=== PATIENT | male | born 1970 | race Caucasian/White ===

== ENCOUNTER 2016-12-10 14:40 | Inpatient (IN) | payer OTHER ==
[~2016-12-10] VITALS: Ht 180.3 cm; Wt 107.4 kg
[~2016-12-10 14:40] MED LIST: BCTROWC TOP; CRG/20 PO; HARVONI PO; LCTL30 PO; LSX20 PO; MULT-589 PO; NZRCR EXT; POTA20TA16 PO; PRT40 PO; RIBA200T4 PO; RIFA550T2 PO; SPRN100 PO
[2016-12-10] MEDS ORDERED: SODIUM CHLORIDE 0.9% 1000ML 1,000 ML IV STA (16:43)
--- NOTE | 2016-12-10 17:10 | DIAGNOSTIC IMAGING REPORT ---
CHEST ONE VIEW PORTABLE CLINICAL HISTORY: Altered mental status COMPARISON STUDY: 06/22/2015 FINDINGS: The cardiac and mediastinal contours remain stable. There is mild interstitial thickening. There is no lobar consolidation. As no overt failure. No pleural effusions are visualized.[ IMPRESSION: Mild interstitial thickening. No evidence of lobar consolidation Electronically signed by: Brice Coello M.D. 12/10/2016 5:08 PM Dictated Date/Time: 12/10/2016 5:08 PM
[2016-12-10] MEDS ORDERED: PRLSR20 PO (17:32)
[2016-12-10] MEDS ORDERED: FURO-85 PO (17:40)
[2016-12-10] MEDS ORDERED: SPIR25TA PO (17:42)
[2016-12-10] MEDS ORDERED: LACT10SO17 PO (17:44)
[2016-12-10] MEDS ORDERED: MoRPHine SULFATE 4 MG/ML 1 ML CARP\\VIAL IV STA (18:35)
[2016-12-10 18:41] LABS: INR 1.5 (0.9-1.1); PARTIAL THROMBOPLASTIN RATIO 1.4; PROTHROMBIN TIME (PATIENT) 16.2 SECONDS (9.0-12.0)
[2016-12-10 18:49] LABS: HEMATOCRIT 22.6 % (42-52); MEAN CELL VOLUME 84.3 fL (80-100); MEAN CORPUSCULAR HEMOGLOBIN 29.5 pg (25-34); PLATELET COUNT 61 K/uL (130-400); RED BLOOD COUNT 2.68 M/uL (4.7-6.1); WHITE BLOOD COUNT 5.91 K/uL (4.8-10.8)
[2016-12-10 18:53] LABS: BASO % 0.2 %; BASO ABS # 0.01 K/uL (0-0.2); COMPLETE YES; ECHINOCYTES 1+; EOS % 0.8 %; LYMPH % 13.7 %; LYMPH ABS # 0.81 K/uL (1.2-3.4); MONO % 9.1 %; NEUT % 75.2 %
[2016-12-10 19:52] LABS: ALKALINE PHOSPHATASE 165 U/L (45-117); ALT/SGPT 15 U/L (12-78); AST/SGOT 48 U/L (15-37); BLOOD UREA NITROGEN 11 mg/dl (7-18); BUN/CREATININE RATIO 10.4 (10-20); CALCIUM 6.6 mg/dl (8.5-10.1); CARBON DIOXIDE 22 mmol/L (21-32); CHLORIDE 108 mmol/L (98-107); GLUCOSE 85 mg/dl (70-99); MAGNESIUM 1.6 mg/dl (1.8-2.4); POTASSIUM 4.3 mmol/L (3.5-5.1); SODIUM 138 mmol/L (136-145)
[2016-12-10 20:10] LABS: URINE APPEARANCE CLOUDY (CLEAR); URINE COLOR DK YELLOW; URINE NITRITE POS (NEG); URINE SPECIFIC GRAVITY 1.014 (1.000-1.030); UROBILINOGEN NEG (NEG); ZZUR CULT IF INDIC CLEAN CATCH YES
[2016-12-10 20:13] LABS: MANUAL MICROSCOPIC REQUIRED? NO; REVIEW REQ? YES; URINE BILIRUBIN 3+ (NEG)
[2016-12-10] MEDS ORDERED: PIPERACILLIN/TAZOBACTAM 3.375 GM/100ML D5W IV STA (21:00)
--- NOTE | 2016-12-10 21:19 | EMERGENCY ROOM VISIT NOTE ---
History Report prepared by Florence: Kimberlee Younger Under the Supervision of: Dr. Garfield Raphael D.O. 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 The patient states that he has gained about 28 pounds in the last couple weeks which he relates to his increase in fluid retention. The patient state that he had these symptoms occurs in the past due to a blood infection and was treated with an antibiotic which resolved his symptoms. He also states that he has a history of cirrhosis due to hepatitis C. The patient states that he feels that he has appeared more jaundice recently than usual and has been sleeping more than usual. He states that recently he has had abdominal pain and a few weeks ago he had blood in his bowel but it has since been resolved. The patient denies any nausea, vomiting, diarrhea or skin infections. Source of History: patient Onset: a few weeks LITIGATION ATTORNEY Position: other (global) Symptom Intensity: 28 lbs Timing: worsening Associated Symptoms: + abdominal pain, + fevers, No diarrhea, No nausea, No vomiting Note: Patient denies any skin infections. Review of Systems See HPI for pertinent positives & negatives. A total of 10 systems reviewed and were otherwise negative. Past Medical & Surgical Medical Problems: (1) Acute gastric ulcer (2) Cellulitis (3) Chronic hepatitis C (4) Cirrhosis of liver (5) Dis Of Gallbladder Nos (6) Hypertension Nos Family History Diabetes mellitus Social History Smoking Status: Never Smoker Alcohol Use: other Drug Use: none Marital Status: single Housing Status: lives with family Occupation Status: unemployed Current/Historical Medications Scheduled Furosemide (Lasix), 20 MG PO BID Lactulose (Chronulac), 10 GM PO QID Nadolol (Corgard), 20 MG PO DAILY Omeprazole (Prilosec), 20 MG PO DAILY Potassium Ext Rel (Klor-Con), 20 MEQ PO DAILY Rifaximin (Xifaxan), 550 MG PO BID Spironolactone (Aldactone), 25 MG PO DAILY Allergies Coded Allergies: Furosemide (Verified Adverse Reaction, Unknown, MUSCLE CRAMPING, 10/22/14) Physical Exam Vital Signs Date Time Temp Pulse Resp B/P Pulse Ox O2 Delivery O2 Flow Rate FiO2 12/10/16 20:52 84 18 124/60 95 Room Air 12/10/16 20:43 86 12/10/16 19:28 85 18 121/53 95 Room Air 12/10/16 17:40 79 20 113/51 95 12/10/16 16:46 81 12/10/16 16:39 84 149/65 97 12/10/16 14:55 37.6 92 22 149/74 96 Room Air Physical Exam CONSTITUTIONAL/VITAL SIGNS: Reviewed / noted above. GENERAL: Non-toxic in appearance. INTEGUMENTARY: Warm, dry, and positive jaundice. HEAD: Normocephalic. EYES: scleral icterus positive or trauma. ENT/OROPHARYNX: clear and dry mucous membranes. LYMPHADENOPATHY/NECK: Is supple without lymphadenopathy or meningismus. RESPIRATORY: Lungs clear and equal. CARDIOVASCULAR: Regular rate and rhythm. GI/ABDOMEN: Soft and nontender. No organomegaly or pulsatile mass. No rebound or guarding. Normal bowel sounds. EXTREMITIES: Warm and well perfused. BACK: No CVA tenderness. NEUROLOGICAL: Intact without focal deficits. PSYCHIATRIC: normal affect. MUSCULOSKELETAL: Normally developed with good muscle tone. Medical Decision & Procedures ER Provider Diagnostic Interpretation: X ray results and stated below per my interpretation and radiology interpretation. CHEST ONE VIEW PORTABLE CLINICAL HISTORY: Altered mental status COMPARISON STUDY: 06/22/2015 FINDINGS: The cardiac and mediastinal contours remain stable. There is mild interstitial thickening. There is no lobar consolidation. As no overt failure. No pleural effusions are visualized.[ IMPRESSION: Mild interstitial thickening. No evidence of lobar consolidation Electronically signed by: Brice Coello M.D. 12/10/2016 5:08 PM Dictated Date/Time: 12/10/2016 5:08 PM Laboratory Results 12/10/16 18:22 Red Blood Count 2.68, Mean Corpuscular Volume 84.3, Mean Corpuscular Hemoglobin 29.5, Mean Corpuscular Hemoglobin Concent 35.0, Mean Platelet Volume 10.0, Neutrophils (%) (Auto) 75.2, Lymphocytes (%) (Auto) 13.7, Monocytes (%) (Auto) 9.1, Eosinophils (%) (Auto) 0.8, Basophils (%) (Auto) 0.2, Neutrophils # (Auto) 4.44, Lymphocytes # (Auto) 0.81, Monocytes # (Auto) 0.54, Eosinophils # (Auto) 0.05, Basophils # (Auto) 0.01 12/10/16 18:22 Test 12/10/16 14:30 12/10/16 18:22 Urine Color DK YELLOW Urine Appearance CLOUDY (CLEAR) Urine pH 6.0 (4.5-7.5) Urine Specific [place] 1.014 (1.000-1.030) Urine Protein NEG (NEG) Urine Glucose (UA) NEG (NEG) Urine Ketones NEG (NEG) Urine Occult Blood TRACE (NEG) Urine Nitrite POS (NEG) Urine Bilirubin 3+ (NEG) Urine Urobilinogen NEG (NEG) Urine Leukocyte Esterase MODERATE (NEG) Urine WBC (Auto) >30 /hpf (0-5) Urine RBC (Auto) 0-4 /hpf (0-4) Urine Hyaline Casts (Auto) 1-5 /lpf (0-5) Urine Epithelial Cells (Auto) 10-20 /lpf (0-5) Urine Bacteria (Auto) 4+ (NEG) Urine Yeast (Auto) PRESENT (NONE PRSENT) White Blood Count 5.91 K/uL (4.8-10.8) Red Blood Count 2.68 M/uL (4.7-6.1) Hemoglobin 7.9 g/dL (14.0-18.0) Hematocrit 22.6 % (42-52) Mean Corpuscular Volume 84.3 fL (80-100) Mean Corpuscular Hemoglobin 29.5 pg (25-34) Mean Corpuscular Hemoglobin Concent 35.0 g/dl (32-36) Platelet Count 61 K/uL (130-400) Mean Platelet Volume 10.0 fL (7.4-10.4) Neutrophils (%) (Auto) 75.2 % Lymphocytes (%) (Auto) 13.7 % Monocytes (%) (Auto) 9.1 % Eosinophils (%) (Auto) 0.8 % Basophils (%) (Auto) 0.2 % Neutrophils # (Auto) 4.44 K/uL (1.4-6.5) Lymphocytes # (Auto) 0.81 K/uL (1.2-3.4) Monocytes # (Auto) 0.54 K/uL (0.11-0.59) Eosinophils # (Auto) 0.05 K/uL (0-0.5) Basophils # (Auto) 0.01 K/uL (0-0.2) RDW Standard Deviation 65.9 fL (36.4-46.3) RDW Coefficient of Variation 21.5 % (11.5-14.5) Immature Granulocyte % (Auto) 1.0 % Immature Granulocyte # (Auto) 0.06 K/uL (0.00-0.02) Echinocytes 1+ Prothrombin Time 16.2 SECONDS (9.0-12.0) Prothromb Time International Ratio 1.5 (0.9-1.1) Activated Partial Thromboplast Time 35.5 SECONDS (21.0-31.0) Partial Thromboplastin Ratio 1.4 Anion Gap 8.0 mmol/L (3-11) Est Creatinine Clear Calc Drug Dose 104.6 ml/min Estimated GFR () 92.8 Estimated GFR (Non- 80.1 BUN/Creatinine Ratio 10.4 (10-20) Calcium Level 6.6 mg/dl (8.5-10.1) Magnesium Level 1.6 mg/dl (1.8-2.4) Total Bilirubin 10.3 mg/dl (0.2-1) Direct Bilirubin 8.5 mg/dl (0-0.2) Aspartate Amino Transf (AST/SGOT) 48 U/L (15-37) Alanine Aminotransferase (ALT/SGPT) 15 U/L (12-78) Alkaline Phosphatase 165 U/L (45-117) Ammonia 48.0 umol/L (11-32) Total Creatine Kinase 26 U/L (39-308) Creatine Kinase MB < 0.5 ng/ml (0.5-3.6) Creatine Kinase MB Ratio (0-3.0) Troponin I < 0.015 ng/ml (0-0.045) Total Protein 5.2 gm/dl (6.4-8.2) Albumin 1.3 gm/dl (3.4-5.0) Lipase 174 U/L (73-393) Thyroid Stimulating Hormone (TSH) 1.250 uIu/ml (0.300-4.500) Laboratory results as stated above per my review. Medications Administered Medications (Trade) Dose Ordered Sig/Jaren Route Start Time Stop Time Status Last Admin Dose Admin Sodium Chloride (Nss 1000ml) 1,000 ml @ 999 mls/hr Q1H1M STAT IV 2/6/17 16:43 12/10/16 17:43 DC 12/10/16 17:39 999 MLS/HR Morphine Sulfate (MoRPHine SULFATE INJ) 4 mg NOW STAT IV 12/10/16 18:35 12/10/16 18:36 DC 12/10/16 19:06 4 MG ECG Indication: abdominal pain Rate (beats per minute): 80 Rhythm: normal sinus Findings: no acute ischemic change, no ectopy ED Course 1636: Previous medical records were reviewed. The patient was evaluated in room C4. A complete history and physical examination was performed. 1642:Ordered Sodium Chloride 1,000 ml @ 999 mls/hr IV. 1834: Ordered Morphine Sulfate 4 mg IV. 2099: I reevaluated the patient and he was resting comfortably. 2111:I discussed the case with Dr. Kimo Morales. He agreed to evaluate the patient for further management and care. Medical Decision Differential includes acute coronary syndrome, myocardial infarction, CVA, TIA, anemia, infection, pneumonia, UTI, pyelonephritis, poor nutrition, dehydration, electrolyte disturbance,hypoglycemia, elevated ammonia. This is a 46-year-old male who presents to the ED with a chief complaint of fluid retention as well as increasing jaundice and sleeping all the time. The patient is a history of hepatitis C and cirrhosis. He states that he is noticed increased jaundice over the last 24 hours. He reports a 28 pound weight gain over the past few weeks. Compared to his weight a couple of years ago, he has actually lost weight, about 3 kg. His vital signs are stable. He is afebrile. His physical exam reveals jaundice and scleral icterus. His mucous membranes are dry. His abdomen soft and nontender. There is no other abnormality noted to the skin. Lungs were clear. EKG shows a normal sinus rhythm at a rate of 80. Chest x-ray is negative for acute disease. Hemoglobin is 7.9. INR is 1.5. Ammonia level is 48. Bilirubin is 10.3. Urine suggest infection. The patient was told results the test. He was treated with IV fluids, IV morphine for some pain as well as IV Zosyn. I spoke with the hospitalist, who will see the patient for further inpatient evaluation. Consults Time Called: 2099 Consulting Physician: Dr. Kimo Morales Returned Call: [phone] I discussed the case with Dr. Kimo Arzola Hospitalist. He agreed to evaluate the patient for further management and care. Impression Primary Impression: UTI (urinary tract infection) Additional Impressions: Anemia Hyperbilirubinemia GI bleed Cirrhosis Scribe Attestation The scribe's documentation has been prepared under my direction and personally reviewed by me in its entirety. I confirm that the note above accurately reflects all work, treatment, procedures, and medical decision making performed by me. Departure Information Dispostion Being Evaluated By Hospitalist Referrals MARCUS SHAW DO (PCP) Problem Qualifiers
--- NOTE | 2016-12-10 22:00 | History and Physical ---
History & Physical Date & Time of Service: Dec 10, 2016 at 21:47 Chief Complaint: Abdominal Distention, Jaundice Primary Care Physician: Valeria Lagunas M.D. History of Present Illness 46 year old male who presents to the ER with abdominal distention and jaundice. Patient reports his abdomen has been increasing in size and lower extremity edema over the past two weeks. He notes a 28 pound weight gain. He reports epigastric pain. No nausea or vomiting. His stools are chronically loose due to lactulose which are unchanged. He reports one episode of BRBPR. He reports blood was a small amount. He denies dark tarry stools. He also reports urinary frequency and hesitancy. He denies fever and chills. Over the past two days his skin has been turning yellow. He denies chest pain. He reports shortness of breath when laying down to sleep at night. He denies lightheadedness, dizziness , and diaphoresis. Family is at the bedside who report he has been lethargic over the past couple of days. In the ER, hgb is 7.9 (noted to be 7.8 06/2015). T. bili is found to be 10.5 (up from 3.5 06/2015). Ammonia is 48. U/A suggests possible UTI. Patient was given IV Zosyn, IVF, and morphine. Past Medical/Surgical History Medical Problems: (1) Cirrhosis Status: Chronic (2) Depression Status: Chronic (3) Esophageal varices Status: Chronic (4) Hepatitis C Status: Chronic (5) HTN (hypertension) Status: Chronic Family History FH: CAD (coronary artery disease) FATHER MOTHER Social History Smoking Status: Never Smoker Alcohol Use: former Drug Use: other (former IV drug use) Immunizations History of Influenza Vaccine: Yes Influenza Vaccine Date: Jul 05, 2012 History of Tetanus Vaccine?: Yes Tetanus Immunization Date: Jun 04, 2008 Allergies Coded Allergies: No Known Allergies (Unverified , 12/11/16) Home Medications Scheduled Furosemide (Lasix), 20 MG PO BID Lactulose (Chronulac), 10 GM PO QID Nadolol (Corgard), 20 MG PO DAILY Omeprazole (Prilosec), 20 MG PO DAILY Potassium Ext Rel (Klor-Con), 20 MEQ PO DAILY Rifaximin (Xifaxan), 550 MG PO BID Spironolactone (Aldactone), 25 MG PO DAILY Review of Systems 10 point review of systems was completed with the pertinent positives and negatives noted per the HPI Physical Exam Vital Signs Date Time Temp Pulse Resp B/P Pulse Ox O2 Delivery O2 Flow Rate FiO2 12/10/16 20:52 84 18 124/60 95 Room Air 12/10/16 20:43 86 12/10/16 19:28 85 18 121/53 95 Room Air 12/10/16 17:40 79 20 113/51 95 12/10/16 16:46 81 12/10/16 16:39 84 149/65 97 12/10/16 14:55 37.6 92 22 149/74 96 Room Air General Appearance: + mild distress (mild lethargy) Head: normocephalic Eyes: normal inspection ENT: hearing grossly normal Neck: supple, no JVD Respiratory/Chest: lungs clear, normal breath sounds, no respiratory distress Cardiovascular: regular rate, rhythm, + pertinent finding (+2 pitting edema BLLE) Abdomen/GI: normal bowel sounds, soft, + tenderness (epigastric), + distended Extremities/Musculoskelatal: normal inspection, no calf tenderness Neurologic/Psych: no motor/sensory deficits, oriented x 3, + pertinent finding (mild lethargy) Skin: warm/dry, + jaundice Diagnostics Laboratory Results Results Past 24 Hours Test 12/10/16 14:30 12/10/16 18:22 Range/Units Urine Color DK YELLOW Urine Appearance CLOUDY CLEAR Urine pH 6.0 4.5-7.5 Urine Specific [place] 1.014 1.000-1.030 Urine Protein NEG NEG Urine Glucose (UA) NEG NEG Urine Ketones NEG NEG Urine Occult Blood TRACE NEG Urine Nitrite POS NEG Urine Bilirubin 3+ NEG Urine Urobilinogen NEG NEG Urine Leukocyte Esterase MODERATE NEG Urine WBC (Auto) >30 0-5 /hpf Urine RBC (Auto) 0-4 0-4 /hpf Urine Hyaline Casts (Auto) 1-5 0-5 /lpf Urine Epithelial Cells (Auto) 10-20 0-5 /lpf Urine Bacteria (Auto) 4+ NEG Urine Yeast (Auto) PRESENT NONE PRSENT White Blood Count 5.91 4.8-10.8 K/uL Red Blood Count 2.68 4.7-6.1 M/uL Hemoglobin 7.9 14.0-18.0 g/dL Hematocrit 22.6 42-52 % Mean Corpuscular Volume 84.3 80-100 fL Mean Corpuscular Hemoglobin 29.5 25-34 pg Mean Corpuscular Hemoglobin Concent 35.0 32-36 g/dl Platelet Count 61 130-400 K/uL Mean Platelet Volume 10.0 7.4-10.4 fL Neutrophils (%) (Auto) 75.2 % Lymphocytes (%) (Auto) 13.7 % Monocytes (%) (Auto) 9.1 % Eosinophils (%) (Auto) 0.8 % Basophils (%) (Auto) 0.2 % Neutrophils # (Auto) 4.44 1.4-6.5 K/uL Lymphocytes # (Auto) 0.81 1.2-3.4 K/uL Monocytes # (Auto) 0.54 0.11-0.59 K/uL Eosinophils # (Auto) 0.05 0-0.5 K/uL Basophils # (Auto) 0.01 0-0.2 K/uL RDW Standard Deviation 65.9 36.4-46.3 fL RDW Coefficient of Variation 21.5 11.5-14.5 % Immature Granulocyte % (Auto) 1.0 % Immature Granulocyte # (Auto) 0.06 0.00-0.02 K/uL Echinocytes 1+ Prothrombin Time 16.2 9.0-12.0 SECONDS Prothromb Time International Ratio 1.5 0.9-1.1 Activated Partial Thromboplast Time 35.5 21.0-31.0 SECONDS Partial Thromboplastin Ratio 1.4 Sodium Level 138 136-145 mmol/L Potassium Level 4.3 3.5-5.1 mmol/L Chloride Level 108 98-107 mmol/L Carbon Dioxide Level 22 21-32 mmol/L Anion Gap 8.0 3-11 mmol/L Blood Urea Nitrogen 11 7-18 mg/dl Creatinine 1.10 0.60-1.40 mg/dl Est Creatinine Clear Calc Drug Dose 104.6 ml/min Estimated GFR () 92.8 Estimated GFR (Non- 80.1 BUN/Creatinine Ratio 10.4 10-20 Random Glucose 85 70-99 mg/dl Calcium Level 6.6 8.5-10.1 mg/dl Magnesium Level 1.6 1.8-2.4 mg/dl Total Bilirubin 10.3 0.2-1 mg/dl Direct Bilirubin 8.5 0-0.2 mg/dl Aspartate Amino Transf (AST/SGOT) 48 15-37 U/L Alanine Aminotransferase (ALT/SGPT) 15 12-78 U/L Alkaline Phosphatase 165 45-117 U/L Ammonia 48.0 11-32 umol/L Total Creatine Kinase 26 39-308 U/L Creatine Kinase MB < 0.5 0.5-3.6 ng/ml Creatine Kinase MB Ratio 0-3.0 Troponin I < 0.015 0-0.045 ng/ml Total Protein 5.2 6.4-8.2 gm/dl Albumin 1.3 3.4-5.0 gm/dl Lipase 174 73-393 U/L Thyroid Stimulating Hormone (TSH) 1.250 0.300-4.500 uIu/ml Microbiology Results 12/10/16 Blood Culture, Received Pending 12/10/16 Blood Culture, Received Pending 12/10/16 Urine Culture, Received Pending 12/10/16 Urine Culture, Received Pending Diagnostic Radiology CXR IMPRESSION: Mild interstitial thickening. No evidence of lobar consolidation Impression Assessment and Plan please refer to Dr. Malin's addendum for assessment and plan Assessment/Plan IM ATTENDING : Px seen and examined. Preceding documentation by NANI Barnard reviewed. FINAL ASSESSMENT AND PLAN as follows : 1. Decompensated cirrhosis HCV cirrhosis sp tx possible precipitants : infection (SBP) ? UGI bleed (px c/o epigastric pain with one episode of bloody stools; hx varices as per recent EGD) 2. mild hepatic encephalopathy 3. chronic anemia, hemoglobin at baseline 4. hypertension, stable 5. past tobacco/alcohol abuse as per records; PCU CT abd pelvis RE abd pain, further zuniga pending CT results diuretic rx IV PPI for poss UGIB, IV Ceftriaxone for prophylaxis facilitate lactulose. Follow ammonia. GI consult. Decompensated cirrhosis. DVT prophylaxis, SCDs. RE Gi bleed Full code.
[2016-12-10] MEDS ORDERED: NITROGLYCERIN 0.4 MG SL PER TAB CHARGE SL PRN (22:30)
[2016-12-10] MEDS ORDERED: LORAZEPAM 2 MG/ML 1 ML VIAL IV PRN (22:30)
[2016-12-10] MEDS ORDERED: ACETAMINOPHEN 325 MG TAB PO PRN (22:30)
[2016-12-10] MEDS ORDERED: ONDANSETRON INJ 2 MG/ML 2 ML VIAL IV PRN (22:30)
[2016-12-10] MEDS ORDERED: RIFAXIMIN TAB 550 MG TAB PO ONE ×2 (22:30→23:30)
[2016-12-10] MEDS ORDERED: OPTIRAY 320 IV PRN (22:30)
[2016-12-10] MEDS ORDERED: LORAZEPAM INJ 0.5 MG in SYRINGE 0.75 ML IV PRN (23:00)
[2016-12-10] MEDS ORDERED: PANTOprazole INJ 80 MG in SYRINGE 0 ML IV ONE (23:30)
[2016-12-10 23:54] VITALS: BP 111/66; PULSE 85; TEMP 37; O2SAT 96
[2016-12-11] MEDS ORDERED: FUROSEMIDE INJ 40 MG in SYRINGE 0 ML IV STA (00:19)
[2016-12-11] MEDS: LACTULOSE SYRUP 30 GM/45 ML UDP PO SCH ×4 (00:29→21:31)
[2016-12-11] MEDS ORDERED: PATIENT'S ALLERGY INFO NEEDS ENTERED SCH (00:30)
--- NOTE | 2016-12-11 02:52 | HISTORY & PHYSICAL EXAMINATION ---
DATE OF ADMISSION: 12/10/2016 IM ATTENDING : Eboni seen and examined. Preceding documentation by NANI Barnard reviewed. FINAL ASSESSMENT AND PLAN as follows : 1. Decompensated cirrhosis HCV cirrhosis sp tx possible precipitants : infection (SBP) ? UGI bleed (px c/o epigastric pain with one episode of bloody stools; hx varices as per recent EGD) 2. mild hepatic encephalopathy 3. chronic anemia, hemoglobin at baseline 4. hypertension, stable 5. past tobacco/alcohol abuse as per records; PCU CT abd pelvis RE abd pain, further zuniga pending CT results diuretic rx IV PPI for poss UGIB, IV Ceftriaxone for prophylaxis facilitate lactulose. Follow ammonia. GI consult. Decompensated cirrhosis. DVT prophylaxis, SCDs. Full code. MTDD
[2016-12-11 02:57] LABS: HEMATOCRIT 24.9 % (42-52)
[2016-12-11] MEDS ORDERED: CEFTRIAXONE SOD INJ 1 GM in DEXTROSE 5% ADD-VANTAGE 50ML 50 ML IV SCH (03:00)
[2016-12-11 04:49] VITALS: BP 111/66; PULSE 85; TEMP 37; Ht 180.3 cm; Wt 107.4 kg
[2016-12-11 08:21] VITALS: BP 104/59; PULSE 82; TEMP 36.7; O2SAT 93
--- NOTE | 2016-12-11 08:21 | DIAGNOSTIC IMAGING REPORT ---
CT SCAN OF THE ABDOMEN AND PELVIS WITH IV CONTRAST CLINICAL HISTORY: Generalized abdominal pain. COMPARISON STUDY: Abdominal CT dated 12/11/2016. TECHNIQUE: Following the IV administration of 93 cc of Optiray 320, CT scan of the abdomen and pelvis is performed from the lung bases to the proximal femora. Images are reviewed in the axial, sagittal, and coronal planes. IV contrast was administered without complication. Automated dose control exposure was utilized. The examination is degraded by large body habitus, and by streak artifact from the body wall abutting the CT gantry. CT DOSE: 1749.47 mGy.cm FINDINGS: Lung bases: The heart is mildly enlarged and without pericardial effusion. There are trace pleural effusions with dependent atelectasis. Gynecomastia is noted. There is a small hiatal hernia. Liver: The contrast-enhanced liver is cirrhotic in morphology and heterogeneous attenuation. There is nodularity of the hepatic surface contour with mild hypertrophy of the left lobe and caudate. There is no intrahepatic biliary ductal dilatation. The hepatic veins and portal veins are patent. There are perisplenic and perigastric varices. Recanalization is noted in the periumbilical vein. Gallbladder: The gallbladder is decompressed and contains calcified gallstones. There is nonspecific gallbladder wall thickening, likely related to cirrhosis and ascites. Spleen: The spleen is markedly enlarged, measuring 23.3 cm in length. Pancreas: The unenhanced pancreas is moderately atrophic and grossly unremarkable. Adrenal glands: Unremarkable. Kidneys: The contrast enhanced kidneys are mildly atrophic and without hydronephrosis. The kidneys enhance symmetrically. There is a small nonobstructing left renal calculus. Abdominal vasculature: The abdominal aorta is normal in course and caliber. Bowel: The gastric wall appears markedly thickened and edematous. There are dilated and fluid-filled loops of small bowel in the right lower quadrant. These measure up to 4.0 cm in diameter. The distal small bowel is decompressed. At least one transition point is identified in the mid abdomen on image #293. There is nonspecific wall thickening identified in the right colon, likely representing portal colopathy. The appendix is well-visualized and normal. Peritoneum: There is no intraperitoneal free air or abdominal ascites. There is a small volume of abdominopelvic ascites. No intraperitoneal free air is seen. There is no ascitic fluid containing umbilical hernia. Lymphadenopathy: None. Pelvic viscera: The bladder, prostate, and seminal vesicles are normal as visualized. Calcified phleboliths are seen in the pelvis. Skeletal structures: The skeletal structures are osteopenic. There is mild lumbosacral spondylosis. No lytic or blastic lesions are seen. Small bone islands are noted in the pelvis. Soft tissues: There is body wall edema. IMPRESSION: 1. Findings are consistent with a small bowel obstruction. At least one transition point is identified in the right mid abdomen. Several of the small bowel loops demonstrate a coiled appearance, and a closed loop obstruction is not excluded. Surgical consultation is advised. 2. Cirrhotic liver morphology with evidence of portal hypertension including marked splenomegaly, a small volume of abdominopelvic ascites, and omental collaterals/varices. 3. Cardiomegaly with evidence of fluid overload including body wall edema and trace pleural effusions. 4. Cholelithiasis. The gallbladder is decompressed. Gallbladder wall thickening is nonspecific and likely related to cirrhosis and ascites. Correlation with clinical findings and serum bilirubin levels be required. 5. Wall thickening and edema is identified in the distal stomach suggesting gastritis. 6. There is nonspecific wall thickening of the right colon, likely limited to portal colopathy. 7. Nonobstructing left renal calculus. 8. Additional changes as above. Electronically signed by: Keny Bush M.D. 12/11/2016 8:19 AM Dictated Date/Time: 12/11/2016 8:06 AM
[2016-12-11 08:34] LABS: HEMATOCRIT 23.8 % (42-52); MEAN CORPUSCULAR HEMOGLOBIN 28.6 pg (25-34); MEAN CORPUSCULAR HGB CONC 33.6 g/dl (32-36); WHITE BLOOD COUNT 6.35 K/uL (4.8-10.8)
[2016-12-11] MEDS: MoRPHine SULFATE 2 MG/ML CARP IV PRN ×2 (08:42→19:57)
[2016-12-11 08:45] LABS: MEAN PLATELET VOLUME 9.6 fL (7.4-10.4); PLATELET COUNT 57 K/uL (130-400)
[2016-12-11] MEDS: POTASSIUM CHLORIDE 20 MEQ TABCR PO SCH (08:48)
[2016-12-11] MEDS: RIFAXIMIN TAB 550 MG TAB PO SCH ×2 (08:48→21:31)
[2016-12-11] MEDS: NADOLOL 40 MG TAB PO SCH (08:49)
[2016-12-11 08:51] LABS: ALB/GLOB RATIO 0.3 (0.9-2); BUN/CREATININE RATIO 11.1 (10-20); CREATININE 1.2 mg/dl (0.60-1.40)
[2016-12-11] MEDS: PANTOprazole INJ 40 MG in SYRINGE 0 ML IV SCH ×2 (08:51→21:30)
[2016-12-11] MEDS ORDERED: FUROSEMIDE INJ 40 MG in SYRINGE 0 ML IV SCH (09:00)
[2016-12-11 09:49] LABS: ANISOCYTOSIS PRESENT; BASO % 0.2 %; BASO ABS # 0.01 K/uL (0-0.2); COMPLETE YES; EOS % 0.5 %; IG% 0.6 %; LYMPH % 11.7 %; LYMPH ABS # 0.74 K/uL (1.2-3.4)
--- NOTE | 2016-12-11 10:18 | Progress Note ---
Internal Med Progress Note Date of Service: Dec 11, 2016. Provider Documentation: SUBJECTIVE: Patient is asking for food. Does c/o abdominal distension, worsening x 2 weeks, abdominal pain, LE edema, weight gain. Nausea, no vomiting, no diarrhea. Last BM yesterday night, no blood. C/o subjective fevers OBJECTIVE: Vital Signs-as noted below Exam: General-Slow to respond, lethargic, oriented x 2 Eyes-Icterus Neck-Supple, NO JVD Lungs-AEBE decreased, no wheezing, rhonchi Heart-S1, S2 normal, no murmurs Abdomen-Soft, abdominal distension +, BS present, Non tender Extremities-Edema b/l up to below knee Neuro-Slow to respond, lethargic, oriented x 2 Lab data as noted below. CT ABDOMEN/PELVIS: IMPRESSION: 1. Findings are consistent with a small bowel obstruction. At least one transition point is identified in the right mid abdomen. Several of the small bowel loops demonstrate a coiled appearance, and a closed loop obstruction is not excluded. Surgical consultation is advised. 2. Cirrhotic liver morphology with evidence of portal hypertension including marked splenomegaly, a small volume of abdominopelvic ascites, and omental collaterals/varices. 3. Cardiomegaly with evidence of fluid overload including body wall edema and trace pleural effusions. 4. Cholelithiasis. The gallbladder is decompressed. Gallbladder wall thickening is nonspecific and likely related to cirrhosis and ascites. Correlation with clinical findings and serum bilirubin levels be required. 5. Wall thickening and edema is identified in the distal stomach suggesting gastritis. 6. There is nonspecific wall thickening of the right colon, likely limited to portal colopathy. 7. Nonobstructing left renal calculus. 8. Additional changes as above. ASSESSMENT & PLAN: ASSESSMENT/PLAN: CIRRHOSIS (HCV), DECOMPENSATED: -TB 10.3 on admission; Came with increasing abdominal distension, lower extremity edema. -On IV lasix, Rifaximin, Lactulose. -CT scan- mild ascites- small volume -GI consulted BACTEREMIA Bl cx came back positive for GNB -Sources: UTI. Considered SBP but CT scan- small volume ascites -Will d/c rocephin which was for SBP prophylaxis and change it to IV Zosyn for broader coverage -Follow up C/S urine, Bl cx C/S results SBO per CT scan -No hx of vomiting, had BM last night . CT scan shows SBO and recommends surgical consult -NPO -Will consult surgery HX OF BLOODY STOOL : -Had one episode of bloody stool 3 days ago. Hx of varices per recent EGD. No more episodes. HB stable around 8 -Protonix IV BID -H & H monitoring -GI consulted HEPATIC ENCEPHALOPATHY, MILD -Ammonia 48 on admission; Mental status- slow, but oriented x 2. -Lactulose 30 g TID, Rifaximin BID -Monitor CHRONIC ANEMIA -Hb at baseline -Monitor with hx of GI Bleeding/Varices THROMBOCYTOPENIA Platelets 61 on admission -Monitor DVT prophylaxis, SCDs. RE Gi bleed FULL CODE DISPOSITION To be determined Vital Signs: Date Time Temp Pulse Resp B/P Pulse Ox O2 Delivery O2 Flow Rate FiO2 12/11/16 08:21 36.7 82 16 104/59 93 Room Air 12/11/16 04:49 37.0 85 16 111/66 Room Air 12/11/16 00:00 Room Air 12/10/16 23:54 37.0 85 16 111/66 96 Room Air 12/10/16 22:21 37.0 85 18 122/69 95 12/10/16 21:47 85 18 128/70 95 Room Air 12/10/16 20:52 84 18 124/60 95 Room Air 12/10/16 20:43 86 12/10/16 19:28 85 18 121/53 95 Room Air 12/10/16 17:40 79 20 113/51 95 12/10/16 16:46 81 12/10/16 16:39 84 149/65 97 12/10/16 14:55 37.6 92 22 149/74 96 Room Air Lab Results: Results Past 24 Hours Test 12/10/16 14:30 12/10/16 18:22 12/11/16 02:45 12/11/16 08:15 Range/Units Urine Color DK YELLOW Urine Appearance CLOUDY CLEAR Urine pH 6.0 4.5-7.5 Urine Specific [place] 1.014 1.000-1.030 Urine Protein NEG NEG Urine Glucose (UA) NEG NEG Urine Ketones NEG NEG Urine Occult Blood TRACE NEG Urine Nitrite POS NEG Urine Bilirubin 3+ NEG Urine Urobilinogen NEG NEG Urine Leukocyte Esterase MODERATE NEG Urine WBC (Auto) >30 0-5 /hpf Urine RBC (Auto) 0-4 0-4 /hpf Urine Hyaline Casts (Auto) 1-5 0-5 /lpf Urine Epithelial Cells (Auto) 10-20 0-5 /lpf Urine Bacteria (Auto) 4+ NEG Urine Yeast (Auto) PRESENT NONE PRSENT White Blood Count 5.91 6.35 4.8-10.8 K/uL Red Blood Count 2.68 2.80 4.7-6.1 M/uL Hemoglobin 7.9 8.5 8.0 14.0-18.0 g/dL Hematocrit 22.6 24.9 23.8 42-52 % Mean Corpuscular Volume 84.3 85.0 80-100 fL Mean Corpuscular Hemoglobin 29.5 28.6 25-34 pg Mean Corpuscular Hemoglobin Concent 35.0 33.6 32-36 g/dl Platelet Count 61 57 130-400 K/uL Mean Platelet Volume 10.0 9.6 7.4-10.4 fL Neutrophils (%) (Auto) 75.2 82.0 % Lymphocytes (%) (Auto) 13.7 11.7 % Monocytes (%) (Auto) 9.1 5.0 % Eosinophils (%) (Auto) 0.8 0.5 % Basophils (%) (Auto) 0.2 0.2 % Neutrophils # (Auto) 4.44 5.21 1.4-6.5 K/uL Lymphocytes # (Auto) 0.81 0.74 1.2-3.4 K/uL Monocytes # (Auto) 0.54 0.32 0.11-0.59 K/uL Eosinophils # (Auto) 0.05 0.03 0-0.5 K/uL Basophils # (Auto) 0.01 0.01 0-0.2 K/uL RDW Standard Deviation 65.9 67.1 36.4-46.3 fL RDW Coefficient of Variation 21.5 21.5 11.5-14.5 % Immature Granulocyte % (Auto) 1.0 0.6 % Immature Granulocyte # (Auto) 0.06 0.04 0.00-0.02 K/uL Echinocytes 1+ Prothrombin Time 16.2 9.0-12.0 SECONDS Prothromb Time International Ratio 1.5 0.9-1.1 Activated Partial Thromboplast Time 35.5 21.0-31.0 SECONDS Partial Thromboplastin Ratio 1.4 Sodium Level 138 138 136-145 mmol/L Potassium Level 4.3 4.0 3.5-5.1 mmol/L Chloride Level 108 106 98-107 mmol/L Carbon Dioxide Level 22 21 21-32 mmol/L Anion Gap 8.0 11.0 3-11 mmol/L Blood Urea Nitrogen 11 13 7-18 mg/dl Creatinine 1.10 1.20 0.60-1.40 mg/dl Est Creatinine Clear Calc Drug Dose 104.6 95.9 ml/min Estimated GFR () 92.8 83.5 Estimated GFR (Non- 80.1 72.1 BUN/Creatinine Ratio 10.4 11.1 10-20 Random Glucose 85 86 70-99 mg/dl Calcium Level 6.6 7.0 8.5-10.1 mg/dl Magnesium Level 1.6 1.8-2.4 mg/dl Total Bilirubin 10.3 12.6 0.2-1 mg/dl Direct Bilirubin 8.5 0-0.2 mg/dl Aspartate Amino Transf (AST/SGOT) 48 50 15-37 U/L Alanine Aminotransferase (ALT/SGPT) 15 15 12-78 U/L Alkaline Phosphatase 165 147 45-117 U/L Ammonia 48.0 40.0 11-32 umol/L Total Creatine Kinase 26 39-308 U/L Creatine Kinase MB < 0.5 0.5-3.6 ng/ml Creatine Kinase MB Ratio 0-3.0 Troponin I < 0.015 0-0.045 ng/ml Pro-B-Type Natriuretic Peptide 484 0-450 pg/ml Total Protein 5.2 5.3 6.4-8.2 gm/dl Albumin 1.3 1.3 3.4-5.0 gm/dl Lipase 174 73-393 U/L Thyroid Stimulating Hormone (TSH) 1.250 0.300-4.500 uIu/ml Anisocytosis PRESENT Globulin 4.0 2.5-4.0 gm/dl Albumin/Globulin Ratio 0.3 0.9-2 Microbiology Results 12/10/16 Blood Culture - Preliminary, Resulted Gram Negative Bacilli 12/10/16 Blood Culture, Received Pending 12/10/16 Urine Culture, Received Pending
[2016-12-11] MEDS ORDERED: PIPERACILL/TAZOBAC CONSULT ACTIVE PRN (10:45)
[2016-12-11] MEDS ORDERED: PIPERACILL/TAZOBAC IV 3.375 GM in DEXTROSE 5% 100ML IV ONE (11:00)
[2016-12-11] MEDS: TRAMADOL HCL 50 MG TAB PO PRN (12:12)
--- NOTE | 2016-12-11 12:15 | Medical Consult ---
Consultation Date of Consultation: Dec 11, 2016. Attending Physician: Mimi Wise.Oscar History of Present Illness 46 y/o male with HCV cirrhosis admitted last night thru the ER for weight gain ( 28 lbs), jaundice, abdominal distention and LE edema. CT obtained this AM read as SBO, possible closed loop obstruction. Last BM was last night, was passing flatus last night, doesn't recall much today. No nausea, is asking to eat. No previous abdominal surgery. Past Medical/Surgical History (1) Cirrhosis Status: Chronic (2) Depression Status: Chronic (3) Esophageal varices Status: Chronic (4) Hepatitis C Status: Chronic (5) HTN (hypertension) Status: Chronic Family History FH: CAD (coronary artery disease) FATHER MOTHER Social History Smoking Status: Former Smoker Alcohol Use: former Drug Use: other (former IV drug use) Housing Status: lives with family Allergies Coded Allergies: No Known Allergies (Unverified , 12/11/16) Current Inpatient Medications Current Inpatient Medications Medications (Trade) Dose Ordered Sig/Jaren Route Start Time Stop Time Status Last Admin Dose Admin Ioversol (Optiray 320) 100 ml UD PRN IV 12/10/16 22:30 12/14/16 22:29 Lactulose (Chronulac Syrup) 30 gm TID PO 12/10/16 23:30 01/09/17 23:29 12/11/16 08:47 30 GM Acetaminophen (Tylenol Tab) 325 mg Q6H PRN PO 12/10/16 22:30 01/09/17 22:29 Nitroglycerin (Nitrostat Tab) 0.4 mg UD PRN SL 12/10/16 22:30 01/09/17 22:29 Nadolol (Corgard Tab) 20 mg DAILY PO 12/11/16 09:00 01/10/17 08:59 12/11/16 08:49 20 MG Potassium Chloride (Klor-Con Tab) 20 meq DAILY PO 12/11/16 09:00 01/10/17 08:59 12/11/16 08:48 20 MEQ Rifaximin (Xifaxan Tab) 550 mg BID PO 12/11/16 09:00 01/10/17 08:59 12/11/16 08:48 550 MG Ondansetron HCl (Zofran Inj) 4 mg Q6H PRN IV 12/10/16 22:30 01/09/17 22:29 Tramadol HCl (Ultram Tab) 25 mg Q6H PRN PO 12/10/16 22:30 01/09/17 22:29 Morphine Sulfate 2 mg 2 mg Q4H PRN IV 12/10/16 22:30 12/24/16 22:29 12/11/16 08:42 2 MG Lorazepam 0.5 mg/ Syringe 1 ml @ 1 mls/min Q4H PRN IV 12/10/16 23:00 01/09/17 22:59 Pantoprazole Sodium 40 mg/ Syringe 10 ml @ 5 mls/min BID IV 12/11/16 09:00 01/10/17 08:59 12/11/16 08:51 5 MLS/MIN Furosemide 40 mg/ Syringe 4 ml @ 4 mls/min DAILY IV 12/11/16 09:00 12/12/16 08:59 12/11/16 08:48 4 MLS/MIN Piperacillin Sod/ Tazobactam Sod/ Dextrose (Zosyn Iv/D5 100ml) 115 ml @ 28.75 mls/ hr Q8H IV 12/11/16 18:00 12/21/16 17:59 Piperacillin Sod/ Tazobactam Sod (Consult) 1 ea UD PRN N/A 12/11/16 10:45 01/10/17 10:44 Review of Systems Abdomen: No nausea, No pain, No vomiting Physical Exam Date Time Temp Pulse Resp B/P Pulse Ox O2 Delivery O2 Flow Rate FiO2 12/11/16 08:21 36.7 82 16 104/59 93 Room Air 12/11/16 04:49 37.0 85 16 111/66 Room Air 12/11/16 00:00 Room Air 12/10/16 23:54 37.0 85 16 111/66 96 Room Air 12/10/16 22:21 37.0 85 18 122/69 95 12/10/16 21:47 85 18 128/70 95 Room Air 12/10/16 20:52 84 18 124/60 95 Room Air 12/10/16 20:43 86 12/10/16 19:28 85 18 121/53 95 Room Air 12/10/16 17:40 79 20 113/51 95 12/10/16 16:46 81 12/10/16 16:39 84 149/65 97 12/10/16 14:55 37.6 92 22 149/74 96 Room Air General Appearance: no apparent distress Respiratory/Chest: lungs clear Cardiovascular: regular rate, rhythm Abdomen/GI: non tender, soft, + pertinent finding (edematous) Skin: + jaundice Laboratory Results Last 24 Hours Test 12/10/16 14:30 12/10/16 18:22 12/11/16 02:45 12/11/16 08:15 Urine Color DK YELLOW Urine Appearance CLOUDY Urine pH 6.0 Urine Specific [place] 1.014 Urine Protein NEG Urine Glucose (UA) NEG Urine Ketones NEG Urine Occult Blood TRACE Urine Nitrite POS Urine Bilirubin 3+ Urine Urobilinogen NEG Urine Leukocyte Esterase MODERATE Urine WBC (Auto) >30 /hpf Urine RBC (Auto) 0-4 /hpf Urine Hyaline Casts (Auto) 1-5 /lpf Urine Epithelial Cells (Auto) 10-20 /lpf Urine Bacteria (Auto) 4+ Urine Yeast (Auto) PRESENT White Blood Count 5.91 K/uL 6.35 K/uL Red Blood Count 2.68 M/uL 2.80 M/uL Hemoglobin 7.9 g/dL 8.5 g/dL 8.0 g/dL Hematocrit 22.6 % 24.9 % 23.8 % Mean Corpuscular Volume 84.3 fL 85.0 fL Mean Corpuscular Hemoglobin 29.5 pg 28.6 pg Mean Corpuscular Hemoglobin Concent 35.0 g/dl 33.6 g/dl Platelet Count 61 K/uL 57 K/uL Mean Platelet Volume 10.0 fL 9.6 fL Neutrophils (%) (Auto) 75.2 % 82.0 % Lymphocytes (%) (Auto) 13.7 % 11.7 % Monocytes (%) (Auto) 9.1 % 5.0 % Eosinophils (%) (Auto) 0.8 % 0.5 % Basophils (%) (Auto) 0.2 % 0.2 % Neutrophils # (Auto) 4.44 K/uL 5.21 K/uL Lymphocytes # (Auto) 0.81 K/uL 0.74 K/uL Monocytes # (Auto) 0.54 K/uL 0.32 K/uL Eosinophils # (Auto) 0.05 K/uL 0.03 K/uL Basophils # (Auto) 0.01 K/uL 0.01 K/uL RDW Standard Deviation 65.9 fL 67.1 fL RDW Coefficient of Variation 21.5 % 21.5 % Immature Granulocyte % (Auto) 1.0 % 0.6 % Immature Granulocyte # (Auto) 0.06 K/uL 0.04 K/uL Echinocytes 1+ Prothrombin Time 16.2 SECONDS Prothromb Time International Ratio 1.5 Activated Partial Thromboplast Time 35.5 SECONDS Partial Thromboplastin Ratio 1.4 Sodium Level 138 mmol/L 138 mmol/L Potassium Level 4.3 mmol/L 4.0 mmol/L Chloride Level 108 mmol/L 106 mmol/L Carbon Dioxide Level 22 mmol/L 21 mmol/L Anion Gap 8.0 mmol/L 11.0 mmol/L Blood Urea Nitrogen 11 mg/dl 13 mg/dl Creatinine 1.10 mg/dl 1.20 mg/dl Est Creatinine Clear Calc Drug Dose 104.6 ml/min 95.9 ml/min Estimated GFR () 92.8 83.5 Estimated GFR (Non- 80.1 72.1 BUN/Creatinine Ratio 10.4 11.1 Random Glucose 85 mg/dl 86 mg/dl Calcium Level 6.6 mg/dl 7.0 mg/dl Magnesium Level 1.6 mg/dl Total Bilirubin 10.3 mg/dl 12.6 mg/dl Direct Bilirubin 8.5 mg/dl Aspartate Amino Transf (AST/SGOT) 48 U/L 50 U/L Alanine Aminotransferase (ALT/SGPT) 15 U/L 15 U/L Alkaline Phosphatase 165 U/L 147 U/L Ammonia 48.0 umol/L 40.0 umol/L Total Creatine Kinase 26 U/L Creatine Kinase MB < 0.5 ng/ml Creatine Kinase MB Ratio Troponin I < 0.015 ng/ml Pro-B-Type Natriuretic Peptide 484 pg/ml Total Protein 5.2 gm/dl 5.3 gm/dl Albumin 1.3 gm/dl 1.3 gm/dl Lipase 174 U/L Thyroid Stimulating Hormone (TSH) 1.250 uIu/ml Anisocytosis PRESENT Globulin 4.0 gm/dl Albumin/Globulin Ratio 0.3 CT IMPRESSION: 1. Findings are consistent with a small bowel obstruction. At least one transition point is identified in the right mid abdomen. Several of the small bowel loops demonstrate a coiled appearance, and a closed loop obstruction is not excluded. Surgical consultation is advised. 2. Cirrhotic liver morphology with evidence of portal hypertension including marked splenomegaly, a small volume of abdominopelvic ascites, and omental collaterals/varices. 3. Cardiomegaly with evidence of fluid overload including body wall edema and trace pleural effusions. 4. Cholelithiasis. The gallbladder is decompressed. Gallbladder wall thickening is nonspecific and likely related to cirrhosis and ascites. Correlation with clinical findings and serum bilirubin levels be required. 5. Wall thickening and edema is identified in the distal stomach suggesting gastritis. 6. There is nonspecific wall thickening of the right colon, likely limited to portal colopathy. 7. Nonobstructing left renal calculus. 8. Additional changes as above. Electronically signed by: Keny Bush M.D. 12/11/2016 8:19 AM Dictated Date/Time: 12/11/2016 8:06 AM Assessment & Plan CIRRHOSIS (HCV), DECOMPENSATED Gram negative BACTEREMIA SBO vs ileus No acute abdominal findings, vitals stable. Overall clinical picture does not suggest closed loop obstruction. Could consider clears after GI eval. Will follow along.
--- NOTE | 2016-12-11 12:36 | Surgery Progress Note ---
Surgery Progress Note Date of Service Dec 11, 2016. Subjective see Jake Damian's note from today pt adm with abd distention, LE edema, wt gain, epigastric pain h/o cirrhosis, Hep C, ascites- has gm neg bacteremia on adm anemia, thrombocytopenia, elevated TB, PT/ INR CT shows dilated small bowel in lower abd- possible sbo- no h/o N/V Had normal loose BM and flatus today Objective Vital Signs: Date Time Temp Pulse Resp B/P Pulse Ox O2 Delivery O2 Flow Rate FiO2 12/11/16 08:21 36.7 82 16 104/59 93 Room Air 12/11/16 08:00 Room Air 12/11/16 04:49 37.0 85 16 111/66 Room Air 12/11/16 00:00 Room Air 12/10/16 23:54 37.0 85 16 111/66 96 Room Air 12/10/16 22:21 37.0 85 18 122/69 95 12/10/16 21:47 85 18 128/70 95 Room Air 12/10/16 20:52 84 18 124/60 95 Room Air 12/10/16 20:43 86 12/10/16 19:28 85 18 121/53 95 Room Air 12/10/16 17:40 79 20 113/51 95 12/10/16 16:46 81 12/10/16 16:39 84 149/65 97 12/10/16 14:55 37.6 92 22 149/74 96 Room Air General Appearance: no apparent distress Respiratory/Chest: no respiratory distress Cardiovascular: regular rate, rhythm Abdomen: normal bowel sounds (active bowel sounds), non tender, soft, + distended Extremities: + pedal edema (diffuse edema) Laboratory Results: Results Past 24 Hours Test 12/10/16 14:30 12/10/16 18:22 12/11/16 02:45 12/11/16 08:15 Range/Units Urine Color DK YELLOW Urine Appearance CLOUDY CLEAR Urine pH 6.0 4.5-7.5 Urine Specific [place] 1.014 1.000-1.030 Urine Protein NEG NEG Urine Glucose (UA) NEG NEG Urine Ketones NEG NEG Urine Occult Blood TRACE NEG Urine Nitrite POS NEG Urine Bilirubin 3+ NEG Urine Urobilinogen NEG NEG Urine Leukocyte Esterase MODERATE NEG Urine WBC (Auto) >30 0-5 /hpf Urine RBC (Auto) 0-4 0-4 /hpf Urine Hyaline Casts (Auto) 1-5 0-5 /lpf Urine Epithelial Cells (Auto) 10-20 0-5 /lpf Urine Bacteria (Auto) 4+ NEG Urine Yeast (Auto) PRESENT NONE PRSENT White Blood Count 5.91 6.35 4.8-10.8 K/uL Red Blood Count 2.68 2.80 4.7-6.1 M/uL Hemoglobin 7.9 8.5 8.0 14.0-18.0 g/dL Hematocrit 22.6 24.9 23.8 42-52 % Mean Corpuscular Volume 84.3 85.0 80-100 fL Mean Corpuscular Hemoglobin 29.5 28.6 25-34 pg Mean Corpuscular Hemoglobin Concent 35.0 33.6 32-36 g/dl Platelet Count 61 57 130-400 K/uL Mean Platelet Volume 10.0 9.6 7.4-10.4 fL Neutrophils (%) (Auto) 75.2 82.0 % Lymphocytes (%) (Auto) 13.7 11.7 % Monocytes (%) (Auto) 9.1 5.0 % Eosinophils (%) (Auto) 0.8 0.5 % Basophils (%) (Auto) 0.2 0.2 % Neutrophils # (Auto) 4.44 5.21 1.4-6.5 K/uL Lymphocytes # (Auto) 0.81 0.74 1.2-3.4 K/uL Monocytes # (Auto) 0.54 0.32 0.11-0.59 K/uL Eosinophils # (Auto) 0.05 0.03 0-0.5 K/uL Basophils # (Auto) 0.01 0.01 0-0.2 K/uL RDW Standard Deviation 65.9 67.1 36.4-46.3 fL RDW Coefficient of Variation 21.5 21.5 11.5-14.5 % Immature Granulocyte % (Auto) 1.0 0.6 % Immature Granulocyte # (Auto) 0.06 0.04 0.00-0.02 K/uL Echinocytes 1+ Prothrombin Time 16.2 9.0-12.0 SECONDS Prothromb Time International Ratio 1.5 0.9-1.1 Activated Partial Thromboplast Time 35.5 21.0-31.0 SECONDS Partial Thromboplastin Ratio 1.4 Sodium Level 138 138 136-145 mmol/L Potassium Level 4.3 4.0 3.5-5.1 mmol/L Chloride Level 108 106 98-107 mmol/L Carbon Dioxide Level 22 21 21-32 mmol/L Anion Gap 8.0 11.0 3-11 mmol/L Blood Urea Nitrogen 11 13 7-18 mg/dl Creatinine 1.10 1.20 0.60-1.40 mg/dl Est Creatinine Clear Calc Drug Dose 104.6 95.9 ml/min Estimated GFR () 92.8 83.5 Estimated GFR (Non- 80.1 72.1 BUN/Creatinine Ratio 10.4 11.1 10-20 Random Glucose 85 86 70-99 mg/dl Calcium Level 6.6 7.0 8.5-10.1 mg/dl Magnesium Level 1.6 1.8-2.4 mg/dl Total Bilirubin 10.3 12.6 0.2-1 mg/dl Direct Bilirubin 8.5 0-0.2 mg/dl Aspartate Amino Transf (AST/SGOT) 48 50 15-37 U/L Alanine Aminotransferase (ALT/SGPT) 15 15 12-78 U/L Alkaline Phosphatase 165 147 45-117 U/L Ammonia 48.0 40.0 11-32 umol/L Total Creatine Kinase 26 39-308 U/L Creatine Kinase MB < 0.5 0.5-3.6 ng/ml Creatine Kinase MB Ratio 0-3.0 Troponin I < 0.015 0-0.045 ng/ml Pro-B-Type Natriuretic Peptide 484 0-450 pg/ml Total Protein 5.2 5.3 6.4-8.2 gm/dl Albumin 1.3 1.3 3.4-5.0 gm/dl Lipase 174 73-393 U/L Thyroid Stimulating Hormone (TSH) 1.250 0.300-4.500 uIu/ml Anisocytosis PRESENT Globulin 4.0 2.5-4.0 gm/dl Albumin/Globulin Ratio 0.3 0.9-2 Microbiology Results 12/10/16 Blood Culture - Preliminary, Resulted Gram Negative Bacilli 12/10/16 Blood Culture, Received Pending 12/10/16 Urine Culture, Received Pending Assessment & Plan 12/11/16- Doubt has significant obstruction- try ice, popsicles, jello today. Has significant Hepatic insufficiency- elev TB, PT/INR, low plts anemia, ascites and probable SBP- would be extreme risk for abd operation.
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
[2016-12-11 16:10] VITALS: BP 121/70; PULSE 70; TEMP 37; O2SAT 92
--- NOTE | 2016-12-11 17:20 | DIAGNOSTIC IMAGING REPORT ---
PARACENTESIS UNDER ULTRASOUND GUIDANCE (NO CHARGE) CLINICAL HISTORY: cirrhosis, bacteremia, R/O SBP COMPARISON STUDY: CT scan dated December 11, 2016 FINDINGS: The risks, benefits, and alternatives to the procedure were discussed with the patient. Written informed consent was obtained. Following real-time ultrasound localization, the skin was prepped and draped. The study was very difficult from a technical standpoint given the patient's very large body habitus and redundant abdominal fat folds. There is only a small pocket of fluid within the right lower quadrant. The skin was anesthetized 1% lidocaine. An attempt was made to aspirate the fluid with a 20-gauge needle, but this was unsuccessful. There was no ultrasound staff available who were able to locate the ultrasound probe needle guide. The patient will be brought back in the morning when there is available staff to perform the study utilizing a needle guide. IMPRESSION: The examination was aborted, as there was no ultrasound staff available were able to locate the ultrasound probe needle guide. The patient will be rescheduled for the morning when there is adequate ultrasound staff available. Electronically signed by: Brice Coello M.D. 12/11/2016 5:19 PM Dictated Date/Time: 12/11/2016 5:11 PM
[2016-12-11] MEDS: PIPERACILL/TAZOBAC IV 3.375 GM in DEXTROSE 5% 100ML 100 ML IV SCH (17:27)
[2016-12-11 23:58] VITALS: BP 99/54; PULSE 70; TEMP 36.7; O2SAT 93
[2016-12-12] MEDS: PIPERACILL/TAZOBAC IV 3.375 GM in DEXTROSE 5% 100ML 100 ML IV SCH ×3 (02:19→18:55)
[2016-12-12] MEDS: MoRPHine SULFATE 2 MG/ML CARP IV PRN (06:27)
--- NOTE | 2016-12-12 06:39 | Surgery Progress Note ---
Surgery Progress Note Date of Service Dec 12, 2016. Subjective + bowel movement, + flatus, No nausea, No vomiting feeling much better- Large bm, good urine output- improved with IV fluid/ atbx Objective Vital Signs: Date Time Temp Pulse Resp B/P Pulse Ox O2 Delivery O2 Flow Rate FiO2 12/12/16 00:00 Room Air 12/11/16 23:58 36.7 70 18 99/54 93 Room Air 12/11/16 20:00 Room Air 12/11/16 16:10 37.0 70 16 121/70 92 Room Air 12/11/16 16:00 Room Air 12/11/16 08:21 36.7 82 16 104/59 93 Room Air 12/11/16 08:00 Room Air General Appearance: no apparent distress Respiratory/Chest: no respiratory distress Abdomen: normal bowel sounds, soft Laboratory Results: Results Past 24 Hours Test 12/11/16 08:15 12/11/16 15:47 12/12/16 04:44 Range/Units White Blood Count 6.35 4.8-10.8 K/uL Red Blood Count 2.80 4.7-6.1 M/uL Hemoglobin 8.0 14.0-18.0 g/dL Hematocrit 23.8 42-52 % Mean Corpuscular Volume 85.0 80-100 fL Mean Corpuscular Hemoglobin 28.6 25-34 pg Mean Corpuscular Hemoglobin Concent 33.6 32-36 g/dl Platelet Count 57 130-400 K/uL Mean Platelet Volume 9.6 7.4-10.4 fL Neutrophils (%) (Auto) 82.0 % Lymphocytes (%) (Auto) 11.7 % Monocytes (%) (Auto) 5.0 % Eosinophils (%) (Auto) 0.5 % Basophils (%) (Auto) 0.2 % Neutrophils # (Auto) 5.21 1.4-6.5 K/uL Lymphocytes # (Auto) 0.74 1.2-3.4 K/uL Monocytes # (Auto) 0.32 0.11-0.59 K/uL Eosinophils # (Auto) 0.03 0-0.5 K/uL Basophils # (Auto) 0.01 0-0.2 K/uL RDW Standard Deviation 67.1 36.4-46.3 fL RDW Coefficient of Variation 21.5 11.5-14.5 % Immature Granulocyte % (Auto) 0.6 % Immature Granulocyte # (Auto) 0.04 0.00-0.02 K/uL Anisocytosis PRESENT Sodium Level 138 136-145 mmol/L Potassium Level 4.0 3.5-5.1 mmol/L Chloride Level 106 98-107 mmol/L Carbon Dioxide Level 21 21-32 mmol/L Anion Gap 11.0 3-11 mmol/L Blood Urea Nitrogen 13 7-18 mg/dl Creatinine 1.20 0.60-1.40 mg/dl Est Creatinine Clear Calc Drug Dose 95.9 ml/min Estimated GFR () 83.5 Estimated GFR (Non- 72.1 BUN/Creatinine Ratio 11.1 10-20 Random Glucose 86 70-99 mg/dl Calcium Level 7.0 8.5-10.1 mg/dl Total Bilirubin 12.6 0.2-1 mg/dl Aspartate Amino Transf (AST/SGOT) 50 15-37 U/L Alanine Aminotransferase (ALT/SGPT) 15 12-78 U/L Alkaline Phosphatase 147 45-117 U/L Ammonia 40.0 11-32 umol/L Total Protein 5.3 6.4-8.2 gm/dl Albumin 1.3 3.4-5.0 gm/dl Globulin 4.0 2.5-4.0 gm/dl Albumin/Globulin Ratio 0.3 0.9-2 Assessment & Plan 12/12/16- affect much improved- sitting on edge of bed- will adv to full liquid diet- monitor for N/V- treating UTI/ bacteremia 12/11/16- Doubt has significant obstruction- try ice, popsicles, jello today. Has significant Hepatic insufficiency- elev TB, PT/INR, low plts anemia, ascites and probable SBP- would be extreme risk for abd operation. 12/11/16- Doubt has significant obstruction- try ice, popsicles, jello today. Has significant Hepatic insufficiency- elev TB, PT/INR, low plts anemia, ascites and probable SBP- would be extreme risk for abd operation.
[2016-12-12 07:16] LABS: HEMATOCRIT 23.9 % (42-52); MEAN CELL VOLUME 86.6 fL (80-100); MEAN CORPUSCULAR HGB CONC 33.5 g/dl (32-36); RED BLOOD COUNT 2.76 M/uL (4.7-6.1); WHITE BLOOD COUNT 4.84 K/uL (4.8-10.8)
[2016-12-12 07:20] LABS: MEAN PLATELET VOLUME 10.1 fL (7.4-10.4); PLATELET COUNT 67 K/uL (130-400)
[2016-12-12 07:36] VITALS: BP 102/50; PULSE 70; TEMP 36.6; O2SAT 93
[2016-12-12 07:44] LABS: BUN/CREATININE RATIO 12.8 (10-20); CALCIUM 7.2 mg/dl (8.5-10.1); CREATININE 1.3 mg/dl (0.60-1.40); POTASSIUM 3.7 mmol/L (3.5-5.1)
[2016-12-12 07:48] LABS: ALB/GLOB RATIO 0.3 (0.9-2)
[2016-12-12 07:52] LABS: ANISOCYTOSIS PRESENT; BASO % 0.2 %; BASO ABS # 0.01 K/uL (0-0.2); COMPLETE YES; EOS % 1.4 %; IG% 1.7 %; LYMPH % 16.5 %; MONO % 6.2 %
[2016-12-12] MEDS: PANTOprazole INJ 40 MG in SYRINGE 0 ML IV SCH ×2 (08:24→21:29)
[2016-12-12] MEDS: POTASSIUM CHLORIDE 20 MEQ TABCR PO SCH (08:24)
[2016-12-12] MEDS: NADOLOL 40 MG TAB PO SCH (08:24)
[2016-12-12] MEDS: RIFAXIMIN TAB 550 MG TAB PO SCH ×2 (08:25→21:29)
[2016-12-12 08:49] VITALS: O2SAT 93
--- NOTE | 2016-12-12 10:12 | Progress Note ---
Internal Med Progress Note Date of Service: Dec 12, 2016. Provider Documentation: SUBJECTIVE: Patient is feeling better today. More awake, sitting at edge of bed. Does c/o abdominal distension, worsening x 2 weeks, abdominal pain, LE edema, weight gain. Nausea, no vomiting, no diarrhea. BMS- multiple sec to lactulose Afebrile, no abdominal pain. Tolerating full liquid diet well. OBJECTIVE: Vital Signs-as noted below Exam: General-More awake, AAOX3, no distress Eyes-Icterus Neck-Supple, NO JVD Lungs-AEBE decreased, no wheezing, rhonchi Heart-S1, S2 normal, no murmurs Abdomen-Soft, abdominal distension +, BS present, Non tender Extremities-Edema b/l up to below knee Neuro-AAOX3, more awake, no focal deficits Lab data as noted below. CT ABDOMEN/PELVIS: IMPRESSION: 1. Findings are consistent with a small bowel obstruction. At least one transition point is identified in the right mid abdomen. Several of the small bowel loops demonstrate a coiled appearance, and a closed loop obstruction is not excluded. Surgical consultation is advised. 2. Cirrhotic liver morphology with evidence of portal hypertension including marked splenomegaly, a small volume of abdominopelvic ascites, and omental collaterals/varices. 3. Cardiomegaly with evidence of fluid overload including body wall edema and trace pleural effusions. 4. Cholelithiasis. The gallbladder is decompressed. Gallbladder wall thickening is nonspecific and likely related to cirrhosis and ascites. Correlation with clinical findings and serum bilirubin levels be required. 5. Wall thickening and edema is identified in the distal stomach suggesting gastritis. 6. There is nonspecific wall thickening of the right colon, likely limited to portal colopathy. 7. Nonobstructing left renal calculus. 8. Additional changes as above. ASSESSMENT & PLAN: ASSESSMENT/PLAN: CIRRHOSIS (HCV), DECOMPENSATED: -TB 10.3 on admission; Came with increasing abdominal distension, lower extremity edema. -S/P IV lasix x 1 day and now on hold per GI, Rifaximin, Lactulose- hold as > 3 BMS -CT scan- mild ascites- small volume -GI consulted. Discussed with dany Woods inputs BACTEREMIA (GNB) Bl cx came back positive for GNB- 1/2 bottles, 2nd- negative -Sources: UTI growing E coli. Considered SBP but CT scan- small volume ascites, unable to perform it yesterday and patient is refusing procedure today, but doubt it is SBP. -IV Zosyn (Day 2) -Urine c/s- E coli, Blood cx- GNB- follow up SBO per CT scan -No hx of vomiting, has had multiple BMS . CT scan shows SBO and recommended surgical consult -Tolerating full liquid diet well -Surgery on board- appreciate inputs HX OF BLOODY STOOL/GI BLEEDING : -Had one episode of bloody stool 3 days [employer]. Hx of varices per recent EGD. Has had EGD/Colonoscopy in past No more episodes. HB stable around 8 -Protonix IV BID -H & H monitoring -GI consulted. Appreciate inputs HEPATIC ENCEPHALOPATHY, MILD- Resolved -Ammonia 48 on admission-trending down; Mental status- slow, but oriented x 2 on admission, now AAOX3. -Lactulose 30 g TID (on hold as > 3 BMS), Rifaximin BID -Monitor CHRONIC ANEMIA -Hb at baseline -Monitor with hx of GI Bleeding/Varices. No episodes of GI bleeding THROMBOCYTOPENIA Platelets 61 on admission -No active bleeding noted -Monitor DVT prophylaxis, SCDs. RE Gi bleed FULL CODE DISPOSITION To be determined Vital Signs: Date Time Temp Pulse Resp B/P Pulse Ox O2 Delivery O2 Flow Rate FiO2 12/12/16 08:49 93 Room Air 12/12/16 07:36 36.6 70 20 102/50 93 Room Air 12/12/16 00:00 Room Air 12/11/16 23:58 36.7 70 18 99/54 93 Room Air 12/11/16 20:00 Room Air 12/11/16 16:10 37.0 70 16 121/70 92 Room Air 12/11/16 16:00 Room Air Lab Results: Results Past 24 Hours Test 12/11/16 15:47 12/12/16 06:58 Range/Units White Blood Count 4.84 4.8-10.8 K/uL Red Blood Count 2.76 4.7-6.1 M/uL Hemoglobin 8.0 14.0-18.0 g/dL Hematocrit 23.9 42-52 % Mean Corpuscular Volume 86.6 80-100 fL Mean Corpuscular Hemoglobin 29.0 25-34 pg Mean Corpuscular Hemoglobin Concent 33.5 32-36 g/dl Platelet Count 67 130-400 K/uL Mean Platelet Volume 10.1 7.4-10.4 fL Neutrophils (%) (Auto) 74.0 % Lymphocytes (%) (Auto) 16.5 % Monocytes (%) (Auto) 6.2 % Eosinophils (%) (Auto) 1.4 % Basophils (%) (Auto) 0.2 % Neutrophils # (Auto) 3.58 1.4-6.5 K/uL Lymphocytes # (Auto) 0.80 1.2-3.4 K/uL Monocytes # (Auto) 0.30 0.11-0.59 K/uL Eosinophils # (Auto) 0.07 0-0.5 K/uL Basophils # (Auto) 0.01 0-0.2 K/uL RDW Standard Deviation 67.3 36.4-46.3 fL RDW Coefficient of Variation 21.4 11.5-14.5 % Immature Granulocyte % (Auto) 1.7 % Immature Granulocyte # (Auto) 0.08 0.00-0.02 K/uL Anisocytosis PRESENT Sodium Level 138 136-145 mmol/L Potassium Level 3.7 3.5-5.1 mmol/L Chloride Level 105 98-107 mmol/L Carbon Dioxide Level 25 21-32 mmol/L Anion Gap 8.0 3-11 mmol/L Blood Urea Nitrogen 17 7-18 mg/dl Creatinine 1.30 0.60-1.40 mg/dl Est Creatinine Clear Calc Drug Dose 88.5 ml/min Estimated GFR () 75.8 Estimated GFR (Non- 65.4 BUN/Creatinine Ratio 12.8 10-20 Random Glucose 74 70-99 mg/dl Calcium Level 7.2 8.5-10.1 mg/dl Total Bilirubin 13.9 0.2-1 mg/dl Aspartate Amino Transf (AST/SGOT) 49 15-37 U/L Alanine Aminotransferase (ALT/SGPT) 17 12-78 U/L Alkaline Phosphatase 144 45-117 U/L Total Protein 5.3 6.4-8.2 gm/dl Albumin 1.3 3.4-5.0 gm/dl Globulin 4.0 2.5-4.0 gm/dl Albumin/Globulin Ratio 0.3 0.9-2
[2016-12-12] MEDS: TRAMADOL HCL 50 MG TAB PO PRN (10:30)
--- NOTE | 2016-12-12 12:19 | Gastroenterology Progress Note ---
Progress Note Date of Service: Dec 12, 2016 Subjective Pt evaluation today including: conversation w/ patient, physical exam, chart review, lab review, review of studies, review of inpatient medication list Mr. Xiong is a 46 yr old male admitted on 12/10 for decompensated cirrhosis. Urine/blood cultures positive for Gram (-) bacilli. CT with suggestion of small bowel obstruction but pt passing gas, stooling and surgery recommends conservative care. Pt refuses paracentesis this morning - and at this point as already on antibiotics for >24 hrs and antibiotics need to be continued to urinary sepsis, would agree to defer the paracentesis as it would not likely change the course of his treatment. Pt more awake and alert this morning. Says stomach feels a bit better. Asks for food. Of concern: T bili increasing: was 10.3 on arrival, today 13.9. Creatinine also increasin.1 on arrival, 1.3 today. Review of Systems Constitutional: No fever Respiratory: No cough Cardiac: No chest pain Abdomen: + diarrhea, + jaundice, + pain, + see HPI, No GI bleeding, No constipation, No nausea, No vomiting Male : No dysuria Neuro: + problem reported (poor historian but no evidence of confusion or memory loss), No memory loss Psych: No depression symptoms Heme: No abnormal bleeding/bruising Skin: + jaundice Medications Current Inpatient Medications Medications (Trade) Dose Ordered Sig/Jaren Route Start Time Stop Time Status Last Admin Dose Admin Ioversol (Optiray 320) 100 ml UD PRN IV 12/10/16 22:30 12/14/16 22:29 Lactulose (Chronulac Syrup) 30 gm TID PO 12/10/16 23:30 01/09/17 23:29 Future Hold 12/11/16 21:31 30 GM Acetaminophen (Tylenol Tab) 325 mg Q6H PRN PO 12/10/16 22:30 01/09/17 22:29 Nitroglycerin (Nitrostat Tab) 0.4 mg UD PRN SL 12/10/16 22:30 01/09/17 22:29 Nadolol (Corgard Tab) 20 mg DAILY PO 12/11/16 09:00 01/10/17 08:59 12/12/16 08:24 20 MG Potassium Chloride (Klor-Con Tab) 20 meq DAILY PO 12/11/16 09:00 01/10/17 08:59 12/12/16 08:24 20 MEQ Rifaximin (Xifaxan Tab) 550 mg BID PO 12/11/16 09:00 01/10/17 08:59 12/12/16 08:25 550 MG Ondansetron HCl (Zofran Inj) 4 mg Q6H PRN IV 12/10/16 22:30 01/09/17 22:29 Tramadol HCl 25 mg 25 mg Q6H PRN PO 12/10/16 22:30 01/09/17 22:29 12/12/16 10:30 25 MG Lorazepam 0.5 mg/ Syringe 1 ml @ 1 mls/min Q4H PRN IV 12/10/16 23:00 01/09/17 22:59 Pantoprazole Sodium 40 mg/ Syringe 10 ml @ 5 mls/min BID IV 12/11/16 09:00 01/10/17 08:59 12/12/16 08:24 5 MLS/MIN Piperacillin Sod/ Tazobactam Sod/ Dextrose (Zosyn Iv/D5 100ml) 115 ml @ 28.75 mls/ hr Q8H IV 12/11/16 18:00 12/21/16 17:59 12/12/16 10:28 28.75 MLS/HR Piperacillin Sod/ Tazobactam Sod (Consult) 1 ea UD PRN N/A 12/11/16 10:45 01/10/17 10:44 Objective Vital Signs Date Time Temp Pulse Resp B/P Pulse Ox O2 Delivery O2 Flow Rate FiO2 12/12/16 08:49 93 Room Air 12/12/16 07:36 36.6 70 20 102/50 93 Room Air 12/12/16 00:00 Room Air 12/11/16 23:58 36.7 70 18 99/54 93 Room Air 12/11/16 20:00 Room Air 12/11/16 16:10 37.0 70 16 121/70 92 Room Air 12/11/16 16:00 Room Air Physical Exam General Appearance: no apparent distress, + obese Neck: thyroid normal, no JVD Respiratory/Chest: lungs clear, + decreased breath sounds Cardiovascular: regular rate, rhythm, no JVD, no murmur Abdomen: soft, + tenderness (mild lower abdomen tenderness) Extremities: + pedal edema (improved, now non pitting bilateral lower leg and feet) Neurologic/Psych: alert, normal mood/affect, oriented x 3 Skin: + jaundice Laboratory Results Last 24 Hours Test 12/11/16 15:47 12/12/16 06:58 White Blood Count 4.84 K/uL Red Blood Count 2.76 M/uL Hemoglobin 8.0 g/dL Hematocrit 23.9 % Mean Corpuscular Volume 86.6 fL Mean Corpuscular Hemoglobin 29.0 pg Mean Corpuscular Hemoglobin Concent 33.5 g/dl Platelet Count 67 K/uL Mean Platelet Volume 10.1 fL Neutrophils (%) (Auto) 74.0 % Lymphocytes (%) (Auto) 16.5 % Monocytes (%) (Auto) 6.2 % Eosinophils (%) (Auto) 1.4 % Basophils (%) (Auto) 0.2 % Neutrophils # (Auto) 3.58 K/uL Lymphocytes # (Auto) 0.80 K/uL Monocytes # (Auto) 0.30 K/uL Eosinophils # (Auto) 0.07 K/uL Basophils # (Auto) 0.01 K/uL RDW Standard Deviation 67.3 fL RDW Coefficient of Variation 21.4 % Immature Granulocyte % (Auto) 1.7 % Immature Granulocyte # (Auto) 0.08 K/uL Anisocytosis PRESENT Sodium Level 138 mmol/L Potassium Level 3.7 mmol/L Chloride Level 105 mmol/L Carbon Dioxide Level 25 mmol/L Anion Gap 8.0 mmol/L Blood Urea Nitrogen 17 mg/dl Creatinine 1.30 mg/dl Est Creatinine Clear Calc Drug Dose 88.5 ml/min Estimated GFR () 75.8 Estimated GFR (Non- 65.4 BUN/Creatinine Ratio 12.8 Random Glucose 74 mg/dl Calcium Level 7.2 mg/dl Total Bilirubin 13.9 mg/dl Aspartate Amino Transf (AST/SGOT) 49 U/L Alanine Aminotransferase (ALT/SGPT) 17 U/L Alkaline Phosphatase 144 U/L Total Protein 5.3 gm/dl Albumin 1.3 gm/dl Globulin 4.0 gm/dl Albumin/Globulin Ratio 0.3 Assessment and Plan Mr. Xiong is a 46 yr old male with HepC/ETOH cirrhosis. Plan: 1. Continue treatment of urosepsis by primary care. 2. Appreciate surgery input. 3. Follow LFTs, Cr. Attg addendum: I interviewed an examined pt, reviewed chart and labs. Pt is without complaint. He is steph PO intake, with mult BM's. Abd is soft, and non tender. Presumably he has uro sepsis. Abx per primary service. His creat is rising; would cont albumin infusions for now.
[2016-12-12] MEDS: ALBUMIN HUMAN 25% 12.5 GM/50 ML VIAL IV SCH ×2 (14:59→15:51)
[2016-12-12] MEDS: OXYCODONE HCL IR 5 MG TAB (IMMEDIATE RELEASE) PO PRN (15:04)
[2016-12-12 15:05] VITALS: BP 104/54; PULSE 66
[2016-12-12 16:00] VITALS: O2SAT 93
[2016-12-12 16:44] VITALS: BP 115/59; PULSE 68; TEMP 36.2; O2SAT 93
[2016-12-12 23:52] VITALS: BP 96/51; PULSE 65; TEMP 36.8; O2SAT 93
[2016-12-13] VITALS (10 sets, daily range): BP systolic 106–133; BP diastolic 59–91; PULSE 66–78; TEMP 36.3–36.8; O2SAT 96–100
[2016-12-13] MEDS: OXYCODONE HCL IR 5 MG TAB (IMMEDIATE RELEASE) PO PRN ×3 (00:24→23:49)
[2016-12-13] MEDS: PIPERACILL/TAZOBAC IV 3.375 GM in DEXTROSE 5% 100ML 100 ML IV SCH ×2 (01:22→10:01)
[2016-12-13] MEDS: ALBUMIN HUMAN 25% 12.5 GM/50 ML VIAL IV SCH ×4 (02:18→19:44)
[2016-12-13 07:41] LABS: HEMATOCRIT 21.8 % (42-52); MEAN CELL VOLUME 85.5 fL (80-100); MEAN CORPUSCULAR HGB CONC 33.9 g/dl (32-36); RED BLOOD COUNT 2.55 M/uL (4.7-6.1); WHITE BLOOD COUNT 2.43 K/uL (4.8-10.8)
[2016-12-13 07:46] LABS: MEAN PLATELET VOLUME 9.8 fL (7.4-10.4); PLATELET COUNT 59 K/uL (130-400)
[2016-12-13] MEDS: PANTOprazole INJ 40 MG in SYRINGE 0 ML IV SCH (07:47)
[2016-12-13] MEDS: RIFAXIMIN TAB 550 MG TAB PO SCH ×2 (07:48→20:50)
[2016-12-13] MEDS: NADOLOL 40 MG TAB PO SCH (07:48)
[2016-12-13] MEDS: POTASSIUM CHLORIDE 20 MEQ TABCR PO SCH (07:48)
[2016-12-13 08:02] LABS: ANISOCYTOSIS PRESENT; BASO % 0.4 %; BASO ABS # 0.01 K/uL (0-0.2); COMPLETE YES; EOS % 2.5 %; IG% 1.6 %; LYMPH % 24.3 %; LYMPH ABS # 0.59 K/uL (1.2-3.4); MONO % 7.4 %; NEUT % 63.8 %
[2016-12-13 08:23] LABS: ALB/GLOB RATIO 0.5 (0.9-2); CALCIUM 7.1 mg/dl (8.5-10.1); POTASSIUM 3.9 mmol/L (3.5-5.1)
--- NOTE | 2016-12-13 10:15 | Progress Note ---
Internal Med Progress Note Date of Service: Dec 13, 2016. Provider Documentation: SUBJECTIVE: Patient is feeling better but c/o fatigue. Does c/o abdominal distension, worsening x 2 weeks, abdominal pain, LE edema, weight gain. Nausea, no vomiting, no diarrhea. BMS- multiple sec to lactulose Afebrile, no abdominal pain. Tolerating diet well OBJECTIVE: Vital Signs-as noted below Exam: General-More awake, AAOX3, no distress Eyes-Icterus Neck-Supple, NO JVD Lungs-AEBE decreased, coarse bs +, no wheezing, rhonchi Heart-S1, S2 normal, no murmurs Abdomen-Soft, abdominal distension +, BS present, Non tender Extremities-Edema b/l up to below knee Neuro-AAOX3, more awake, no focal deficits Lab data as noted below. CT ABDOMEN/PELVIS: IMPRESSION: 1. Findings are consistent with a small bowel obstruction. At least one transition point is identified in the right mid abdomen. Several of the small bowel loops demonstrate a coiled appearance, and a closed loop obstruction is not excluded. Surgical consultation is advised. 2. Cirrhotic liver morphology with evidence of portal hypertension including marked splenomegaly, a small volume of abdominopelvic ascites, and omental collaterals/varices. 3. Cardiomegaly with evidence of fluid overload including body wall edema and trace pleural effusions. 4. Cholelithiasis. The gallbladder is decompressed. Gallbladder wall thickening is nonspecific and likely related to cirrhosis and ascites. Correlation with clinical findings and serum bilirubin levels be required. 5. Wall thickening and edema is identified in the distal stomach suggesting gastritis. 6. There is nonspecific wall thickening of the right colon, likely limited to portal colopathy. 7. Nonobstructing left renal calculus. 8. Additional changes as above. ASSESSMENT & PLAN: ASSESSMENT/PLAN: CIRRHOSIS (HCV), DECOMPENSATED: -TB 10.3 on admission; Came with increasing abdominal distension, lower extremity edema. -S/P IV lasix x 1 day and now on hold per GI, Rifaximin, Lactulose- hold as > 3 BMS -CT scan- mild ascites- small volume -GI consulted. Discussed with GH[place]AN [place], dany inputs BACTEREMIA, E COLI SECONDARY TO UTI (E coli) Bl cx came back positive for E coli- 1/2 bottles, 2nd- negative -Sources: UTI growing E coli. Considered SBP but CT scan- small volume ascites, unable to perform it yesterday and patient is refused procedure, but doubt it is SBP as UA/Blood cx both growing E coli -IV Zosyn (Day 2)--> Change to IV Rocephin (Day 3) per C/S results -Urine c/s- E coli, Blood cx- E coli pansensitive SBO per CT scan -No hx of vomiting, has had multiple BMS . CT scan shows SBO and recommended surgical consult -Tolerating diet well -Surgery on board- appreciate inputs HX OF BLOODY STOOL/GI BLEEDING : -Had one episode of bloody stool 3 days [employer]. Hx of varices per recent EGD. Has had EGD/Colonoscopy in past No more episodes. HB stable around 8 -Protonix IV BID--> change to protonix 40 mg daily -H & H monitoring -GI consulted. Appreciate inputs HEPATIC ENCEPHALOPATHY, MILD- Resolved -Ammonia 48 on admission-trending down; Mental status- slow, but oriented x 2 on admission, now AAOX3. -Lactulose 30 g TID (on hold as > 3 BMS), Rifaximin BID -Monitor ACUTE ON CHRONIC ANEMIA -Hb down to 7.4, but no active GI bleeding. -PRBC 1 unit ordered. -Monitor with hx of GI Bleeding/Varices. THROMBOCYTOPENIA Platelets 61 on admission -No active bleeding noted -Monitor DVT prophylaxis, SCDs. RE GI bleed FULL CODE DISPOSITION To be determined PT/OT ordered Discussed with GI Vital Signs: Date Time Temp Pulse Resp B/P Pulse Ox O2 Delivery O2 Flow Rate FiO2 12/13/16 07:42 36.7 66 17 127/91 97 Room Air 12/13/16 00:00 Room Air 12/12/16 23:52 36.8 65 20 96/51 93 Room Air 12/12/16 16:44 36.2 68 115/59 93 Room Air 12/12/16 16:00 93 Room Air 12/12/16 15:05 66 104/54 12/12/16 13:50 Room Air Lab Results: Results Past 24 Hours Test 12/13/16 07:19 Range/Units White Blood Count 2.43 4.8-10.8 K/uL Red Blood Count 2.55 4.7-6.1 M/uL Hemoglobin 7.4 14.0-18.0 g/dL Hematocrit 21.8 42-52 % Mean Corpuscular Volume 85.5 80-100 fL Mean Corpuscular Hemoglobin 29.0 25-34 pg Mean Corpuscular Hemoglobin Concent 33.9 32-36 g/dl Platelet Count 59 130-400 K/uL Mean Platelet Volume 9.8 7.4-10.4 fL Neutrophils (%) (Auto) 63.8 % Lymphocytes (%) (Auto) 24.3 % Monocytes (%) (Auto) 7.4 % Eosinophils (%) (Auto) 2.5 % Basophils (%) (Auto) 0.4 % Neutrophils # (Auto) 1.55 1.4-6.5 K/uL Lymphocytes # (Auto) 0.59 1.2-3.4 K/uL Monocytes # (Auto) 0.18 0.11-0.59 K/uL Eosinophils # (Auto) 0.06 0-0.5 K/uL Basophils # (Auto) 0.01 0-0.2 K/uL RDW Standard Deviation 65.0 36.4-46.3 fL RDW Coefficient of Variation 21.1 11.5-14.5 % Immature Granulocyte % (Auto) 1.6 % Immature Granulocyte # (Auto) 0.04 0.00-0.02 K/uL Anisocytosis PRESENT Sodium Level 139 136-145 mmol/L Potassium Level 3.9 3.5-5.1 mmol/L Chloride Level 107 98-107 mmol/L Carbon Dioxide Level 23 21-32 mmol/L Anion Gap 9.0 3-11 mmol/L Blood Urea Nitrogen 11 7-18 mg/dl Creatinine 1.00 0.60-1.40 mg/dl Est Creatinine Clear Calc Drug Dose 115.0 ml/min Estimated GFR () 104.1 Estimated GFR (Non- 89.9 BUN/Creatinine Ratio 11.0 10-20 Random Glucose 84 70-99 mg/dl Calcium Level 7.1 8.5-10.1 mg/dl Total Bilirubin 12.0 0.2-1 mg/dl Aspartate Amino Transf (AST/SGOT) 48 15-37 U/L Alanine Aminotransferase (ALT/SGPT) 15 12-78 U/L Alkaline Phosphatase 132 45-117 U/L Total Protein 5.3 6.4-8.2 gm/dl Albumin 1.7 3.4-5.0 gm/dl Globulin 3.6 2.5-4.0 gm/dl Albumin/Globulin Ratio 0.5 0.9-2
[2016-12-13] MEDS: CEFTRIAXONE SOD INJ 1 GM in DEXTROSE 5% ADD-VANTAGE 50ML 50 ML IV SCH (11:11)
--- NOTE | 2016-12-13 14:00 | Surgery Progress Note ---
Surgery Progress Note Date of Service Dec 13, 2016. Subjective + bowel movement, + flatus, No nausea, No vomiting feels significant fatigue- low H/H Objective Vital Signs: Date Time Temp Pulse Resp B/P Pulse Ox O2 Delivery O2 Flow Rate FiO2 12/13/16 07:42 36.7 66 17 127/91 97 Room Air 12/13/16 00:00 Room Air 12/12/16 23:52 36.8 65 20 96/51 93 Room Air 12/12/16 16:44 36.2 68 115/59 93 Room Air 12/12/16 16:00 93 Room Air 12/12/16 15:05 66 104/54 General Appearance: no apparent distress Respiratory/Chest: no respiratory distress Abdomen: normal bowel sounds, non tender, non distended, soft Laboratory Results: Results Past 24 Hours Test 12/13/16 07:19 Range/Units White Blood Count 2.43 4.8-10.8 K/uL Red Blood Count 2.55 4.7-6.1 M/uL Hemoglobin 7.4 14.0-18.0 g/dL Hematocrit 21.8 42-52 % Mean Corpuscular Volume 85.5 80-100 fL Mean Corpuscular Hemoglobin 29.0 25-34 pg Mean Corpuscular Hemoglobin Concent 33.9 32-36 g/dl Platelet Count 59 130-400 K/uL Mean Platelet Volume 9.8 7.4-10.4 fL Neutrophils (%) (Auto) 63.8 % Lymphocytes (%) (Auto) 24.3 % Monocytes (%) (Auto) 7.4 % Eosinophils (%) (Auto) 2.5 % Basophils (%) (Auto) 0.4 % Neutrophils # (Auto) 1.55 1.4-6.5 K/uL Lymphocytes # (Auto) 0.59 1.2-3.4 K/uL Monocytes # (Auto) 0.18 0.11-0.59 K/uL Eosinophils # (Auto) 0.06 0-0.5 K/uL Basophils # (Auto) 0.01 0-0.2 K/uL RDW Standard Deviation 65.0 36.4-46.3 fL RDW Coefficient of Variation 21.1 11.5-14.5 % Immature Granulocyte % (Auto) 1.6 % Immature Granulocyte # (Auto) 0.04 0.00-0.02 K/uL Anisocytosis PRESENT Sodium Level 139 136-145 mmol/L Potassium Level 3.9 3.5-5.1 mmol/L Chloride Level 107 98-107 mmol/L Carbon Dioxide Level 23 21-32 mmol/L Anion Gap 9.0 3-11 mmol/L Blood Urea Nitrogen 11 7-18 mg/dl Creatinine 1.00 0.60-1.40 mg/dl Est Creatinine Clear Calc Drug Dose 115.0 ml/min Estimated GFR () 104.1 Estimated GFR (Non- 89.9 BUN/Creatinine Ratio 11.0 10-20 Random Glucose 84 70-99 mg/dl Calcium Level 7.1 8.5-10.1 mg/dl Total Bilirubin 12.0 0.2-1 mg/dl Aspartate Amino Transf (AST/SGOT) 48 15-37 U/L Alanine Aminotransferase (ALT/SGPT) 15 12-78 U/L Alkaline Phosphatase 132 45-117 U/L Total Protein 5.3 6.4-8.2 gm/dl Albumin 1.7 3.4-5.0 gm/dl Globulin 3.6 2.5-4.0 gm/dl Albumin/Globulin Ratio 0.5 0.9-2 Assessment & Plan 12/13/16- seems to be tolerating diet, fatigue is main complaint. on IV atbx for UTI/ bacteremia. seems to have GI function 12/12/16- affect much improved- sitting on edge of bed- will adv to full liquid diet- monitor for N/V- treating UTI/ bacteremia 12/11/16- Doubt has significant obstruction- try ice, popsicles, jello today. Has significant Hepatic insufficiency- elev TB, PT/INR, low plts anemia, ascites and probable SBP- would be extreme risk for abd operation. 12/12/16- affect much improved- sitting on edge of bed- will adv to full liquid diet- monitor for N/V- treating UTI/ bacteremia 12/11/16- Doubt has significant obstruction- try ice, popsicles, jello today. Has significant Hepatic insufficiency- elev TB, PT/INR, low plts anemia, ascites and probable SBP- would be extreme risk for abd operation.
--- NOTE | 2016-12-13 15:39 | Gastroenterology Progress Note ---
Progress Note Date of Service: Dec 13, 2016 Subjective Pt evaluation today including: conversation w/ patient, physical exam, chart review, lab review, review of studies, review of inpatient medication list Mr. Xiong is a 46 yr old male admitted with decompensated cirrhosis, UTI sepsis. He is improving: less weak, more alert, less abdominal distention. Continues with moderate edema of the lower legs. Cr improved: 1.0 today, down from 1.3. T Bili improved: 12.0 today, down from 13.9.. Review of Systems Constitutional: No fever Respiratory: No cough Cardiac: No chest pain Abdomen: + jaundice, + pain (resolving), + see HPI, No GI bleeding, No constipation, No diarrhea, No dysphagia, No nausea, No vomiting Male : No dysuria Neuro: No memory loss Heme: No abnormal bleeding/bruising Endo: + fatigue Skin: + jaundice Medications Current Inpatient Medications Medications (Trade) Dose Ordered Sig/Jaren Route Start Time Stop Time Status Last Admin Dose Admin Ioversol (Optiray 320) 100 ml UD PRN IV 12/10/16 22:30 12/14/16 22:29 Lactulose (Chronulac Syrup) 30 gm TID PO 12/10/16 23:30 01/09/17 23:29 Future Hold 12/11/16 21:31 30 GM Acetaminophen (Tylenol Tab) 325 mg Q6H PRN PO 12/10/16 22:30 01/09/17 22:29 Nitroglycerin (Nitrostat Tab) 0.4 mg UD PRN SL 12/10/16 22:30 01/09/17 22:29 Nadolol (Corgard Tab) 20 mg DAILY PO 12/11/16 09:00 01/10/17 08:59 12/13/16 07:48 20 MG Potassium Chloride (Klor-Con Tab) 20 meq DAILY PO 12/11/16 09:00 01/10/17 08:59 12/13/16 07:48 20 MEQ Rifaximin (Xifaxan Tab) 550 mg BID PO 12/11/16 09:00 01/10/17 08:59 12/13/16 07:48 550 MG Ondansetron HCl (Zofran Inj) 4 mg Q6H PRN IV 12/10/16 22:30 01/09/17 22:29 Tramadol HCl 25 mg 25 mg Q6H PRN PO 12/10/16 22:30 01/09/17 22:29 12/12/16 10:30 25 MG Lorazepam/Syringe (Ativan Inj/ Syringe) 1 ml @ 1 mls/min Q4H PRN IV 12/10/16 23:00 01/09/17 22:59 Albumin Human (Albumin 25%) 12.5 gm 0200,0300,1400,1500 IV 12/12/16 14:00 12/15/16 13:59 12/13/16 03:02 12.5 GM Oxycodone HCl 5 mg 5 mg Q6H PRN PO 12/12/16 15:00 12/26/16 14:59 12/13/16 00:24 5 MG Ceftriaxone Sodium/Dextrose (Rocephin Inj/ Dextrose Add-Eclectic 50ML) 50 ml @ 100 mls/hr Q24H IV 12/13/16 11:00 12/18/16 10:59 12/13/16 11:11 100 MLS/HR Pantoprazole Sodium (Protonix Tab) 40 mg DAILY PO 12/14/16 09:00 01/13/17 08:59 Objective Vital Signs Date Time Temp Pulse Resp B/P Pulse Ox O2 Delivery O2 Flow Rate FiO2 12/13/16 14:43 36.3 72 22 110/59 97 12/13/16 14:17 36.6 73 22 126/69 12/13/16 07:42 36.7 66 17 127/91 97 Room Air 12/13/16 00:00 Room Air 12/12/16 23:52 36.8 65 20 96/51 93 Room Air 12/12/16 16:44 36.2 68 115/59 93 Room Air 12/12/16 16:00 93 Room Air Physical Exam General Appearance: no apparent distress, + obese Respiratory/Chest: lungs clear Cardiovascular: regular rate, rhythm, no JVD, no murmur Abdomen: non tender, soft Extremities: + pedal edema, + swelling (1+ pitting lower leg edema bilaterally) Neurologic/Psych: alert, normal mood/affect, oriented x 3 Skin: + jaundice Laboratory Results Last 24 Hours Test 12/13/16 07:19 White Blood Count 2.43 K/uL Red Blood Count 2.55 M/uL Hemoglobin 7.4 g/dL Hematocrit 21.8 % Mean Corpuscular Volume 85.5 fL Mean Corpuscular Hemoglobin 29.0 pg Mean Corpuscular Hemoglobin Concent 33.9 g/dl Platelet Count 59 K/uL Mean Platelet Volume 9.8 fL Neutrophils (%) (Auto) 63.8 % Lymphocytes (%) (Auto) 24.3 % Monocytes (%) (Auto) 7.4 % Eosinophils (%) (Auto) 2.5 % Basophils (%) (Auto) 0.4 % Neutrophils # (Auto) 1.55 K/uL Lymphocytes # (Auto) 0.59 K/uL Monocytes # (Auto) 0.18 K/uL Eosinophils # (Auto) 0.06 K/uL Basophils # (Auto) 0.01 K/uL RDW Standard Deviation 65.0 fL RDW Coefficient of Variation 21.1 % Immature Granulocyte % (Auto) 1.6 % Immature Granulocyte # (Auto) 0.04 K/uL Anisocytosis PRESENT Sodium Level 139 mmol/L Potassium Level 3.9 mmol/L Chloride Level 107 mmol/L Carbon Dioxide Level 23 mmol/L Anion Gap 9.0 mmol/L Blood Urea Nitrogen 11 mg/dl Creatinine 1.00 mg/dl Est Creatinine Clear Calc Drug Dose 115.0 ml/min Estimated GFR () 104.1 Estimated GFR (Non- 89.9 BUN/Creatinine Ratio 11.0 Random Glucose 84 mg/dl Calcium Level 7.1 mg/dl Total Bilirubin 12.0 mg/dl Aspartate Amino Transf (AST/SGOT) 48 U/L Alanine Aminotransferase (ALT/SGPT) 15 U/L Alkaline Phosphatase 132 U/L Total Protein 5.3 gm/dl Albumin 1.7 gm/dl Globulin 3.6 gm/dl Albumin/Globulin Ratio 0.5 Assessment and Plan Mr. Xiong is a 46 yr old male with HepC/ETOH cirrhosis. Plan: 1. Continue treatment of urosepsis by primary care. 2. 2 gram sodium diet. 3. Complete 3 days of Albumin. 4. No further GI testing/procedures recommended at this time. 5. Restart OP diuretics: Lasix 20mg, Aldactone 25mg. Attg addendum: I interveiwed and examined pt, reviewed chart and labs. Pt appears better - denies abd pain, steph PO, + BM. Abd is soft nad NT. Creat is 1.0. RECS: D/c albumin tomorrow. OK to resume outpt doses of diuretics. Will resume Lactulose at lower dose. Will sign off - please reconsult as needed.
[2016-12-13] MEDS: LACTULOSE SYRUP 10 GM/15 ML BTL 473 ML PO SCH (20:50)
[2016-12-13] MEDS ORDERED: MoRPHine SULFATE 2 MG/ML CARP IV PRN (22:45)
[2016-12-13] MEDS ORDERED: MoRPHine SULFATE 4 MG/ML 1 ML CARP\\VIAL IV PRN (22:45)
[2016-12-13 23:47] LABS: HEPATITIS C VIRAL RNA BY PCR <15 NOT DETECTED IU/ML (<15); HEPATITIS C VIRAL RNA(LOG) PCR <1.18 NOT DETECTED LOG IU/ML (<1.18)
[2016-12-14] VITALS (9 sets, daily range): BP systolic 105–124; BP diastolic 57–72; PULSE 69–76; TEMP 36.5–36.9; O2SAT 96–99
[2016-12-14] MEDS: ALBUMIN HUMAN 25% 12.5 GM/50 ML VIAL IV SCH ×4 (01:32→16:10)
[2016-12-14 07:44] LABS: HEMATOCRIT 22.3 % (42-52); MEAN CELL VOLUME 85.8 fL (80-100); MEAN CORPUSCULAR HEMOGLOBIN 29.6 pg (25-34); MEAN CORPUSCULAR HGB CONC 34.5 g/dl (32-36); MEAN PLATELET VOLUME 9.7 fL (7.4-10.4); PLATELET COUNT 44 K/uL (130-400); WHITE BLOOD COUNT 1.75 K/uL (4.8-10.8)
[2016-12-14 07:46] LABS: CALCIUM 7.2 mg/dl (8.5-10.1); CREATININE 0.92 mg/dl (0.60-1.40); POTASSIUM 4.4 mmol/L (3.5-5.1)
[2016-12-14 07:52] LABS: ALB/GLOB RATIO 0.5 (0.9-2)
[2016-12-14 08:50] LABS: ANISOCYTOSIS PRESENT; BASO % 2.3 %; BASO ABS # 0.04 K/uL (0-0.2); COMPLETE YES; EOS % 1.1 %; IG% 3.4 %; LYMPH % 30.3 %; LYMPH ABS # 0.53 K/uL (1.2-3.4); NEUT % 54.9 %
[2016-12-14] MEDS: NADOLOL 40 MG TAB PO SCH (09:02)
[2016-12-14] MEDS: LACTULOSE SYRUP 10 GM/15 ML BTL 473 ML PO SCH ×2 (09:02→21:52)
[2016-12-14] MEDS: POTASSIUM CHLORIDE 20 MEQ TABCR PO SCH (09:02)
[2016-12-14] MEDS: PANTOprazole SOD 40 MG TAB PO SCH (09:02)
[2016-12-14] MEDS: RIFAXIMIN TAB 550 MG TAB PO SCH ×2 (09:03→21:49)
--- NOTE | 2016-12-14 09:51 | Progress Note ---
Internal Med Progress Note Date of Service: Dec 14, 2016. Provider Documentation: SUBJECTIVE: Patient is feeling better today C/o abdominal distension, worsening x 2 weeks, abdominal pain, LE edema, weight gain. Nausea, no vomiting, no diarrhea. BMS - Multiple secondary to lactulose. Afebrile, no abdominal pain. Tolerating diet well. OBJECTIVE: Vital Signs-as noted below Exam: General-More awake, AAOX3, no distress Eyes-Icterus Neck-Supple, NO JVD Lungs-AEBE decreased, coarse bs +, no wheezing, rhonchi Heart-S1, S2 normal, no murmurs Abdomen-Soft, abdominal distension +, BS present, Non tender Extremities-Edema b/l up to below knee Neuro-AAOX3, more awake, no focal deficits Lab data as noted below. CT ABDOMEN/PELVIS: IMPRESSION: 1. Findings are consistent with a small bowel obstruction. At least one transition point is identified in the right mid abdomen. Several of the small bowel loops demonstrate a coiled appearance, and a closed loop obstruction is not excluded. Surgical consultation is advised. 2. Cirrhotic liver morphology with evidence of portal hypertension including marked splenomegaly, a small volume of abdominopelvic ascites, and omental collaterals/varices. 3. Cardiomegaly with evidence of fluid overload including body wall edema and trace pleural effusions. 4. Cholelithiasis. The gallbladder is decompressed. Gallbladder wall thickening is nonspecific and likely related to cirrhosis and ascites. Correlation with clinical findings and serum bilirubin levels be required. 5. Wall thickening and edema is identified in the distal stomach suggesting gastritis. 6. There is nonspecific wall thickening of the right colon, likely limited to portal colopathy. 7. Nonobstructing left renal calculus. 8. Additional changes as above. ASSESSMENT & PLAN: ASSESSMENT/PLAN: PANCYTOPENIA Possibly secondary to bacteremia/Antibiotics in setting of cirrhosis -No signs of active bleeding -Monitor CIRRHOSIS (HCV), DECOMPENSATED: -TB 10.3 on admission; Came with increasing abdominal distension, lower extremity edema. -S/P IV lasix x 1 day and now on hold per GI, Rifaximin, Lactulose 15 g TID -CT scan- mild ascites- small volume -GI consulted. Discussed with dany Woods BACTEREMIA, E COLI SECONDARY TO UTI :(E coli) Bl cx came back positive for E coli- 1/2 bottles, 2nd- negative -Sources: UTI growing E coli. Considered SBP but CT scan- small volume ascites, unable to perform it yesterday and patient is refused procedure, but doubt it is SBP as UA/Blood cx both growing E coli -IV Zosyn (Day 2)--> ChangeD to IV Rocephin (Day 02/15) per C/S results -Urine c/s- E coli, Blood cx- E coli pansensitive; Repeat Blood culture - pending SBO per CT scan -No hx of vomiting, has had multiple BMS . CT scan shows SBO and recommended surgical consult -Tolerating diet well -Surgery on board- appreciate inputs HX OF BLOODY STOOL/GI BLEEDING : -Had one episode of bloody stool 3 days [employer]. Hx of varices per recent EGD. Has had EGD/Colonoscopy in past No more episodes. HB stable around 8 -Protonix IV BID--> changed to protonix 40 mg daily -H & H monitoring -GI consulted. Appreciate inputs HEPATIC ENCEPHALOPATHY, MILD- Resolved -Ammonia 48 on admission-trending down; Mental status- slow, but oriented x 2 on admission, AAOX3. -Lactulose 15 g BID, Rifaximin BID -Monitor ACUTE ON CHRONIC ANEMIA -Hb down to 7.4, but no active GI bleeding. -S/P PRBC 1 unit on 12/13/16 and today 1 unit to be transfused today -Monitor with hx of GI Bleeding/Varices. THROMBOCYTOPENIA Platelets 61 on admission -No active bleeding noted -Monitor DVT prophylaxis, SCDs. RE GI bleed FULL CODE DISPOSITION To be determined PT/OT ordered Discussed with GI Vital Signs: Date Time Temp Pulse Resp B/P Pulse Ox O2 Delivery O2 Flow Rate FiO2 12/14/16 07:53 99 Room Air 12/14/16 07:52 36.9 69 16 124/70 99 Room Air 12/14/16 00:00 Room Air 12/13/16 23:14 36.6 78 16 133/75 100 Room Air 12/13/16 20:43 36.7 70 18 106/78 97 Room Air 12/13/16 19:39 36.8 74 20 120/71 96 Room Air 12/13/16 16:00 97 Room Air 12/13/16 15:50 36.7 71 19 124/74 12/13/16 15:20 36.8 71 20 117/70 2/9/17 14:50 36.8 68 22 107/59 12/13/16 14:43 36.3 72 22 110/59 97 12/13/16 14:17 36.6 73 22 126/69 Lab Results: Results Past 24 Hours Test 12/14/16 06:58 Range/Units White Blood Count 1.75 4.8-10.8 K/uL Red Blood Count 2.60 4.7-6.1 M/uL Hemoglobin 7.7 14.0-18.0 g/dL Hematocrit 22.3 42-52 % Mean Corpuscular Volume 85.8 80-100 fL Mean Corpuscular Hemoglobin 29.6 25-34 pg Mean Corpuscular Hemoglobin Concent 34.5 32-36 g/dl Platelet Count 44 130-400 K/uL Mean Platelet Volume 9.7 7.4-10.4 fL Neutrophils (%) (Auto) 54.9 % Lymphocytes (%) (Auto) 30.3 % Monocytes (%) (Auto) 8.0 % Eosinophils (%) (Auto) 1.1 % Basophils (%) (Auto) 2.3 % Neutrophils # (Auto) 0.96 1.4-6.5 K/uL Lymphocytes # (Auto) 0.53 1.2-3.4 K/uL Monocytes # (Auto) 0.14 0.11-0.59 K/uL Eosinophils # (Auto) 0.02 0-0.5 K/uL Basophils # (Auto) 0.04 0-0.2 K/uL RDW Standard Deviation 62.8 36.4-46.3 fL RDW Coefficient of Variation 20.3 11.5-14.5 % Immature Granulocyte % (Auto) 3.4 % Immature Granulocyte # (Auto) 0.06 0.00-0.02 K/uL Anisocytosis PRESENT Sodium Level 140 136-145 mmol/L Potassium Level 4.4 3.5-5.1 mmol/L Chloride Level 110 98-107 mmol/L Carbon Dioxide Level 21 21-32 mmol/L Anion Gap 9.0 3-11 mmol/L Blood Urea Nitrogen 8 7-18 mg/dl Creatinine 0.92 0.60-1.40 mg/dl Est Creatinine Clear Calc Drug Dose 125.0 ml/min Estimated GFR () 115.2 Estimated GFR (Non- 99.4 BUN/Creatinine Ratio 9.0 10-20 Random Glucose 80 70-99 mg/dl Calcium Level 7.2 8.5-10.1 mg/dl Total Bilirubin 9.6 0.2-1 mg/dl Aspartate Amino Transf (AST/SGOT) 48 15-37 U/L Alanine Aminotransferase (ALT/SGPT) 16 12-78 U/L Alkaline Phosphatase 138 45-117 U/L Total Protein 5.4 6.4-8.2 gm/dl Albumin 1.9 3.4-5.0 gm/dl Globulin 3.5 2.5-4.0 gm/dl Albumin/Globulin Ratio 0.5 0.9-2 Chemistry Specimen Hemolysis Microbiology Results 12/14/16 Blood Culture, Maikel Batch Pending 12/14/16 Blood Culture, Maikel Batch Pending
[2016-12-14] MEDS: CEFTRIAXONE SOD INJ 1 GM in DEXTROSE 5% ADD-VANTAGE 50ML 50 ML IV SCH (12:03)
--- NOTE | 2016-12-14 13:29 | Surgery Progress Note ---
Surgery Progress Note Date of Service Dec 14, 2016. Subjective Receiving transfusions Objective Vital Signs: Date Time Temp Pulse Resp B/P Pulse Ox O2 Delivery O2 Flow Rate FiO2 12/14/16 10:24 Room Air 12/14/16 07:53 99 Room Air 12/14/16 07:52 36.9 69 16 124/70 99 Room Air 12/14/16 00:00 Room Air 12/13/16 23:14 36.6 78 16 133/75 100 Room Air 12/13/16 20:43 36.7 70 18 106/78 97 Room Air 12/13/16 19:39 36.8 74 20 120/71 96 Room Air 12/13/16 16:00 97 Room Air 12/13/16 15:50 36.7 71 19 124/74 12/13/16 15:20 36.8 71 20 117/70 12/13/16 14:50 36.8 68 22 107/59 12/13/16 14:43 36.3 72 22 110/59 97 12/13/16 14:17 36.6 73 22 126/69 Laboratory Results: Results Past 24 Hours Test 12/14/16 06:58 Range/Units White Blood Count 1.75 4.8-10.8 K/uL Red Blood Count 2.60 4.7-6.1 M/uL Hemoglobin 7.7 14.0-18.0 g/dL Hematocrit 22.3 42-52 % Mean Corpuscular Volume 85.8 80-100 fL Mean Corpuscular Hemoglobin 29.6 25-34 pg Mean Corpuscular Hemoglobin Concent 34.5 32-36 g/dl Platelet Count 44 130-400 K/uL Mean Platelet Volume 9.7 7.4-10.4 fL Neutrophils (%) (Auto) 54.9 % Lymphocytes (%) (Auto) 30.3 % Monocytes (%) (Auto) 8.0 % Eosinophils (%) (Auto) 1.1 % Basophils (%) (Auto) 2.3 % Neutrophils # (Auto) 0.96 1.4-6.5 K/uL Lymphocytes # (Auto) 0.53 1.2-3.4 K/uL Monocytes # (Auto) 0.14 0.11-0.59 K/uL Eosinophils # (Auto) 0.02 0-0.5 K/uL Basophils # (Auto) 0.04 0-0.2 K/uL RDW Standard Deviation 62.8 36.4-46.3 fL RDW Coefficient of Variation 20.3 11.5-14.5 % Immature Granulocyte % (Auto) 3.4 % Immature Granulocyte # (Auto) 0.06 0.00-0.02 K/uL Anisocytosis PRESENT Sodium Level 140 136-145 mmol/L Potassium Level 4.4 3.5-5.1 mmol/L Chloride Level 110 98-107 mmol/L Carbon Dioxide Level 21 21-32 mmol/L Anion Gap 9.0 3-11 mmol/L Blood Urea Nitrogen 8 7-18 mg/dl Creatinine 0.92 0.60-1.40 mg/dl Est Creatinine Clear Calc Drug Dose 125.0 ml/min Estimated GFR () 115.2 Estimated GFR (Non- 99.4 BUN/Creatinine Ratio 9.0 10-20 Random Glucose 80 70-99 mg/dl Calcium Level 7.2 8.5-10.1 mg/dl Total Bilirubin 9.6 0.2-1 mg/dl Aspartate Amino Transf (AST/SGOT) 48 15-37 U/L Alanine Aminotransferase (ALT/SGPT) 16 12-78 U/L Alkaline Phosphatase 138 45-117 U/L Total Protein 5.4 6.4-8.2 gm/dl Albumin 1.9 3.4-5.0 gm/dl Globulin 3.5 2.5-4.0 gm/dl Albumin/Globulin Ratio 0.5 0.9-2 Chemistry Specimen Hemolysis Microbiology Results 12/14/16 Blood Culture, Maikel Batch Pending 12/14/16 Blood Culture, Maikel Batch Pending Assessment & Plan 12/14/16- some improvement with blood transfusion. If pt required surgery, would need to be transferred to tertiary care center. blood product requirements would be extensive.Dr Decker covering over weekend 12/13/16- seems to be tolerating diet, fatigue is main complaint. on IV atbx for UTI/ bacteremia. seems to have GI function 12/12/16- affect much improved- sitting on edge of bed- will adv to full liquid diet- monitor for N/V- treating UTI/ bacteremia 12/11/16- Doubt has significant obstruction- try ice, popsicles, jello today. Has significant Hepatic insufficiency- elev TB, PT/INR, low plts anemia, ascites and probable SBP- would be extreme risk for abd operation. 12/13/16- seems to be tolerating diet, fatigue is main complaint. on IV atbx for UTI/ bacteremia. seems to have GI function 12/12/16- affect much improved- sitting on edge of bed- will adv to full liquid diet- monitor for N/V- treating UTI/ bacteremia 12/11/16- Doubt has significant obstruction- try ice, popsicles, jello today. Has significant Hepatic insufficiency- elev TB, PT/INR, low plts anemia, ascites and probable SBP- would be extreme risk for abd operation.
[2016-12-14] MEDS: FUROSEMIDE 40 MG TAB PO SCH (14:31)
[2016-12-14] MEDS: OXYCODONE HCL IR 5 MG TAB (IMMEDIATE RELEASE) PO PRN (16:10)
[2016-12-14] MEDS: SPIRONOLACTONE 100 MG TAB PO SCH (21:49)
[2016-12-15] VITALS (8 sets, daily range): BP systolic 96–145; BP diastolic 48–74; PULSE 67–72; TEMP 36.2–36.9; O2SAT 96–100
[2016-12-15] MEDS: ALBUMIN HUMAN 25% 12.5 GM/50 ML VIAL IV SCH ×2 (01:40→02:40)
[2016-12-15 08:09] LABS: HEMATOCRIT 24.1 % (42-52); MEAN CORPUSCULAR HEMOGLOBIN 29.6 pg (25-34); RED BLOOD COUNT 2.77 M/uL (4.7-6.1); WHITE BLOOD COUNT 1.65 K/uL (4.8-10.8)
[2016-12-15 08:14] LABS: MEAN PLATELET VOLUME 10.1 fL (7.4-10.4); PLATELET COUNT 40 K/uL (130-400)
[2016-12-15 08:32] LABS: BUN/CREATININE RATIO 8.7 (10-20); CALCIUM 7.5 mg/dl (8.5-10.1); CREATININE 0.82 mg/dl (0.60-1.40); POTASSIUM 4.7 mmol/L (3.5-5.1)
[2016-12-15 08:37] LABS: ANISOCYTOSIS PRESENT; COMPLETE YES; EOS % 1.2 %; IG% 1.8 %; LYMPH % 26.1 %; LYMPH ABS # 0.43 K/uL (1.2-3.4); MONO % 5.5 %; NEUT % 65.4 %
[2016-12-15] MEDS: SPIRONOLACTONE 100 MG TAB PO SCH (08:55)
[2016-12-15] MEDS: LACTULOSE SYRUP 10 GM/15 ML BTL 473 ML PO SCH ×2 (08:56→21:00)
[2016-12-15] MEDS: NADOLOL 40 MG TAB PO SCH (08:57)
[2016-12-15] MEDS: POTASSIUM CHLORIDE 20 MEQ TABCR PO SCH (08:58)
[2016-12-15] MEDS: PANTOprazole SOD 40 MG TAB PO SCH (08:59)
[2016-12-15] MEDS: RIFAXIMIN TAB 550 MG TAB PO SCH ×2 (08:59→21:57)
[2016-12-15] MEDS: FUROSEMIDE 40 MG TAB PO SCH (09:21)
--- NOTE | 2016-12-15 09:22 | Progress Note ---
Internal Med Progress Note Date of Service: Dec 15, 2016. Provider Documentation: SUBJECTIVE: Patient is feeling better but c/o fatigue + Came in for abdominal distension, worsening x 2 weeks, abdominal pain, LE edema , weight gain. No Nausea, no vomiting, no diarrhea. BMS - Multiple secondary to lactulose. Afebrile, no abdominal pain. Tolerating diet well. OBJECTIVE: Vital Signs-as noted below Exam: General-More awake, AAOX3, no distress Eyes-Icterus Neck-Supple, NO JVD Lungs-AEBE decreased, coarse bs +, no wheezing, rhonchi Heart-S1, S2 normal, no murmurs Abdomen-Soft, abdominal distension +, BS present, Non tender Extremities-Edema b/l up to below knee Neuro-AAOX3, more awake, no focal deficits Lab data as noted below. CT ABDOMEN/PELVIS: IMPRESSION: 1. Findings are consistent with a small bowel obstruction. At least one transition point is identified in the right mid abdomen. Several of the small bowel loops demonstrate a coiled appearance, and a closed loop obstruction is not excluded. Surgical consultation is advised. 2. Cirrhotic liver morphology with evidence of portal hypertension including marked splenomegaly, a small volume of abdominopelvic ascites, and omental collaterals/varices. 3. Cardiomegaly with evidence of fluid overload including body wall edema and trace pleural effusions. 4. Cholelithiasis. The gallbladder is decompressed. Gallbladder wall thickening is nonspecific and likely related to cirrhosis and ascites. Correlation with clinical findings and serum bilirubin levels be required. 5. Wall thickening and edema is identified in the distal stomach suggesting gastritis. 6. There is nonspecific wall thickening of the right colon, likely limited to portal colopathy. 7. Nonobstructing left renal calculus. 8. Additional changes as above. ASSESSMENT & PLAN: ASSESSMENT/PLAN: PANCYTOPENIA : Slightly worse Possibly secondary to bacteremia/Antibiotics in setting of cirrhosis. ANC around 1600 -No signs of active bleeding -Received 1 unit PRBC on 12/11/16 and 1 unit on 12/14/16 -Monitor closely CIRRHOSIS (HCV), DECOMPENSATED: -TB 10.3 on admission; Came with increasing abdominal distension, lower extremity edema. -S/P IV lasix x 1 day and now on hold per GI, Rifaximin, Lactulose 15 g TID -CT scan- mild ascites- small volume -GI consulted. Appreciate inputs BACTEREMIA, E COLI SECONDARY TO UTI :(E coli) Bl cx came back positive for E coli- 1/2 bottles, 2nd- negative -Sources: UTI growing E coli. Considered SBP but CT scan- small volume ascites, unable to perform it yesterday and patient is refused procedure, but doubt it is SBP as UA/Blood cx both growing E coli -IV Zosyn (Day 2)--> ChangeD to IV Rocephin (Day 03/17) per C/S results -Urine c/s- E coli, Blood cx- E coli pansensitive; Repeat Blood culture - pending SBO per CT scan -No hx of vomiting, has had multiple BMS . 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 Hx of varices per recent EGD. Has had EGD/Colonoscopy in past No more episodes. HB stable around 8 -Protonix IV BID--> changed to protonix 40 mg daily -H & H monitoring -GI consulted. Appreciate inputs HEPATIC ENCEPHALOPATHY, MILD- Resolved -Ammonia 48 on admission-trending down; Mental status- slow, but oriented x 2 on admission, AAOX3. -Lactulose 15 g BID, Rifaximin BID -Monitor ACUTE ON CHRONIC ANEMIA -Hb down to 7.4, but no active GI bleeding. -S/P PRBC 1 unit on 12/13/16 and today 1 unit to be transfused today -Monitor with hx of GI Bleeding/Varices. THROMBOCYTOPENIA Platelets 61 on admission -No active bleeding noted -Monitor DVT prophylaxis, SCDs. RE GI bleed FULL CODE DISPOSITION To be determined PT/OT ordered Discussed with GI Vital Signs: Date Time Temp Pulse Resp B/P Pulse Ox O2 Delivery O2 Flow Rate FiO2 12/15/16 08:00 99 Room Air 12/15/16 07:17 36.4 67 18 121/72 99 Room Air 12/15/16 03:15 36.5 70 18 117/65 97 12/15/16 02:45 36.9 68 18 117/69 96 Room Air 12/15/16 02:15 36.7 69 18 145/74 97 12/15/16 01:45 36.6 69 18 96/48 96 Room Air 12/15/16 00:00 Room Air 12/14/16 23:30 36.5 76 16 110/64 98 Room Air 12/14/16 21:30 36.7 76 16 118/72 98 12/14/16 21:00 36.9 75 16 110/61 98 12/14/16 20:30 36.8 69 17 115/70 98 12/14/16 19:51 36.8 69 18 116/69 96 12/14/16 16:10 98 Room Air 12/14/16 15:37 36.7 73 24 105/57 98 Room Air 12/14/16 10:24 Room Air Lab Results: Results Past 24 Hours Test 12/15/16 07:42 Range/Units White Blood Count 1.65 4.8-10.8 K/uL Red Blood Count 2.77 4.7-6.1 M/uL Hemoglobin 8.2 14.0-18.0 g/dL Hematocrit 24.1 42-52 % Mean Corpuscular Volume 87.0 80-100 fL Mean Corpuscular Hemoglobin 29.6 25-34 pg Mean Corpuscular Hemoglobin Concent 34.0 32-36 g/dl Platelet Count 40 130-400 K/uL Mean Platelet Volume 10.1 7.4-10.4 fL Neutrophils (%) (Auto) 65.4 % Lymphocytes (%) (Auto) 26.1 % Monocytes (%) (Auto) 5.5 % Eosinophils (%) (Auto) 1.2 % Basophils (%) (Auto) 0.0 % Neutrophils # (Auto) 1.08 1.4-6.5 K/uL Lymphocytes # (Auto) 0.43 1.2-3.4 K/uL Monocytes # (Auto) 0.09 0.11-0.59 K/uL Eosinophils # (Auto) 0.02 0-0.5 K/uL Basophils # (Auto) 0.00 0-0.2 K/uL RDW Standard Deviation 62.5 36.4-46.3 fL RDW Coefficient of Variation 20.4 11.5-14.5 % Immature Granulocyte % (Auto) 1.8 % Immature Granulocyte # (Auto) 0.03 0.00-0.02 K/uL Anisocytosis PRESENT Sodium Level 141 136-145 mmol/L Potassium Level 4.7 3.5-5.1 mmol/L Chloride Level 111 98-107 mmol/L Carbon Dioxide Level 22 21-32 mmol/L Anion Gap 8.0 3-11 mmol/L Blood Urea Nitrogen 7 7-18 mg/dl Creatinine 0.82 0.60-1.40 mg/dl Est Creatinine Clear Calc Drug Dose 140.3 ml/min Estimated GFR () 122.9 Estimated GFR (Non- 106.0 BUN/Creatinine Ratio 8.7 10-20 Random Glucose 94 70-99 mg/dl Calcium Level 7.5 8.5-10.1 mg/dl Microbiology Results 12/14/16 Blood Culture, Received Pending 12/14/16 Blood Culture, Received Pending
[2016-12-15] MEDS: CEFTRIAXONE SOD INJ 1 GM in DEXTROSE 5% ADD-VANTAGE 50ML 50 ML IV SCH (11:20)
[2016-12-16 06:04] LABS: HEMATOCRIT 25.7 % (42-52); MEAN CELL VOLUME 88.3 fL (80-100); MEAN CORPUSCULAR HEMOGLOBIN 29.6 pg (25-34); MEAN CORPUSCULAR HGB CONC 33.5 g/dl (32-36); RED BLOOD COUNT 2.91 M/uL (4.7-6.1); WHITE BLOOD COUNT 3.08 K/uL (4.8-10.8)
[2016-12-16 06:34] LABS: BASO % 0.3 %; BASO ABS # 0.01 K/uL (0-0.2); COMPLETE YES; EOS % 1.9 %; IG% 1.6 %; LYMPH % 21.4 %; LYMPH ABS # 0.66 K/uL (1.2-3.4); MONO % 5.8 %; PLATELET COUNT 58 K/uL (130-400)
[2016-12-16] MEDS: LACTULOSE SYRUP 10 GM/15 ML BTL 473 ML PO SCH (07:33)
[2016-12-16] MEDS: SPIRONOLACTONE 100 MG TAB PO SCH (07:33)
[2016-12-16] MEDS: NADOLOL 40 MG TAB PO SCH (07:34)
[2016-12-16] MEDS: PANTOprazole SOD 40 MG TAB PO SCH (07:36)
[2016-12-16] MEDS: RIFAXIMIN TAB 550 MG TAB PO SCH (07:36)
[2016-12-16 07:40] VITALS: O2SAT 99
[2016-12-16 08:27] VITALS: BP 108/63; PULSE 70; TEMP 36.8; O2SAT 96
[2016-12-16] MEDS: FUROSEMIDE 40 MG TAB PO SCH (09:00)
[2016-12-16] MEDS: POTASSIUM CHLORIDE 20 MEQ TABCR PO SCH (09:00)
[2016-12-16 09:25] VITALS: BP 108/63; PULSE 70; TEMP 36.8; O2SAT 96
--- NOTE | 2016-12-16 09:42 | Progress Note ---
Internal Med Progress Note Date of Service: Dec 16, 2016. Provider Documentation: SUBJECTIVE: Patient is doing much better today. Came in for abdominal distension, worsening x 2 weeks, abdominal pain, LE edema , weight gain. No Nausea, no vomiting, no diarrhea. BMS - Multiple secondary to lactulose. Afebrile, no abdominal pain. Tolerating diet well. OBJECTIVE: Vital Signs-as noted below Exam: General-More awake, AAOX3, no distress Eyes-Icterus Neck-Supple, NO JVD Lungs-AEBE decreased, coarse bs +, no wheezing, rhonchi Heart-S1, S2 normal, no murmurs Abdomen-Soft, abdominal distension +, BS present, Non tender Extremities-Edema b/l up to below knee Neuro-AAOX3, more awake, no focal deficits Lab data as noted below. CT ABDOMEN/PELVIS: IMPRESSION: 1. Findings are consistent with a small bowel obstruction. At least one transition point is identified in the right mid abdomen. Several of the small bowel loops demonstrate a coiled appearance, and a closed loop obstruction is not excluded. Surgical consultation is advised. 2. Cirrhotic liver morphology with evidence of portal hypertension including marked splenomegaly, a small volume of abdominopelvic ascites, and omental collaterals/varices. 3. Cardiomegaly with evidence of fluid overload including body wall edema and trace pleural effusions. 4. Cholelithiasis. The gallbladder is decompressed. Gallbladder wall thickening is nonspecific and likely related to cirrhosis and ascites. Correlation with clinical findings and serum bilirubin levels be required. 5. Wall thickening and edema is identified in the distal stomach suggesting gastritis. 6. There is nonspecific wall thickening of the right colon, likely limited to portal colopathy. 7. Nonobstructing left renal calculus. 8. Additional changes as above. ASSESSMENT & PLAN: ASSESSMENT/PLAN: PANCYTOPENIA : Improved Possibly secondary to bacteremia/Antibiotics in setting of cirrhosis. ANC around 1600 -No signs of active bleeding -Received 1 unit PRBC on 12/11/16 and 1 unit on 12/14/16 (Total 2 units since admission) -Monitor closely outpatient CIRRHOSIS (HCV), DECOMPENSATED: -TB 10.3 on admission; Came with increasing abdominal distension, lower extremity edema. -S/P IV lasix x 1 day - Restarted Lasix 40 mg and Aldactone at increased dose of 100 mg , continue with Rifaximin, Lactulose 15 g TID -CT scan- mild ascites- small volume-- Paracentesis attempted but unable to do due to lack of staffing and later patient refused (No indication any ways due to small volume ascites and no concerns for SBP) -GI consulted. Appreciate inputs BACTEREMIA, E COLI SECONDARY TO UTI :(E coli) Bl cultures came back positive for E coli - 1/2 bottles, 2nd - negative -Sources: UTI growing E coli. Considered SBP but CT scan- small volume ascites, unable to perform it yesterday and patient is refused procedure, but doubt it is SBP as UA/Blood cx both growing E coli -IV Zosyn (Day 2) --> Changed to IV Rocephin (Day 14) per C/S results--> Change to Ciprofloxacin BID for 10 more days to complete course of 14 days of antibiotics -Urine c/s- E coli, Blood cx- E coli pansensitive; Repeat Blood culture - negative SBO per CT scan -No hx of vomiting, has had multiple BMS . CT scan shows SBO and recommended surgical consult -Tolerating diet well -Surgery on board- appreciate inputs-- no surgical intervention recommended. 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 Hx of varices per recent EGD. Has had EGD/Colonoscopy in past No more episodes. HB stable around 8 -Protonix IV BID--> changed to protonix 40 mg daily -H & H monitoring -GI consulted. Appreciate inputs HEPATIC ENCEPHALOPATHY, MILD- Resolved -Ammonia 48 on admission-trending down; Mental status- slow, but oriented x 2 on admission, AAOX3. -Lactulose 15 g BID, Rifaximin BID ACUTE ON CHRONIC ANEMIA -Hb down to 7.4, but no active GI bleeding. HB 8.6 today -S/P PRBC 1 unit on 12/13/16 and today 1 unit to be transfused on 12/14/16 -Monitor with hx of GI Bleeding/Varices outpatient THROMBOCYTOPENIA secondary to Cirrhosis Platelets 61 on admission -No active bleeding noted -Monitor DVT prophylaxis, SCDs. RE GI bleed FULL CODE DISPOSITION OKay to discharge home today PT/OT - recommended home discharge Follow up with PCP in 1 week Follow up with GI - to establish care Vital Signs: Date Time Temp Pulse Resp B/P Pulse Ox O2 Delivery O2 Flow Rate FiO2 12/16/16 09:25 36.8 70 16 96 Room Air 12/16/16 08:27 36.8 70 16 108/63 96 Room Air 12/16/16 07:40 99 Room Air 12/16/16 00:00 Room Air 12/15/16 23:02 36.6 72 18 133/69 97 Room Air 12/15/16 15:53 Room Air 12/15/16 14:40 36.2 72 18 133/71 100 Room Air Lab Results: Results Past 24 Hours Test 12/16/16 05:19 Range/Units White Blood Count 3.08 4.8-10.8 K/uL Red Blood Count 2.91 4.7-6.1 M/uL Hemoglobin 8.6 14.0-18.0 g/dL Hematocrit 25.7 42-52 % Mean Corpuscular Volume 88.3 80-100 fL Mean Corpuscular Hemoglobin 29.6 25-34 pg Mean Corpuscular Hemoglobin Concent 33.5 32-36 g/dl Platelet Count 58 130-400 K/uL Mean Platelet Volume 10.0 7.4-10.4 fL Neutrophils (%) (Auto) 69.0 % Lymphocytes (%) (Auto) 21.4 % Monocytes (%) (Auto) 5.8 % Eosinophils (%) (Auto) 1.9 % Basophils (%) (Auto) 0.3 % Neutrophils # (Auto) 2.12 1.4-6.5 K/uL Lymphocytes # (Auto) 0.66 1.2-3.4 K/uL Monocytes # (Auto) 0.18 0.11-0.59 K/uL Eosinophils # (Auto) 0.06 0-0.5 K/uL Basophils # (Auto) 0.01 0-0.2 K/uL RDW Standard Deviation 64.7 36.4-46.3 fL RDW Coefficient of Variation 20.7 11.5-14.5 % Immature Granulocyte % (Auto) 1.6 % Immature Granulocyte # (Auto) 0.05 0.00-0.02 K/uL
[2016-12-16] MEDS ORDERED: SPIR25TA PO (09:44)
--- NOTE | 2016-12-16 09:47 | Discharge Instructions ---
Discharge Instructions Admission Reason for Admission: Decompensation Of Cirrhosis Of Liver Discharge Discharge Diagnosis / Problem: 1. Bacteremia secondary to UTI Discharge Goals Goal(s): Improve disease control, Diagnostic testing, Therapeutic intervention , Prevent Disease Progression Activity Recommendations Activity Limitations: resume your previous activity . Instructions / Follow-Up Instructions / Follow-Up MEDICATION CHANGES: 1. Increase spironolactone to 50 mg daily 2. Continue with lasix 20 mg twice a day 3. New medication: Ciprofloxacin 500 mg PO BID for 10 more days to complete course of 14 days of antibiotics for Bacteremia/UTI DIET: 2 GRAM SODIUM, Fluid restriction 1800 cc FOLLOW UP: 1. Dr Lagunas in 1 week. We will call you for appt date/time 2. Follow up with GI - to establish care with GI 3. Follow up with ID as scheduled for hepatitis C Current Hospital Diet Patient's current hospital diet: Low Sodium Diet (2gm Na), AHA Diet (Heart Healthy) Discharge Diet Recommended Diet: AHA Diet (Heart Healthy), Low Sodium Diet (2gm Na) Fluid Restriction: 1800 ml (7 cups) Pending Studies Studies pending at discharge: no Medical Emergencies . Who to Call and When: Medical Emergencies: If at any time you feel your situation is an emergency, please call 911 immediately. . Non-Emergent Contact Non-Emergency issues call your: Primary Care Provider . . "Provider Documentation" section prepared by Mimi Wise. VTE Core Measure Inpt VTE Proph given/why not?: T.E.D. Stockings, SCD's, Contraindicated (re: thrombocytopenia)
--- NOTE | 2016-12-16 09:51 | Discharge Summary ---
Discharge Summary Admission Date: Dec 10, 2016 at 21:48 Discharge Date: Dec 16, 2016 Principal Diagnosis: 1. Bacteremia secondary to UTI (E coli) 2. Cirrhosis secondary to HCV 3. Pancytopenia secondary to above 4. SBO per CT scan 5. Hepatic encephalopathy, mild 6. Acute on chronic anemia (AOCD) Secondary Diagnoses/Problems: 1. Chronic thrombocytopenia secondary to cirrhosis Procedures: PRBCS 2 units since admission IV antibiotics IV Albumin 25 % x 3 days Cultures Paracentesis attempted but unable to do due to unavailability of probe needle, but any ways not indicated as small v olume ascites only per CT scan CT scan abdomen/pelvis CXR Consultations: GI Pending Studies/Follow-Up: Instructions / Follow-Up Instructions / Follow-Up MEDICATION CHANGES: 1. Increase spironolactone to 50 mg daily 2. Continue with lasix 20 mg twice a day 3. New medication: Ciprofloxacin 500 mg PO BID for 10 more days to complete course of 14 days of antibiotics for Bacteremia/UTI DIET: 2 GRAM SODIUM, Fluid restriction 1800 cc FOLLOW UP: 1. Dr Lagunas in 1 week. We will call you for appt date/time 2. Follow up with GI - to establish care with GI 3. Follow up with ID as scheduled for hepatitis C Medication Reconciliation Changed Medications: Spironolactone (Aldactone) 25 Mg Tab 50 MG PO DAILY for 30 Days, #60 TAB (Changed from: 25 MG) Continued Medications: Furosemide (Lasix) 20 Mg Tab 20 MG PO BID, TAB Lactulose (Chronulac) 10 Gm/15 Ml Syrp 10 GM PO QID Nadolol (Corgard) 20 Mg Tab 20 MG PO DAILY Omeprazole (Prilosec) 20 Mg Capcr 20 MG PO DAILY, CAP Rifaximin (Xifaxan) 550 Mg Tab 550 MG PO BID Discontinued Medications: Potassium Ext Rel (Klor-Con) 20 Meq Tabcr 20 MEQ PO DAILY Admission Information HPI (per Admitting provider): 46 year old male who presents to the ER with abdominal distention and jaundice. Patient reports his abdomen has been increasing in size and lower extremity edema over the past two weeks. He notes a 28 pound weight gain. He reports epigastric pain. No nausea or vomiting. His stools are chronically loose due to lactulose which are unchanged. He reports one episode of BRBPR. He reports blood was a small amount. He denies dark tarry stools. He also reports urinary frequency and hesitancy. He denies fever and chills. Over the past two days his skin has been turning yellow. He denies chest pain. He reports shortness of breath when laying down to sleep at night. He denies lightheadedness, dizziness , and diaphoresis. Family is at the bedside who report he has been lethargic over the past couple of days. In the ER, hgb is 7.9 (noted to be 7.8 06/2015). T. bili is found to be 10.5 (up from 3.5 06/2015). Ammonia is 48. U/A suggests possible UTI. Patient was given IV Zosyn, IVF, and morphine. Physical Exam (per Admitting): General Appearance: + mild distress (mild lethargy) Head: normocephalic Eyes: normal inspection ENT: hearing grossly normal Neck: supple, no JVD Respiratory/Chest: lungs clear, normal breath sounds, no respiratory distress Cardiovascular: regular rate, rhythm, + pertinent finding (+2 pitting edema BLLE) Abdomen/GI: normal bowel sounds, soft, + tenderness (epigastric), + distended Extremities/Musculoskelatal: normal inspection, no calf tenderness Neurologic/Psych: no motor/sensory deficits, oriented x 3, + pertinent finding (mild lethargy) Skin: warm/dry, + jaundice Hospital Course ASSESSMENT/PLAN: PANCYTOPENIA : Improved Possibly secondary to bacteremia/Antibiotics in setting of cirrhosis. ANC around 1600 -No signs of active bleeding -Received 1 unit PRBC on 12/11/16 and 1 unit on 12/14/16 (Total 2 units since admission) -Monitor closely outpatient CIRRHOSIS (HCV), DECOMPENSATED: -TB 10.3 on admission; Came with increasing abdominal distension, lower extremity edema. -S/P IV lasix x 1 day - Restarted Lasix 20 mg bid (home dose) and Aldactone at increased dose of 50 mg from 25 mg , continue with Rifaximin, Lactulose 10 g QID (home medications -IV Albumin x 3 days received -CT scan- mild ascites- small volume-- Paracentesis attempted but unable to do due to lack of staffing and later patient refused (No indication any ways due to small volume ascites and no concerns for SBP) -GI consulted. Appreciate inputs BACTEREMIA, E COLI SECONDARY TO UTI :(E coli) Bl cultures came back positive for E coli - 1/2 bottles, 2nd - negative -Sources: UTI growing E coli. Considered SBP but CT scan- small volume ascites, unable to perform it yesterday and patient is refused procedure, but doubt it is SBP as UA/Blood cx both growing E coli -IV Zosyn (Day 2) --> Changed to IV Rocephin (Day 14) per C/S results--> Change to Ciprofloxacin BID for 10 more days to complete course of 14 days of antibiotics -Urine c/s- E coli, Blood cx- E coli pansensitive; Repeat Blood culture - negative SBO per CT scan -No hx of vomiting, has had multiple BMS . CT scan shows SBO and recommended surgical consult -Tolerating diet well -Surgery on board- appreciate inputs-- no surgical intervention recommended. 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 Hx of varices per recent EGD. Has had EGD/Colonoscopy in past No more episodes. HB stable around 8 -Protonix IV BID--> changed to protonix 40 mg daily -H & H monitoring -GI consulted. Appreciate inputs HEPATIC ENCEPHALOPATHY, MILD- Resolved -Ammonia 48 on admission-trending down; Mental status- slow, but oriented x 2 on admission, AAOX3. -Lactulose 15 g BID, Rifaximin BID ACUTE ON CHRONIC ANEMIA -Hb down to 7.4, but no active GI bleeding. HB 8.6 today -S/P PRBC 1 unit on 12/13/16 and today 1 unit to be transfused on 12/14/16 -Monitor with hx of GI Bleeding/Varices outpatient THROMBOCYTOPENIA secondary to Cirrhosis Platelets 61 on admission -No active bleeding noted -Monitor DVT prophylaxis, SCDs. RE GI bleed FULL CODE DISPOSITION OKay to discharge home today PT/OT - recommended home discharge Follow up with PCP in 1 week Follow up with GI - to establish care Total time spent on discharge = 32 minutes This includes examination of the patient, discharge planning, medication reconciliation, and communication with other providers. Discharge Instructions Activity Recommendations Activity Limitations: resume your previous activity . Instructions / Follow-Up Instructions / Follow-Up MEDICATION CHANGES: 1. Increase spironolactone to 50 mg daily 2. Continue with lasix 20 mg twice a day 3. New medication: Ciprofloxacin 500 mg PO BID for 10 more days to complete course of 14 days of antibiotics for Bacteremia/UTI DIET: 2 GRAM SODIUM, Fluid restriction 1800 cc FOLLOW UP: 1. Dr Lagunas in 1 week. We will call you for appt date/time 2. Follow up with GI - to establish care with GI 3. Follow up with ID as scheduled for hepatitis C Current Hospital Diet Patient's current hospital diet: Low Sodium Diet (2gm Na), AHA Diet (Heart Healthy) Discharge Diet Recommended Diet: AHA Diet (Heart Healthy), Low Sodium Diet (2gm Na) Fluid Restriction: 1800 ml (7 cups) Pending Studies Studies pending at discharge: no Medical Emergencies . Who to Call and When: Medical Emergencies: If at any time you feel your situation is an emergency, please call 911 immediately. . Non-Emergent Contact Non-Emergency issues call your: Primary Care Provider . . "Provider Documentation" section prepared by Mimi Wise. VTE Core Measure Inpt VTE Proph given/why not?: T.E.D. Stockings, SCD's, Contraindicated (re: thrombocytopenia)
[2016-12-16] MEDS ORDERED: CPR500 PO (10:03)
--- NOTE | 2016-12-17 12:14 | EDITING REQUIRED CODING QUERY ---
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 Please assist us with the question(s) below: In responding to this query, please exercise your independent professional judgement. The fact that a question is asked does not imply that any particular answer is desired or expected. We appreciate your clarification on this issue. The terms Sepsis, Bactermia, and Urosepsis are all documented within the record can you please clarify the final diagnosis below. ()Bacteremia (Nonspecific laboratory finding of bacteria in the blood) Specify Organism (+) Present on Admission () Not present on admission () Unable to clinically determine () Sepsis Specify Organism Specify Associated Condition/Diagnosis () Present on Admission () Not present on admission (+) Unable to clinically determine () Other, patient has:
[2017-01-23] MEDS ORDERED: SPIR25TA PO (17:03)
[2017-01-25] MEDS ORDERED: PRT40 PO (13:01)
[2017-03-11] MEDS ORDERED: ULT50X PO (12:29)
[2017-03-11] MEDS ORDERED: CPR500 PO (12:29)
[2017-03-11] MEDS ORDERED: LCTX PO (12:29)
== END 2016-12-16 13:15 | disposition home or self-care (01) | DRG 872 ==
LOC: ENRESERVDT → ENRESERVTM → C.EDB 14:43 → C.MS2W 21:48
PROVIDERS: ADMIT Internal Medicine; ATTEND Internal Medicine
DX: R78.81 Bacteremia (principal); D61.818 Other pancytopenia; K56.60 Unspecified intestinal obstruction; N39.0 Urinary tract infection, site not specified; K92.1 Melena; B19.20 Unspecified viral hepatitis C without hepatic coma; B96.20 Unspecified Escherichia coli [E. coli] as the cause of diseases classified elsewhere; I10 Essential (primary) hypertension; Z87.891 Personal history of nicotine dependence; Z82.49 Family history of ischemic heart disease and other diseases of the circulatory system; K72.90 Hepatic failure, unspecified without coma; K70.31 Alcoholic cirrhosis of liver with ascites

== ENCOUNTER 2017-01-23 14:06 | Inpatient (IN) | payer OTHER ==
[~2017-01-23] VITALS: Ht 180.3 cm; Wt 109.8 kg
[~2017-01-23 14:06] MED LIST changes: -BCTROWC TOP; +CPR500 PO; +FURO-85 PO; -HARVONI PO; +LACT10SO17 PO; -LCTL30 PO; -LSX20 PO; -MULT-589 PO; -NZRCR EXT; -POTA20TA16 PO; +PRLSR20 PO; -PRT40 PO; -RIBA200T4 PO; +SPIR25TA PO; -SPRN100 PO
[2017-01-23 14:34] VITALS: BP 150/72; PULSE 89; TEMP 36.5; O2SAT 100
[2017-01-23 14:36] VITALS: Ht 180.3 cm; Wt 109.8 kg
[2017-01-23 15:44] LABS: HEMATOCRIT 24.3 % (42-52); MEAN CELL VOLUME 99.6 fL (80-100); MEAN CORPUSCULAR HGB CONC 34.2 g/dl (32-36); RED BLOOD COUNT 2.44 M/uL (4.7-6.1); WHITE BLOOD COUNT 3.89 K/uL (4.8-10.8)
[2017-01-23 16:03] LABS: ALB/GLOB RATIO 0.4 (0.9-2); BUN/CREATININE RATIO 11.2 (10-20); CALCIUM 7.2 mg/dl (8.5-10.1); CREATININE 0.7 mg/dl (0.60-1.40)
[2017-01-23 16:06] LABS: MEAN PLATELET VOLUME 10.2 fL (7.4-10.4); PLATELET COUNT 45 K/uL (130-400)
[2017-01-23 16:07] LABS: INR 1.6 (0.9-1.1); PLT ESTIMATE DECREASED; PROTHROMBIN TIME (PATIENT) 17.3 SECONDS (9.0-12.0)
--- NOTE | 2017-01-23 16:50 | History and Physical ---
History & Physical Date & Time of Service: Jan 23, 2017 at 16:09 Chief Complaint: Fluid Overload, Alcoholic Cirrhosis Primary Care Physician: Valeria Lagunas M.D. History of Present Illness Source: patient, clinic records, hospital records 46 yo Male with PMH of cirrhosis, Hep C, hx of ETOH (last alcohol drink was 2010 ), esophageal varices, hypertension was sent as a direct admission after he was seen at the [facility] Gastro office for follow up. He was seen by Trudy CARDOZA. Pt said that is being having worsening SOB associated with abdominal distention and lower extremities edema for the past week. He also has been feeling very tired. He said that he gains 23 lbs since discharge from the hospital back in mid December. Pt said that he has not been taking the lasix daily because it causes him to have cramp. He said that he has not been watching his fluid intake. denies any fever, chest pain, palpitation and dizziness. Past Medical/Surgical History Medical Problems: (1) Cirrhosis Status: Chronic (2) Depression Status: Chronic (3) Esophageal varices Status: Chronic (4) Hepatitis C Status: Chronic (5) HTN (hypertension) Status: Chronic Family History FH: CAD (coronary artery disease) FATHER MOTHER Social History Smoking Status: Never Smoker Alcohol Use: quits in 2010 Drug Use: none, other Immunizations History of Influenza Vaccine: Yes Influenza Vaccine Date: Jul 05, 2012 History of Tetanus Vaccine?: Yes Tetanus Immunization Date: Jun 04, 2008 Allergies Coded Allergies: No Known Allergies (Unverified , 12/11/16) Home Medications Scheduled Furosemide (Lasix), 20 MG PO BID Ketoconazole (Topical) (Ketoconazole), 1 APPLN TOP BID Lactulose (Chronulac), 10 GM PO QID Nadolol (Corgard), 20 MG PO DAILY Rifaximin (Xifaxan), 550 MG PO BID Spironolactone (Aldactone), 50 MG PO BID Triamcinolone Acet (Aristocort 0.1%), 1 APPLN TOP BID Review of Systems Constitutional: No chills, No fever Eyes: No eye pain, No worsening of vision ENT: No hearing loss, No nasal symptoms, No unusual epistaxis Respiratory: No cough, No sputum, No wheezing Cardiovascular: + edema, No chest pain Abdomen: No nausea, No pain Musculoskeletal: No joint pain Genitourinary - Male: No dysuria, No hematuria Neurologic: No memory loss Psychiatric: No depression symptoms Endocrine: No fatigue Hematologic / Lymphatic: No abnormal bleeding/bruising Integumentary: No itch, No rash Physical Exam Vital Signs Date Time Temp Pulse Resp B/P Pulse Ox O2 Delivery O2 Flow Rate FiO2 01/23/17 14:36 Room Air 01/23/17 14:34 36.5 89 20 150/72 100 Room Air General Appearance: WD/WN, no apparent distress Head: normocephalic, atraumatic Eyes: normal inspection, EOMI ENT: normal ENT inspection, hearing grossly normal Neck: supple, no JVD Respiratory/Chest: chest non-tender, lungs clear, no respiratory distress, no accessory muscle use Cardiovascular: regular rate, rhythm, no JVD, no murmur Abdomen/GI: normal bowel sounds, non tender, + distended Back: normal inspection, no CVA tenderness Extremities/Musculoskelatal: no calf tenderness, + pedal edema Neurologic/Psych: no motor/sensory deficits, alert, normal mood/affect Skin: warm/dry, no rash, + jaundice Diagnostics Laboratory Results Results Past 24 Hours Test 01/23/17 15:30 Range/Units White Blood Count 3.89 4.8-10.8 K/uL Red Blood Count 2.44 4.7-6.1 M/uL Hemoglobin 8.3 14.0-18.0 g/dL Hematocrit 24.3 42-52 % Mean Corpuscular Volume 99.6 80-100 fL Mean Corpuscular Hemoglobin 34.0 25-34 pg Mean Corpuscular Hemoglobin Concent 34.2 32-36 g/dl RDW Standard Deviation 65.1 36.4-46.3 fL RDW Coefficient of Variation 17.7 11.5-14.5 % Platelet Count 45 130-400 K/uL Mean Platelet Volume 10.2 7.4-10.4 fL Platelet Estimate DECREASED Prothrombin Time 17.3 9.0-12.0 SECONDS Prothromb Time International Ratio 1.6 0.9-1.1 Sodium Level 136 136-145 mmol/L Potassium Level 4.0 3.5-5.1 mmol/L Chloride Level 104 98-107 mmol/L Carbon Dioxide Level 23 21-32 mmol/L Anion Gap 9.0 3-11 mmol/L Blood Urea Nitrogen 8 7-18 mg/dl Creatinine 0.70 0.60-1.40 mg/dl Est Creatinine Clear Calc Drug Dose 168.8 ml/min Estimated GFR () 131.2 Estimated GFR (Non- 113.2 BUN/Creatinine Ratio 11.2 10-20 Random Glucose 104 70-99 mg/dl Calcium Level 7.2 8.5-10.1 mg/dl Total Bilirubin 7.2 0.2-1 mg/dl Aspartate Amino Transf (AST/SGOT) 92 15-37 U/L Alanine Aminotransferase (ALT/SGPT) 45 12-78 U/L Alkaline Phosphatase 278 45-117 U/L Ammonia 65.0 11-32 umol/L Total Protein 5.5 6.4-8.2 gm/dl Albumin 1.6 3.4-5.0 gm/dl Globulin 3.9 2.5-4.0 gm/dl Albumin/Globulin Ratio 0.4 0.9-2 Microbiology Results 01/23/17 Blood Culture, Received Pending 01/23/17 Blood Culture, Received Pending Impression Assessment and Plan Abdominal distention/ Ascites -Sent as a direct admission for increasing abdominal distension, lower extremity edema and SOB - Hx of HCV cirrhosis - Denies any fever and chills - will check cbc, cmp, PT/INR and ammonia level, blood cx and UA - will get cxr and u/s of abdomen for the ascites - Consider u/s guided paracentesis if able to after u/s result - Will consult GI ( He saw Trudy today in the office) - will start lasix 40 mg and spironolactone, lactulose once lab results - Will give albumin 25% x1 - Will put on fluid restriction Worsening SOB -Mostly related to Ascites - Will get CXR - Lasix and spironolactone - Monitor closely CHRONIC ANEMIA - CBC pending - will monitor closely - if hbg below 8, will transfuse prbc Hx THROMBOCYTOPENIA -secondary to Cirrhosis -No active bleeding noted - CBC pending -Monitor DVT prophylaxis SCDs due to recent episode of GI bleed in the last admission CODE STATUS FULL CODE Advanced Directives Existing Living Will: No Existing Power of Skin Specialist: Yes ( ) Resuscitation Status FULL RESUSCITATION VTE Prophylaxis VTE Risk Assessment Done? Y/N: Yes Risk Level: Moderate Given or contraindicated: SCD's
[2017-01-23] MEDS ORDERED: FUROSEMIDE INJ 40 MG in SYRINGE 0 ML IV ONE (16:51)
[2017-01-23] MEDS ORDERED: SPIR25TA PO (17:03)
[2017-01-23] MEDS ORDERED: KETO2SHA TOP (17:03)
[2017-01-23] MEDS ORDERED: TRMCR130WC TOP (17:03)
--- NOTE | 2017-01-23 17:42 | DIAGNOSTIC IMAGING REPORT ---
CHEST ONE VIEW PORTABLE CLINICAL HISTORY: sob COMPARISON STUDY: 12/10/2016 FINDINGS: The cardiac and mediastinal contours are normal. There is no evidence of focal pulmonary consolidation. There is no evidence of failure. No pleural effusions are visualized.[ IMPRESSION: No active disease in the chest. Electronically signed by: Brice Coello M.D. 01/23/2017 5:41 PM Dictated Date/Time: 01/23/2017 5:40 PM
[2017-01-23] MEDS ORDERED: ALBUMIN 25% 50 ML with FUROSEMIDE INJ 40 MG IV ONE ×2 (18:00)
[2017-01-23] MEDS: SPIRONOLACTONE 25 MG TAB PO SCH (19:00)
[2017-01-23] MEDS: LACTULOSE SYRUP 20 GM/30 ML UDC PO SCH ×2 (19:01→21:16)
[2017-01-23] MEDS: RIFAXIMIN TAB 550 MG TAB PO SCH (19:02)
[2017-01-23 19:54] VITALS: BP 115/55; PULSE 86; TEMP 36.8; O2SAT 97
--- NOTE | 2017-01-23 19:57 | DIAGNOSTIC IMAGING REPORT ---
LIMITED ABDOMINAL ULTRASOUND FOR ASCITES EVALUATION CLINICAL HISTORY: ascites COMPARISON STUDY: 12/11/2016 FINDINGS: There is low volume ascites, slightly diminished in volume when compared the prior December 11, 2016 study. IMPRESSION: Low volume 4 quadrant ascites. Electronically signed by: Brice Coello M.D. 01/23/2017 7:56 PM Dictated Date/Time: 01/23/2017 7:54 PM
[2017-01-23 23:00] VITALS: BP 132/63; PULSE 92; TEMP 36.5; O2SAT 99
[2017-01-24] VITALS (9 sets, daily range): BP systolic 107–138; BP diastolic 54–74; PULSE 61–85; TEMP 36.3–36.8; O2SAT 95–100
[2017-01-24 05:59] LABS: HEMATOCRIT 25.3 % (42-52); MEAN CELL VOLUME 97.3 fL (80-100); MEAN CORPUSCULAR HEMOGLOBIN 33.5 pg (25-34); MEAN CORPUSCULAR HGB CONC 34.4 g/dl (32-36); WHITE BLOOD COUNT 2.15 K/uL (4.8-10.8)
[2017-01-24 06:42] LABS: ALB/GLOB RATIO 0.4 (0.9-2); BUN/CREATININE RATIO 11.4 (10-20); CALCIUM 7.4 mg/dl (8.5-10.1); CREATININE 0.76 mg/dl (0.60-1.40)
[2017-01-24 07:10] LABS: MEAN PLATELET VOLUME 9.7 fL (7.4-10.4); PLATELET COUNT 37 K/uL (130-400)
[2017-01-24 07:59] LABS: BASO % 0.5 %; BASO ABS # 0.01 K/uL (0-0.2); COMPLETE YES; EOS % 2.3 %; IG% 0.5 %; LYMPH % 35.8 %; LYMPH ABS # 0.77 K/uL (1.2-3.4); NEUT % 54.9 %
[2017-01-24] MEDS: SPIRONOLACTONE 25 MG TAB PO SCH ×2 (08:30→16:31)
[2017-01-24] MEDS: NADOLOL 40 MG TAB PO SCH (08:31)
[2017-01-24] MEDS: LACTULOSE SYRUP 20 GM/30 ML UDC PO SCH ×4 (08:31→20:58)
[2017-01-24] MEDS: RIFAXIMIN TAB 550 MG TAB PO SCH ×2 (08:31→20:58)
[2017-01-24] MEDS ORDERED: FUROSEMIDE INJ 40 MG in SYRINGE 0 ML IV SCH (09:00)
--- NOTE | 2017-01-24 11:17 | Gastrointestinal Consultation ---
Gastrointestinal Consultation Date of Consultation: Jan 24, 2017 Attending Physician: Arcenio Parker Consulting Physician: Sandeep Lin Reason for Consultation: Cirrhosis, fluid overload History of Present Illness Pt is a 46 year old male who I referred yesterday for direct admission from clinic to hospital for fluid overload. He has hx of ETOH and HCV cirrhosis (hx of IVDU). Baseline MELD mid teens. He states last ETOH intake was in 2010, last HCV RNA checked at [facility] last month was undetectable. Denies any illicit drugs including marijuana. Pt was recently admitted at [facility] from 12/10 to 12/16 for urosepsis (Urine cx and 1 set of blood cx grew Ecoli). He was also noted to have SBO via CT scan, Dr. Clarke (Surgery) following and deferred surgical intervention at that time, based on his clinical symptoms then SBO was suspected to be less likely. He was treated w antibiotics and conservative management of his ? SBO. Yesterday at clinic he was c/o increased SOB, weight gain (23 lbs since mid December), abd distension and leg swelling w weeping areas. His aunt who was with him also noted pt to be more sleepy and tired recently. - Hx of hepatic encephalopathy, ammonia level 65. His Lactulose initially held for suspected SBO but then restarted. Pt unclear of dose but on med list it's 10g QID. He's only having 1 BM daily. - JIMENEZ w walking, denies any cough, fevers. - He has chronic anemia, denies any s/s of GI bleeding, hematuria, open bleeding wounds. Hgb around 7-8. Did receive 2U PRBC transfusion at last admission. Last EGD 06/2015 w signs of small esophageal varices, stomach congested, erythematous, hiatal hernia. He has hx of GI bleed from [facility]. No records of colonoscopy. - Abd distension but denies any abd pain, n/v. Legs swelling w weeping areas. Unclear doses of his diuretics. ? Spironolactone 50mg BID. He stopped Lasix due to hand cramping but states would take a dose of ? 20mg w KCl supplement when he feels he "needs to". Admits to be eating lots of dill pickles and drinking up to 112 oz fluid combined water and sodas. After admission he had Albumin 25% x 1 vial. Total of Lasix 80mg IV. Net output of 2.5L, weight decreased from 113 to 111kg. He reports having improved breathing. His CXR was clear yesterday and abd u/s showed only low volume ascites. Leg swelling improving per pt. He denies any abd pain, n/v. Also afebrile overnight. Blood cultures obtained, pending. Past Medical/Surgical History As noted above. Family History FH: CAD (coronary artery disease) FATHER MOTHER Social History Smoking Status: Never Smoker Alcohol Use: other (History of ETOH abuse) Drug Use: none, other Housing Status: lives with family Allergies Coded Allergies: No Known Allergies (Unverified , 12/11/16) Current Medications Home Meds and Scripts Medications Dose Route/Sig Max Daily Dose Days Date Category Ketoconazole (Ketoconazole (Topical)) 2 % Sha 1 Appln TOP BID 30 01/23/17 Reported Aristocort 0.1% (Triamcinolone Acet) 90 Appln/30 Gm Cr 1 Appln TOP BID 30 01/23/17 Reported Aldactone (Spironolactone) 25 Mg Tab 50 Mg PO BID 30 01/23/17 Rx Chronulac (Lactulose) 10 Gm/15 Ml Syrp 10 Gm PO QID 12/10/16 Reported Lasix (Furosemide) 20 Mg Tab 20 Mg PO BID 12/10/16 Reported Corgard (Nadolol) 20 Mg Tab 20 Mg PO DAILY 06/22/15 Reported Xifaxan (Rifaximin) 550 Mg Tab 550 Mg PO BID 06/22/15 Reported Review of Systems Constitutional: No chills, No fever Respiratory: + shortness of breath (improved), No cough Cardiac: + edema, No chest pain Abdomen: No nausea, No pain, No vomiting Skin: + jaundice, No itch, No rash Physical Exam Date Time Temp Pulse Resp B/P Pulse Ox O2 Delivery O2 Flow Rate FiO2 01/24/17 08:00 Room Air 01/24/17 07:53 36.6 83 18 129/70 99 Room Air 01/24/17 04:41 36.7 85 18 137/60 99 Room Air 01/24/17 04:00 Room Air 01/24/17 00:00 Room Air 01/23/17 23:00 36.5 92 18 132/63 99 Room Air 01/23/17 20:00 Room Air 01/23/17 19:54 36.8 86 20 115/55 97 Room Air 01/23/17 16:00 Room Air 01/23/17 14:36 Room Air 01/23/17 14:34 36.5 89 20 150/72 100 Room Air General Appearance: WD/WN, no apparent distress Eyes: EOMI, + pertinent finding (Jaundiced sclera) Neck: supple, no JVD, trachea midline Respiratory/Chest: normal breath sounds, no respiratory distress, no accessory muscle use Cardiovascular: regular rate, rhythm, no gallop, no murmur Abdomen: normal bowel sounds, non tender, soft Extremities: + swelling (+1 pitting edema on bilateral LE) Neurologic/Psych: alert, normal mood/affect, oriented x 3 Skin: + jaundice Laboratory Results Last 24 Hours Test 01/23/17 15:30 01/24/17 05:30 White Blood Count 3.89 K/uL 2.15 K/uL Red Blood Count 2.44 M/uL 2.60 M/uL Hemoglobin 8.3 g/dL 8.7 g/dL Hematocrit 24.3 % 25.3 % Mean Corpuscular Volume 99.6 fL 97.3 fL Mean Corpuscular Hemoglobin 34.0 pg 33.5 pg Mean Corpuscular Hemoglobin Concent 34.2 g/dl 34.4 g/dl RDW Standard Deviation 65.1 fL 62.0 fL RDW Coefficient of Variation 17.7 % 17.3 % Platelet Count 45 K/uL 37 K/uL Mean Platelet Volume 10.2 fL 9.7 fL Platelet Estimate DECREASED Prothrombin Time 17.3 SECONDS Prothromb Time International Ratio 1.6 Sodium Level 136 mmol/L 137 mmol/L Potassium Level 4.0 mmol/L 4.0 mmol/L Chloride Level 104 mmol/L 104 mmol/L Carbon Dioxide Level 23 mmol/L 25 mmol/L Anion Gap 9.0 mmol/L 8.0 mmol/L Blood Urea Nitrogen 8 mg/dl 9 mg/dl Creatinine 0.70 mg/dl 0.76 mg/dl Est Creatinine Clear Calc Drug Dose 168.8 ml/min 155.5 ml/min Estimated GFR () 131.2 126.8 Estimated GFR (Non- 113.2 109.4 BUN/Creatinine Ratio 11.2 11.4 Random Glucose 104 mg/dl 78 mg/dl Calcium Level 7.2 mg/dl 7.4 mg/dl Total Bilirubin 7.2 mg/dl 8.4 mg/dl Aspartate Amino Transf (AST/SGOT) 92 U/L 84 U/L Alanine Aminotransferase (ALT/SGPT) 45 U/L 40 U/L Alkaline Phosphatase 278 U/L 259 U/L Ammonia 65.0 umol/L Total Protein 5.5 gm/dl 5.6 gm/dl Albumin 1.6 gm/dl 1.6 gm/dl Globulin 3.9 gm/dl 4.0 gm/dl Albumin/Globulin Ratio 0.4 0.4 Neutrophils (%) (Auto) 54.9 % Lymphocytes (%) (Auto) 35.8 % Monocytes (%) (Auto) 6.0 % Eosinophils (%) (Auto) 2.3 % Basophils (%) (Auto) 0.5 % Neutrophils # (Auto) 1.18 K/uL Lymphocytes # (Auto) 0.77 K/uL Monocytes # (Auto) 0.13 K/uL Eosinophils # (Auto) 0.05 K/uL Basophils # (Auto) 0.01 K/uL Immature Granulocyte % (Auto) 0.5 % Immature Granulocyte # (Auto) 0.01 K/uL Impression Patient is a 46 year old male w ETOH and HCV cirrhosis here for fluid overload. Plan - Lactulose 10g QID for hepatic encephalopathy prevention. Titrate for goal BM 3 -5 a day. - 1 more day of Lasix IV 40mg; Then diuretics of Spironolactone 50mg BID, Lasix 20mg daily (lower dose of Lasix to start given pt's c/o hand cramping w this med ). Monitor electrolytes. - Nadolol 20mg daily - 2g Na diet; 1.5L fluid restriction. Evening Or Night Nurse Supervisor consult for education placed - Albumin 25% 25g IV today - Monitor H/H and transfuse prn. - Continue ETOH, illicit drug avoidance. ATTESTATION: I have performed a history and physical examination of this patient and reviewed the electronic record. Specifically, on physical examination there is ankle edema and mild abdominal distention but no asterixis. I have discussed the case with NANI Gonzales. The above note reflects my findings, conclusions, and recommendations. Sandeep Lin MD
[2017-01-24] MEDS: ALBUMIN HUMAN 25% 12.5 GM/50 ML VIAL IV SCH (11:45)
--- NOTE | 2017-01-24 16:44 | Progress Note ---
Internal Med Progress Note Date of Service: Jan 24, 2017. Provider Documentation: SUBJECTIVE: The patient was seen and examined Feels a lot better Diuresed a lot Denies any abdominal distension OBJECTIVE: Vital Signs-as noted below Exam: General-no distress at rest Eyes-normal ENT-normal Neck-supple Lungs-clear to ausucltate bilaterally Heart-Regular,no murmur Abdomen-Soft,mildly distended,minimal ascites clinically Extremities-1+ edema bilaterally Neuro-AAOx3 Lab data as noted below. ASSESSMENT & PLAN: Tense Ascites Abdominal distention with weight Gain,SOB and pain Secondary to HCV cirrhosis Denies any fever and chills Received IV Lasix and that worked very well Appreciate GI input-no plan todo paracentesis Start Lasix 40 mg and spironolactone, lactulose once lab results IV Albumin and low salt diet CHRONIC ANEMIA -Hb >8 -Remains stable THROMBOCYTOPENIA -secondary to Cirrhosis -No active bleeding noted DVT prophylaxis SCDs due to recent episode of GI bleed in the last admission CODE STATUS FULL CODE DISPOSITION Likely home tomorrow Vital Signs: Date Time Temp Pulse Resp B/P Pulse Ox O2 Delivery O2 Flow Rate FiO2 01/24/17 16:10 Room Air 01/24/17 15:45 36.6 75 22 114/60 99 Room Air 01/24/17 13:17 18 130/69 100 Room Air 01/24/17 12:29 Room Air 01/24/17 12:00 Room Air 01/24/17 11:52 36.8 61 18 125/68 95 Room Air 01/24/17 11:06 36.3 72 18 138/74 99 01/24/17 08:00 Room Air 01/24/17 07:53 36.6 83 18 129/70 99 Room Air 01/24/17 04:41 36.7 85 18 137/60 99 Room Air 01/24/17 04:00 Room Air 01/24/17 00:00 Room Air 01/23/17 23:00 36.5 92 18 132/63 99 Room Air 01/23/17 20:00 Room Air 01/23/17 19:54 36.8 86 20 115/55 97 Room Air Lab Results: Results Past 24 Hours Test 01/24/17 05:30 Range/Units White Blood Count 2.15 4.8-10.8 K/uL Red Blood Count 2.60 4.7-6.1 M/uL Hemoglobin 8.7 14.0-18.0 g/dL Hematocrit 25.3 42-52 % Mean Corpuscular Volume 97.3 80-100 fL Mean Corpuscular Hemoglobin 33.5 25-34 pg Mean Corpuscular Hemoglobin Concent 34.4 32-36 g/dl Platelet Count 37 130-400 K/uL Mean Platelet Volume 9.7 7.4-10.4 fL Neutrophils (%) (Auto) 54.9 % Lymphocytes (%) (Auto) 35.8 % Monocytes (%) (Auto) 6.0 % Eosinophils (%) (Auto) 2.3 % Basophils (%) (Auto) 0.5 % Neutrophils # (Auto) 1.18 1.4-6.5 K/uL Lymphocytes # (Auto) 0.77 1.2-3.4 K/uL Monocytes # (Auto) 0.13 0.11-0.59 K/uL Eosinophils # (Auto) 0.05 0-0.5 K/uL Basophils # (Auto) 0.01 0-0.2 K/uL RDW Standard Deviation 62.0 36.4-46.3 fL RDW Coefficient of Variation 17.3 11.5-14.5 % Immature Granulocyte % (Auto) 0.5 % Immature Granulocyte # (Auto) 0.01 0.00-0.02 K/uL Sodium Level 137 136-145 mmol/L Potassium Level 4.0 3.5-5.1 mmol/L Chloride Level 104 98-107 mmol/L Carbon Dioxide Level 25 21-32 mmol/L Anion Gap 8.0 3-11 mmol/L Blood Urea Nitrogen 9 7-18 mg/dl Creatinine 0.76 0.60-1.40 mg/dl Est Creatinine Clear Calc Drug Dose 155.5 ml/min Estimated GFR () 126.8 Estimated GFR (Non- 109.4 BUN/Creatinine Ratio 11.4 10-20 Random Glucose 78 70-99 mg/dl Calcium Level 7.4 8.5-10.1 mg/dl Total Bilirubin 8.4 0.2-1 mg/dl Aspartate Amino Transf (AST/SGOT) 84 15-37 U/L Alanine Aminotransferase (ALT/SGPT) 40 12-78 U/L Alkaline Phosphatase 259 45-117 U/L Total Protein 5.6 6.4-8.2 gm/dl Albumin 1.6 3.4-5.0 gm/dl Globulin 4.0 2.5-4.0 gm/dl Albumin/Globulin Ratio 0.4 0.9-2
[2017-01-25 04:25] VITALS: BP 121/66; PULSE 72; TEMP 36.7; O2SAT 97
[2017-01-25 07:24] VITALS: BP 128/69; PULSE 76; TEMP 36.8; O2SAT 97
[2017-01-25] MEDS: LACTULOSE SYRUP 20 GM/30 ML UDC PO SCH ×3 (08:17→17:08)
[2017-01-25] MEDS: NADOLOL 40 MG TAB PO SCH (08:17)
[2017-01-25] MEDS: SPIRONOLACTONE 25 MG TAB PO SCH ×2 (08:18→17:08)
[2017-01-25] MEDS: RIFAXIMIN TAB 550 MG TAB PO SCH (08:18)
[2017-01-25] MEDS ORDERED: PANTOprazole SOD 40 MG TAB PO SCH (09:00)
[2017-01-25] MEDS ORDERED: FUROSEMIDE 20 MG TAB PO SCH (09:00)
--- NOTE | 2017-01-25 10:23 | Progress Note ---
Internal Med Progress Note Date of Service: Jan 25, 2017. Provider Documentation: SUBJECTIVE: The patient was seen and examined Feels a lot better Diuresed a lot Denies any abdominal distension Ambulating well and ready to go home OBJECTIVE: Vital Signs-as noted below Exam: General-no distress at rest Eyes-normal ENT-normal Neck-supple Lungs-clear to ausucltate bilaterally Heart-Regular,no murmur Abdomen-Soft,no distension ,bowel sound present Extremities-1+ edema bilaterally-improves further Neuro-AAOx3 Lab data as noted below. ASSESSMENT & PLAN: Tense Ascites Abdominal distention with weight Gain,SOB and pain Secondary to HCV cirrhosis Denies any fever and chills Received IV Lasix and that worked very well Appreciate GI input-no plan to do paracentesis Start Lasix 40 mg and spironolactone, lactulose once lab results IV Albumin and low salt diet Clinically a lot better Discussed with GI 01/24/17 Can be discharged CHRONIC ANEMIA -Hb >8 -Remains stable THROMBOCYTOPENIA -secondary to Cirrhosis -No active bleeding noted -check Platelet today DVT prophylaxis SCDs due to recent episode of GI bleed in the last admission CODE STATUS FULL CODE DISPOSITION Likely home today Vital Signs: Date Time Temp Pulse Resp B/P Pulse Ox O2 Delivery O2 Flow Rate FiO2 01/25/17 08:00 Room Air 01/25/17 07:24 36.8 76 20 128/69 97 Room Air 01/25/17 04:25 36.7 72 18 121/66 97 Room Air 01/25/17 04:00 Room Air 01/25/17 00:00 Room Air 01/24/17 23:51 36.8 75 18 108/55 97 Room Air 01/24/17 20:00 Room Air 01/24/17 19:52 36.7 72 20 107/54 97 Room Air 01/24/17 16:39 95 01/24/17 16:10 Room Air 01/24/17 15:45 36.6 75 22 114/60 99 Room Air 01/24/17 13:17 18 130/69 100 Room Air 01/24/17 12:29 Room Air 01/24/17 12:00 Room Air 01/24/17 11:52 36.8 61 18 125/68 95 Room Air 01/24/17 11:06 36.3 72 18 138/74 99
[2017-01-25 11:07] LABS: HEMATOCRIT 24.8 % (42-52); MEAN CORPUSCULAR HEMOGLOBIN 33.2 pg (25-34); MEAN CORPUSCULAR HGB CONC 33.9 g/dl (32-36); RED BLOOD COUNT 2.53 M/uL (4.7-6.1); WHITE BLOOD COUNT 3.24 K/uL (4.8-10.8)
[2017-01-25 11:17] LABS: MEAN PLATELET VOLUME 9.6 fL (7.4-10.4); PLATELET COUNT 51 K/uL (130-400)
[2017-01-25 11:26] VITALS: BP 127/68; PULSE 69; TEMP 36.3; O2SAT 100
[2017-01-25 11:37] LABS: BUN/CREATININE RATIO 14.6 (10-20); CALCIUM 7.6 mg/dl (8.5-10.1); CREATININE 0.71 mg/dl (0.60-1.40); POTASSIUM 3.8 mmol/L (3.5-5.1)
[2017-01-25] MEDS ORDERED: PRT40 PO (13:01)
--- NOTE | 2017-01-25 13:01 | Discharge Instructions ---
Discharge Instructions Date of Service Jan 25, 2017. Admission Reason for Admission: Fluid Overload, Alcoholic Cirrhosis Discharge Discharge Diagnosis / Problem: Tense Ascites,Cirrhisis Discharge Goals Goal(s): Prevent Disease Progression Activity Recommendations Activity Limitations: resume your previous activity . Instructions / Follow-Up Instructions / Follow-Up Dr Lagunas on 01/31/17 at 10:50 AM Current Hospital Diet Patient's current hospital diet: Low Sodium Diet (2gm Na) Discharge Diet Recommended Diet: Low Sodium Diet (2gm Na) Pending Studies Studies pending at discharge: no Medical Emergencies . Who to Call and When: Medical Emergencies: If at any time you feel your situation is an emergency, please call 911 immediately. . Non-Emergent Contact Non-Emergency issues call your: Primary Care Provider . Past History Medical & Surgical History: (1) Decompensation of cirrhosis of liver (2) Shortness of breath (3) Hepatitis C (4) HTN (hypertension) (5) Depression (6) Esophageal varices . "Provider Documentation" section prepared by Darlene Rogers. VTE Core Measure Inpt VTE Proph given/why not?: SCD's
[2017-01-25 13:49] VITALS: BP 127/68; PULSE 69; TEMP 36.3; O2SAT 100
--- NOTE | 2017-01-25 14:59 | Gastroenterology Progress Note ---
Progress Note Date of Service: Jan 25, 2017 Subjective Pt evaluation today including: conversation w/ patient, physical exam, chart review, lab review, review of studies, review of inpatient medication list Mr. Xiong is a 46 yr old male with cirrhosis with ascites, admitted on 12/26 for SOB and fluid overload. US with small ascites. CXR w/o ascites or effusions. SOB resolved after albumin and lasix. Review of Systems Constitutional: No fever Respiratory: No cough, No shortness of breath (resolved) Cardiac: No chest pain Abdomen: No diarrhea, No nausea, No pain Musculoskeletal: No joint pain Neuro: No memory loss Psych: No depression symptoms Heme: No abnormal bleeding/bruising Endo: + fatigue Skin: No jaundice Medications Current Inpatient Medications Medications (Trade) Dose Ordered Sig/Jaren Route Start Time Stop Time Status Last Admin Dose Admin Lactulose (Chronulac Syrup) 10 gm QID PO 01/23/17 18:00 02/22/17 17:59 01/25/17 12:28 10 GM Nadolol (Corgard Tab) 20 mg DAILY PO 01/24/17 09:00 02/23/17 08:59 01/25/17 08:17 20 MG Rifaximin (Xifaxan Tab) 550 mg BID PO 01/23/17 21:00 02/22/17 20:59 01/25/17 08:18 550 MG Spironolactone (Aldactone Tab) 50 mg BIDM PO 01/23/17 18:00 02/22/17 17:59 01/25/17 08:18 50 MG Furosemide (Lasix Tab) 20 mg QAM PO 01/25/17 09:00 02/24/17 08:59 01/25/17 08:17 20 MG Pantoprazole Sodium (Protonix Tab) 40 mg QAM PO 01/25/17 09:00 02/24/17 08:59 01/25/17 08:18 40 MG Objective Vital Signs Date Time Temp Pulse Resp B/P Pulse Ox O2 Delivery O2 Flow Rate FiO2 01/25/17 13:49 36.3 69 20 100 Room Air 01/25/17 12:00 Room Air 01/25/17 11:26 36.3 69 20 127/68 100 Room Air 01/25/17 08:00 Room Air 01/25/17 07:24 36.8 76 20 128/69 97 Room Air 01/25/17 04:25 36.7 72 18 121/66 97 Room Air 01/25/17 04:00 Room Air 01/25/17 00:00 Room Air 01/24/17 23:51 36.8 75 18 108/55 97 Room Air 01/24/17 20:00 Room Air 01/24/17 19:52 36.7 72 20 107/54 97 Room Air 01/24/17 16:39 95 01/24/17 16:10 Room Air 01/24/17 15:45 36.6 75 22 114/60 99 Room Air Physical Exam General Appearance: no apparent distress ENT: pharynx normal Neck: no JVD Respiratory/Chest: lungs clear Cardiovascular: regular rate, rhythm, no JVD, no murmur Abdomen: non tender, soft Extremities: + pedal edema (trace to 1+ bilat, improved compared to yesterday) Neurologic/Psych: alert, normal mood/affect, oriented x 3 Skin: no jaundice Laboratory Results Last 24 Hours Test 01/25/17 10:58 White Blood Count 3.24 K/uL Red Blood Count 2.53 M/uL Hemoglobin 8.4 g/dL Hematocrit 24.8 % Mean Corpuscular Volume 98.0 fL Mean Corpuscular Hemoglobin 33.2 pg Mean Corpuscular Hemoglobin Concent 33.9 g/dl RDW Standard Deviation 62.6 fL RDW Coefficient of Variation 17.1 % Platelet Count 51 K/uL Mean Platelet Volume 9.6 fL Sodium Level 138 mmol/L Potassium Level 3.8 mmol/L Chloride Level 107 mmol/L Carbon Dioxide Level 24 mmol/L Anion Gap 7.0 mmol/L Blood Urea Nitrogen 10 mg/dl Creatinine 0.71 mg/dl Est Creatinine Clear Calc Drug Dose 163.8 ml/min Estimated GFR () 130.4 Estimated GFR (Non- 112.5 BUN/Creatinine Ratio 14.6 Random Glucose 118 mg/dl Calcium Level 7.6 mg/dl Assessment and Plan Mr. Xiong is a 46 yr old male with ETOH/Hep C cirrhosis ascites, hx of hepatic encephalopathy. Plan: 1. No GI contraindication to discharge on same diuretic, xifaxin doses as prior to admission. 2. Low salt diet reviewed. 3. Continue OP GI f/u with Chanel Granado NP ATTESTATION: I have performed a history and physical examination of this patient and reviewed the electronic record. Specifically on physical examination there is mild abdominal distention. I have discussed the case with NANI Alexander. The above note reflects my findings, conclusions, and recommendations. Sandeep Lin MD
[2017-01-25 15:19] VITALS: BP 124/69; PULSE 72; TEMP 36.5; O2SAT 99
--- NOTE | 2017-01-26 14:48 | Discharge Summary ---
Discharge Summary Date of Service Jan 26, 2017. Discharge Summary Admission Date: Jan 23, 2017 at 14:06 Discharge Date: Jan 25, 2017 Discharge Disposition: Home Principal Diagnosis: Fluid Overload, Alcoholic Cirrhosis Secondary Diagnoses/Problems: Please see H&P Consultations: GI Medication Reconciliation New Medications: Pantoprazole (Pantoprazole Sodium) 40 Mg Tab 40 MG PO QAM for 30 Days, #30 TAB Continued Medications: Furosemide (Lasix) 20 Mg Tab 20 MG PO DAILY, TAB Ketoconazole (Topical) (Ketoconazole) 2 % Sha 1 APPLN TOP BID for 30 Days, #120 ML 3 Refills Lactulose (Chronulac) 10 Gm/15 Ml Syrp 10 GM PO QID Nadolol (Corgard) 20 Mg Tab 20 MG PO DAILY Rifaximin (Xifaxan) 550 Mg Tab 550 MG PO BID Spironolactone (Aldactone) 25 Mg Tab 50 MG PO BID for 30 Days, #120 TAB Triamcinolone Acet (Aristocort 0.1%) 90 Appln/30 Gm Cr 1 APPLN TOP BID for 30 Days Admission Information HPI (per Admitting provider): 46 yo Male with PMH of cirrhosis, Hep C, hx of ETOH (last alcohol drink was 2010 ), esophageal varices, hypertension was sent as a direct admission after he was seen at the [facility] Gastro office for follow up. He was seen by Trudy CARDOZA. Pt said that is being having worsening SOB associated with abdominal distention and lower extremities edema for the past week. He also has been feeling very tired. He said that he gains 23 lbs since discharge from the hospital back in mid December. Pt said that he has not been taking the lasix daily because it causes him to have cramp. He said that he has not been watching his fluid intake. denies any fever, chest pain, palpitation and dizziness. Past Medical/Surgical History Medical Problems: (1) Cirrhosis Status: Chronic (2) Depression Status: Chronic (3) Esophageal varices Status: Chronic (4) Hepatitis C Status: Chronic (5) HTN (hypertension) Status: Chronic Family History FH: CAD (coronary artery disease) FATHER MOTHER Social History Smoking Status: Never Smoker Alcohol Use: quits in 2010 Drug Use: none, other Immunizations History of Influenza Vaccine: Yes Influenza Vaccine Date: Jul 05, 2012 History of Tetanus Vaccine?: Yes Tetanus Immunization Date: Jun 04, 2008 Allergies Coded Allergies: No Known Allergies (Unverified , 12/11/16) Home Medications Scheduled Furosemide (Lasix), 20 MG PO BID Ketoconazole (Topical) (Ketoconazole), 1 APPLN TOP BID Lactulose (Chronulac), 10 GM PO QID Nadolol (Corgard), 20 MG PO DAILY Rifaximin (Xifaxan), 550 MG PO BID Spironolactone (Aldactone), 50 MG PO BID Triamcinolone Acet (Aristocort 0.1%), 1 APPLN TOP BID Review of Systems Constitutional: No chills, No fever Eyes: No eye pain, No worsening of vision ENT: No hearing loss, No nasal symptoms, No unusual epistaxis Respiratory: No cough, No sputum, No wheezing Cardiovascular: + edema, No chest pain Abdomen: No nausea, No pain Musculoskeletal: No joint pain Genitourinary - Male: No dysuria, No hematuria Neurologic: No memory loss Psychiatric: No depression symptoms Endocrine: No fatigue Hematologic / Lymphatic: No abnormal bleeding/bruising Integumentary: No itch, No rash Physical Exam Vital Signs Date Time Temp Pulse Resp B/P Pulse Ox O2 Delivery O2 Flow Rate FiO2 01/23/17 14:36 Room Air 01/23/17 14:34 36.5 89 20 150/72 100 Room Air General Appearance: WD/WN, no apparent distress Head: normocephalic, atraumatic Eyes: normal inspection, EOMI ENT: normal ENT inspection, hearing grossly normal Neck: supple, no JVD Respiratory/Chest: chest non-tender, lungs clear, no respiratory distress, no accessory muscle use Cardiovascular: regular rate, rhythm, no JVD, no murmur Abdomen/GI: normal bowel sounds, non tender, + distended Back: normal inspection, no CVA tenderness Extremities/Musculoskelatal: no calf tenderness, + pedal edema Neurologic/Psych: no motor/sensory deficits, alert, normal mood/affect Skin: warm/dry, no rash, + jaundice Diagnostics Laboratory Results Results Past 24 Hours Test 01/23/17 15:30 Range/Units White Blood Count 3.89 4.8-10.8 K/uL Red Blood Count 2.44 4.7-6.1 M/uL Hemoglobin 8.3 14.0-18.0 g/dL Hematocrit 24.3 42-52 % Mean Corpuscular Volume 99.6 80-100 fL Mean Corpuscular Hemoglobin 34.0 25-34 pg Mean Corpuscular Hemoglobin Concent 34.2 32-36 g/dl RDW Standard Deviation 65.1 36.4-46.3 fL RDW Coefficient of Variation 17.7 11.5-14.5 % Platelet Count 45 130-400 K/uL Mean Platelet Volume 10.2 7.4-10.4 fL Platelet Estimate DECREASED Prothrombin Time 17.3 9.0-12.0 SECONDS Prothromb Time International Ratio 1.6 0.9-1.1 Sodium Level 136 136-145 mmol/L Potassium Level 4.0 3.5-5.1 mmol/L Chloride Level 104 98-107 mmol/L Carbon Dioxide Level 23 21-32 mmol/L Anion Gap 9.0 3-11 mmol/L Blood Urea Nitrogen 8 7-18 mg/dl Creatinine 0.70 0.60-1.40 mg/dl Est Creatinine Clear Calc Drug Dose 168.8 ml/min Estimated GFR () 131.2 Estimated GFR (Non- 113.2 BUN/Creatinine Ratio 11.2 10-20 Random Glucose 104 70-99 mg/dl Calcium Level 7.2 8.5-10.1 mg/dl Total Bilirubin 7.2 0.2-1 mg/dl Aspartate Amino Transf (AST/SGOT) 92 15-37 U/L Alanine Aminotransferase (ALT/SGPT) 45 12-78 U/L Alkaline Phosphatase 278 45-117 U/L Ammonia 65.0 11-32 umol/L Total Protein 5.5 6.4-8.2 gm/dl Albumin 1.6 3.4-5.0 gm/dl Globulin 3.9 2.5-4.0 gm/dl Albumin/Globulin Ratio 0.4 0.9-2 Microbiology Results 01/23/17 Blood Culture, Received Pending 01/23/17 Blood Culture, Received Pending Impression Assessment and Plan Abdominal distention/ Ascites -Sent as a direct admission for increasing abdominal distension, lower extremity edema and SOB - Hx of HCV cirrhosis - Denies any fever and chills - will check cbc, cmp, PT/INR and ammonia level, blood cx and UA - will get cxr and u/s of abdomen for the ascites - Consider u/s guided paracentesis if able to after u/s result - Will consult GI ( He saw Trudy today in the office) - will start lasix 40 mg and spironolactone, lactulose once lab results - Will give albumin 25% x1 - Will put on fluid restriction Worsening SOB -Mostly related to Ascites - Will get CXR - Lasix and spironolactone - Monitor closely CHRONIC ANEMIA - CBC pending - will monitor closely - if hbg below 8, will transfuse prbc Hx THROMBOCYTOPENIA -secondary to Cirrhosis -No active bleeding noted - CBC pending -Monitor DVT prophylaxis SCDs due to recent episode of GI bleed in the last admission CODE STATUS FULL CODE Advanced Directives Existing Living Will: No Existing Power of Software Solutions Architect: Yes ( ) Resuscitation Status FULL RESUSCITATION VTE Prophylaxis VTE Risk Assessment Done? Y/N: Yes Risk Level: Moderate Given or contraindicated: SCD's Physical Exam (per Admitting): General Appearance: WD/WN, no apparent distress Head: normocephalic, atraumatic Eyes: normal inspection, EOMI ENT: normal ENT inspection, hearing grossly normal Neck: supple, no JVD Respiratory/Chest: chest non-tender, lungs clear, no respiratory distress, no accessory muscle use Cardiovascular: regular rate, rhythm, no JVD, no murmur Abdomen/GI: normal bowel sounds, non tender, + distended Back: normal inspection, no CVA tenderness Extremities/Musculoskelatal: no calf tenderness, + pedal edema Neurologic/Psych: no motor/sensory deficits, alert, normal mood/affect Skin: warm/dry, no rash, + jaundice Hospital Course Tense Ascites Abdominal distention with weight Gain,SOB and pain Secondary to HCV cirrhosis Denies any fever and chills Received IV Lasix and that worked very well Appreciate GI input-no plan to do paracentesis Start Lasix 40 mg and spironolactone, lactulose once lab results IV Albumin and low salt diet Clinically a lot better Discussed with GI 01/24/17 Can be discharged CHRONIC ANEMIA -Hb >8 -Remains stable THROMBOCYTOPENIA -secondary to Cirrhosis -No active bleeding noted -check Platelet today DVT prophylaxis SCDs due to recent episode of GI bleed in the last admission CODE STATUS FULL CODE DISPOSITION Likely home today Total time spent on discharge = 35 minutes This includes examination of the patient, discharge planning, medication reconciliation, and communication with other providers. Discharge Instructions Date of Service Jan 25, 2017. Admission Reason for Admission: Fluid Overload, Alcoholic Cirrhosis Discharge Discharge Diagnosis / Problem: Tense Ascites,Cirrhisis Discharge Goals Goal(s): Prevent Disease Progression Activity Recommendations Activity Limitations: resume your previous activity . Instructions / Follow-Up Instructions / Follow-Up Dr Lagunas on 01/31/17 at 10:50 AM Current Hospital Diet Patient's current hospital diet: Low Sodium Diet (2gm Na) Discharge Diet Recommended Diet: Low Sodium Diet (2gm Na) Pending Studies Studies pending at discharge: no Medical Emergencies . Who to Call and When: Medical Emergencies: If at any time you feel your situation is an emergency, please call 911 immediately. . Non-Emergent Contact Non-Emergency issues call your: Primary Care Provider . Past History Medical & Surgical History: (1) Decompensation of cirrhosis of liver (2) Shortness of breath (3) Hepatitis C (4) HTN (hypertension) (5) Depression (6) Esophageal varices . "Provider Documentation" section prepared by Darlene Rogers. VTE Core Measure Inpt VTE Proph given/why not?: SCD's <Electronically signed by Darlene Rogers M.D.> Signed: 01/25/17 1301 Additional Copies To Valeria Lagunas M.D.
== END 2017-01-25 18:02 | disposition home or self-care (01) | DRG 434 ==
LOC: ENRESERVDT → ENRESERVTM → C.MS2W 14:06 → C.MED 16:48
PROVIDERS: ADMIT Internal Medicine; ATTEND Internal Medicine
DX: K70.31 Alcoholic cirrhosis of liver with ascites (principal); I10 Essential (primary) hypertension; B19.20 Unspecified viral hepatitis C without hepatic coma; F32.9 Major depressive disorder, single episode, unspecified; Z82.49 Family history of ischemic heart disease and other diseases of the circulatory system; Z79.899 Other long term (current) drug therapy; R60.0 Localized edema; D64.9 Anemia, unspecified; D69.6 Thrombocytopenia, unspecified

== ENCOUNTER 2017-02-26 10:03 | Emergency (ER) | payer OTHER ==
[~2017-02-26 10:03] MED LIST changes: -CPR500 PO; -CRG/20 PO; +KETO2SHA TOP; -PRLSR20 PO; +PRT40 PO; +TRMCR130WC TOP
[2017-02-26 10:08] VITALS: Ht 180.3 cm
--- NOTE | 2017-02-26 10:33 | EMERGENCY ROOM VISIT NOTE ---
History Report prepared by Florence: Massiel Pardo Under the Supervision of: Dr. Garfield Beal M.D. First contact with patient: 10:13 Chief Complaint: SHORTNESS OF BREATH Stated Complaint: FLUID, SOB History of Present Illness The patient is a 46 year old male who presents to the Emergency Room with complaints of persistent shortness of breath that has worsened over the past week. He currently rates his discomfort as a 10/10 in severity. The patient states notes that he has had fluid build up on his lungs in the past. The patient notes a history of Cirrhosis of the liver. He denies ever having the fluid drained from his abdomen. Source of History: patient Onset: past week Position: other (global) Symptom Intensity: 10/10 Quality: other (shortness of breath) Timing: worsening, other (persistent) Note: Associated Symptoms: fluid build up Review of Systems See HPI for pertinent positives & negatives. A total of 10 systems reviewed and were otherwise negative. Past Medical & Surgical Medical Problems: (1) Cirrhosis (2) Decompensation of cirrhosis of liver (3) Depression (4) Esophageal varices (5) Hepatitis C (6) HTN (hypertension) (7) Shortness of breath Family History FH: CAD (coronary artery disease) FATHER MOTHER Social History Smoking Status: Never Smoker Alcohol Use: other Drug Use: none, other Marital Status: Housing Status: lives with family Occupation Status: unemployed Current/Historical Medications Scheduled Furosemide (Lasix), 20 MG PO DAILY Furosemide (Lasix), 1 TAB PO DAILY Lactulose (Chronulac), 10 GM PO QID Omeprazole (Prilosec), 20 MG PO DAILY Rifaximin (Xifaxan), 550 MG PO BID Spironolactone (Aldactone), 50 MG PO BID Scheduled PRN Oxycodone Immediate Rel Tab (Roxicodone Ir), 1-2 TAB PO Q4H PRN for Severe Pain Allergies Coded Allergies: Pantoprazole (Unverified Adverse Reaction, Intermediate, UPSETS STOMACH, ) Physical Exam Vital Signs Date Time Temp Pulse Resp B/P Pulse Ox O2 Delivery O2 Flow Rate FiO2 02/26/17 15:11 104 18 127/65 100 Room Air 02/26/17 14:04 104 20 146/67 100 Room Air 02/26/17 12:28 101 20 163/73 99 Room Air 02/26/17 12:08 36.7 101 22 137/74 100 Room Air 02/26/17 12:00 100 02/26/17 10:31 95 Room Air 02/26/17 10:08 36.4 104 20 167/81 95 Room Air Physical Exam GENERAL: Patient is a healthy-appearing well-nourished HEAD: Normocephalic atraumatic EYES: Ocular movements intact pupils equal and react to light OROPHARYNX mucous membranes are moist no exudates present no erythema or edema present NECK: Supple no nuchal rigidity CHEST: Good equal expansion LUNGS: Clear and equal to auscultation CARDIAC: Normal S1 and S2 ABDOMEN: Distended abdomen. BACK: No CVA tenderness EXTREMITIES: No pain upon palpation normal muscle strength in all groups no clubbing cyanosis or edema NEURO: Patient is following commands is answering questions appropriately. Alert and oriented x3 Cranial Nerves 2-12 grossly intact Medical Decision & Procedures ER Provider Diagnostic Interpretation: Radiology results as stated below per my review and radiologist interpretation: CHEST ONE VIEW PORTABLE CLINICAL HISTORY: Shortness of breath COMPARISON STUDY: 01/23/2017 FINDINGS: There is a suboptimal inspiration. The heart is the upper limits of normal in size. There is no failure. There is no focal pulmonary consolidation. There is minor basilar atelectasis.[ IMPRESSION: Suboptimal inspiration. No active disease in the chest. Electronically signed by: Brice Coello M.D. 02/26/2017 10:42 AM Dictated Date/Time: 02/26/2017 10:41 AM DIAGNOSTIC PARACENTESIS UNDER ULTRASOUND GUIDANCE CLINICAL HISTORY: Cirrhosis and ascites. Abdominal distention. COMPARISON STUDY: Abdominal CT dated 12/11/16. PROCEDURE: The risks, benefits, and alternatives to the procedure were discussed with the patient who voiced understanding. Written informed consent was obtained. There was insufficient fluid present for therapeutic paracentesis. Following real-time ultrasound localization of a suitable pocket of fluid in the left lower quadrant the abdomen was prepped and draped in the usual sterile fashion. The skin and soft tissues were anesthetized with 1% lidocaine. A 20-gauge needle was then inserted under ultrasound guidance and approximately 120 cc of clear straw-colored ascitic fluid was removed by manual suction. The procedure was well tolerated and without immediate complication. The fluid was sent for laboratory analysis. The patient returned to the emergency department in satisfactory condition. IMPRESSION: 1. Successful ultrasound-guided diagnostic paracentesis with removal of approximately 120 cc of ascitic fluid which was sent for laboratory analysis. 2. There was insufficient fluid for therapeutic paracentesis. Electronically signed by: Keny Bush M.D. 02/26/2017 1:56 PM Dictated Date/Time: 02/26/2017 1:53 PM Laboratory Results 02/26/17 11:45 Red Blood Count 2.77, Mean Corpuscular Volume 92.4, Mean Corpuscular Hemoglobin 31.8, Mean Corpuscular Hemoglobin Concent 34.4, Mean Platelet Volume 11.6, Neutrophils (%) (Auto) 73.8, Lymphocytes (%) (Auto) 14.5, Monocytes (%) (Auto) 8.9, Eosinophils (%) (Auto) 1.5, Basophils (%) (Auto) 0.3, Neutrophils # (Auto) 5.09, Lymphocytes # (Auto) 1.00, Monocytes # (Auto) 0.61, Eosinophils # (Auto) 0.10, Basophils # (Auto) 0.02 02/26/17 11:45 Test 02/26/17 00:00 02/26/17 11:45 02/26/17 12:50 Peritoneal Fluid Color YELLOW Peritoneal Fluid Appearance CLEAR Peritoneal Fluid WBC 617 /uL (0-300) Peritoneal Fluid RBC < 3000 /uL Peritoneal Fld Mononuclear WBCs (%) 39.9 % Peritoneal Fld Polynuclear WBCs (%) 60.1 % Peritoneal Fluid Total Protein 0.2 g/dl Peritoneal Fluid Albumin < 0.6 g/dl Peritoneal Fluid LDH 31 IU Peritoneal Fluid Glucose 131 mg/dl Peritoneal Fluid Amylase 10 U/L Peritoneal Fluid Lipase 25 U/L Peritoneal Fluid Triglycerides 17 mg/dl White Blood Count 6.89 K/uL (4.8-10.8) Red Blood Count 2.77 M/uL (4.7-6.1) Hemoglobin 8.8 g/dL (14.0-18.0) Hematocrit 25.6 % (42-52) Mean Corpuscular Volume 92.4 fL (80-100) Mean Corpuscular Hemoglobin 31.8 pg (25-34) Mean Corpuscular Hemoglobin Concent 34.4 g/dl (32-36) Platelet Count 75 K/uL (130-400) Mean Platelet Volume 11.6 fL (7.4-10.4) Neutrophils (%) (Auto) 73.8 % Lymphocytes (%) (Auto) 14.5 % Monocytes (%) (Auto) 8.9 % Eosinophils (%) (Auto) 1.5 % Basophils (%) (Auto) 0.3 % Neutrophils # (Auto) 5.09 K/uL (1.4-6.5) Lymphocytes # (Auto) 1.00 K/uL (1.2-3.4) Monocytes # (Auto) 0.61 K/uL (0.11-0.59) Eosinophils # (Auto) 0.10 K/uL (0-0.5) Basophils # (Auto) 0.02 K/uL (0-0.2) RDW Standard Deviation 59.8 fL (36.4-46.3) RDW Coefficient of Variation 17.5 % (11.5-14.5) Immature Granulocyte % (Auto) 1.0 % Immature Granulocyte # (Auto) 0.07 K/uL (0.00-0.02) Prothrombin Time 18.7 SECONDS (9.0-12.0) Prothromb Time International Ratio 1.7 (0.9-1.1) Anion Gap 6.0 mmol/L (3-11) Estimated GFR () 132.7 Estimated GFR (Non- 114.5 BUN/Creatinine Ratio 13.5 (10-20) Calcium Level 7.0 mg/dl (8.5-10.1) Total Bilirubin 5.2 mg/dl (0.2-1) Direct Bilirubin 4.1 mg/dl (0-0.2) Aspartate Amino Transf (AST/SGOT) 86 U/L (15-37) Alanine Aminotransferase (ALT/SGPT) 49 U/L (12-78) Alkaline Phosphatase 235 U/L (45-117) Ammonia 49.0 umol/L (11-32) Total Creatine Kinase 181 U/L (39-308) Creatine Kinase MB 7.2 ng/ml (0.5-3.6) Creatine Kinase MB Ratio 4.0 (0-3.0) Troponin I 0.016 ng/ml (0-0.045) Total Protein 5.9 gm/dl (6.4-8.2) Albumin 1.5 gm/dl (3.4-5.0) Lipase 269 U/L (73-393) Urine Color DK YELLOW Urine Appearance CLEAR (CLEAR) Urine pH 6.5 (4.5-7.5) Urine Specific [place] 1.012 (1.000-1.030) Urine Protein NEG (NEG) Urine Glucose (UA) NEG (NEG) Urine Ketones NEG (NEG) Urine Occult Blood NEG (NEG) Urine Nitrite NEG (NEG) Urine Bilirubin 1+ (NEG) Urine Urobilinogen NEG (NEG) Urine Leukocyte Esterase NEG (NEG) Labs reviewed by ED physician. Medications Administered Medications (Trade) Dose Ordered Sig/Jaren Route Start Time Stop Time Status Last Admin Dose Admin Furosemide (Lasix Inj) 40 mg NOW STAT IV 02/26/17 10:41 02/26/17 10:43 DC 02/26/17 12:07 40 MG Spironolactone (Aldactone Tab) 25 mg NOW STAT PO 02/26/17 10:41 02/26/17 10:43 DC 02/26/17 11:31 25 MG Albumin Human (Albumin 25%) 12.5 gm NOW STAT IV 02/26/17 10:52 02/26/17 10:55 DC 02/26/17 12:07 12.5 GM Hydromorphone HCl (Dilaudid Inj) 1 mg NOW STAT IV 02/26/17 12:19 02/26/17 12:20 DC 02/26/17 12:28 1 MG Ondansetron HCl (Zofran Inj) 4 mg NOW STAT IV 02/26/17 12:19 02/26/17 12:20 DC 02/26/17 12:28 4 MG ED Course 1014: Past medical records reviewed. The patient was evaluated in room B5. A complete history and physical examination was performed. 1041: Ordered Aldactone Tab 25 mg PO, Lasix Inj 40 mg IV. 1046: I discussed the patients case with Cathie Dinero, Gastroenterology PA-C. She states that the patients abdomen should be tapped. 1052: Ordered Albumin Human 12.5 gm IV. 1159: I discussed the patients case with Dr. Bush, Radiology. He will perform the paracentesis. 1219: Ordered Zofran Inj 4 mg IV, Dilaudid Inj 1 mg IV. 1400: Ordered Duoneb 12 ml INH. 1402: I reevaluated the patient and he is doing well. I discussed the exam findings with him and I discussed the treatment plan. He verbalized complete understanding and agreement. He will be evaluated for further treatment. 1403: I discussed the patients case with Ness Gee PA-C. She is going to evaluate the patient for further treatment. 1405: Ordered Vancomycin HCl 1000 mg/Sodium Chloride 270 ml @ 125 mls/hr IV, Rocephin Inj 1 gm IV. 1428: I discussed the patients case with Ness Ferrer. She would like the patient to be sent home due to his important liver transplant consult coming up. The patient is in agreement with this treatment plan. Medical Decision Differential diagnosis: Etiologies such as appendicitis, diverticulitis, PUD, biliary pathology, UTI, pancreatitis, obstruction, mesenteric ischemia, aortic pathology, infections, inflammatory bowel disease, renal colic, as well as others were entertained. This is a 46-year-old male who presents emergency department complaining of shortness of breath. I did discuss the case with gastroenterology on-call who asked if the patient could be sent for diagnostic paracentesis. This was performed by radiology. Upon arrival back to the emergency department the patient was given Lasix as well as spironolactone. He was given 1 dose of albumin. I did discuss the case with the hospitalist service who felt the patient was well enough to be discharged home. Patient was then discharged home to follow-up with gastroenterology in [place]. Consults Time Called: [phone] Consulting Physician: Corazon Aburto PA-C Returned Call: [phone] I discussed the patients case with Corazon Aburto PA-C. She states that the patients abdomen should be tapped. Impression Primary Impression: Shortness of breath Scribe Attestation The scribe's documentation has been prepared under my direction and personally reviewed by me in its entirety. I confirm that the note above accurately reflects all work, treatment, procedures, and medical decision making performed by me. Departure Information Dispostion Home / Self-Care Prescriptions Oxycodone Immediate Rel Tab (ROXICODONE IR) 5 Mg Tab 1-2 TAB PO Q4H Y for Severe Pain, #14 TAB Prov: Garfield Beal MD 02/26/17 Furosemide (LASIX) 40 Mg Tab 1 TAB PO DAILY for 10 Days, #10 TAB Prov: Garfield Beal MD 02/26/17 Referrals Valeria Lagunas M.D. (PCP) Forms HOME CARE DOCUMENTATION FORM, IMPORTANT VISIT INFORMATION, School Instructions, Work Instructions Patient Instructions My [facility] Additional Instructions Increase Lasix to 40 mg Follow up with Ness You have been examined and treated today on an emergency basis only. This is not a substitute for, or an effort to provide, complete comprehensive medical care. It is impossible to recognize and treat all injuries or illnesses in a single emergency department visit. It is therefore important that you follow up closely with Dr Lagunas. Call as soon as possible for an appointment. Thank you for your time and consideration. I look forward to speaking with you again soon. Please don't hesitate to call us if you have any questions.
[2017-02-26] MEDS ORDERED: FUROSEMIDE 40 MG/4 ML VIAL IV STA (10:41)
[2017-02-26] MEDS ORDERED: SPIRONOLACTONE 25 MG TAB PO STA (10:41)
--- NOTE | 2017-02-26 10:43 | DIAGNOSTIC IMAGING REPORT ---
CHEST ONE VIEW PORTABLE CLINICAL HISTORY: Shortness of breath COMPARISON STUDY: 01/23/2017 FINDINGS: There is a suboptimal inspiration. The heart is the upper limits of normal in size. There is no failure. There is no focal pulmonary consolidation. There is minor basilar atelectasis.[ IMPRESSION: Suboptimal inspiration. No active disease in the chest. Electronically signed by: Brice Coello M.D. 02/26/2017 10:42 AM Dictated Date/Time: 02/26/2017 10:41 AM
[2017-02-26] MEDS ORDERED: ALBUMIN HUMAN 25% 12.5 GM/50 ML VIAL IV STA (10:52)
[2017-02-26] MEDS ORDERED: PRLSR20 PO (11:10)
[2017-02-26 12:06] LABS: HEMATOCRIT 25.6 % (42-52); MEAN CELL VOLUME 92.4 fL (80-100); MEAN CORPUSCULAR HEMOGLOBIN 31.8 pg (25-34); MEAN CORPUSCULAR HGB CONC 34.4 g/dl (32-36); RED BLOOD COUNT 2.77 M/uL (4.7-6.1); WHITE BLOOD COUNT 6.89 K/uL (4.8-10.8)
[2017-02-26 12:08] VITALS: TEMP 36.7
[2017-02-26 12:09] LABS: MEAN PLATELET VOLUME 11.6 fL (7.4-10.4); PLATELET COUNT 75 K/uL (130-400)
[2017-02-26 12:15] LABS: INR 1.7 (0.9-1.1); PROTHROMBIN TIME (PATIENT) 18.7 SECONDS (9.0-12.0)
[2017-02-26] MEDS ORDERED: ONDANSETRON INJ 2 MG/ML 2 ML VIAL IV STA (12:19)
[2017-02-26] MEDS ORDERED: HYDROmorphone INJ 1 MG/ML SYR IV STA (12:19)
[2017-02-26 12:49] LABS: BASO % 0.3 %; BASO ABS # 0.02 K/uL (0-0.2); COMPLETE YES; EOS % 1.5 %; LYMPH % 14.5 %; MONO % 8.9 %; NEUT % 73.8 %
[2017-02-26 13:05] LABS: URINE APPEARANCE CLEAR (CLEAR); URINE COLOR DK YELLOW; URINE NITRITE NEG (NEG); URINE PH 6.5 (4.5-7.5); URINE SPECIFIC GRAVITY 1.012 (1.000-1.030); UROBILINOGEN NEG (NEG)
[2017-02-26 13:08] LABS: MANUAL MICROSCOPIC REQUIRED? NO; REVIEW REQ? NO; URINE BILIRUBIN 1+ (NEG)
[2017-02-26 13:23] LABS: BLOOD UREA NITROGEN 9 mg/dl (7-18); BUN/CREATININE RATIO 13.5 (10-20); CARBON DIOXIDE 22 mmol/L (21-32); CHLORIDE 102 mmol/L (98-107); CREATININE 0.68 mg/dl (0.60-1.40); GLUCOSE 119 mg/dl (70-99); POTASSIUM 4.7 mmol/L (3.5-5.1); SODIUM 130 mmol/L (136-145)
[2017-02-26 13:35] LABS: ALT/SGPT 49 U/L (12-78); AST/SGOT 86 U/L (15-37)
--- NOTE | 2017-02-26 13:58 | DIAGNOSTIC IMAGING REPORT ---
DIAGNOSTIC PARACENTESIS UNDER ULTRASOUND GUIDANCE CLINICAL HISTORY: Cirrhosis and ascites. Abdominal distention. COMPARISON STUDY: Abdominal CT dated 12/11/16. PROCEDURE: The risks, benefits, and alternatives to the procedure were discussed with the patient who voiced understanding. Written informed consent was obtained. There was insufficient fluid present for therapeutic paracentesis. Following real-time ultrasound localization of a suitable pocket of fluid in the left lower quadrant the abdomen was prepped and draped in the usual sterile fashion. The skin and soft tissues were anesthetized with 1% lidocaine. A 20-gauge needle was then inserted under ultrasound guidance and approximately 120 cc of clear straw-colored ascitic fluid was removed by manual suction. The procedure was well tolerated and without immediate complication. The fluid was sent for laboratory analysis. The patient returned to the emergency department in satisfactory condition. IMPRESSION: 1. Successful ultrasound-guided diagnostic paracentesis with removal of approximately 120 cc of ascitic fluid which was sent for laboratory analysis. 2. There was insufficient fluid for therapeutic paracentesis. Electronically signed by: Keny Bush M.D. 02/26/2017 1:56 PM Dictated Date/Time: 02/26/2017 1:53 PM
[2017-02-26] MEDS ORDERED: ALBUT/IPRATROP 3MG/0.5MG NEB 3 ML VIAL INH ONE (14:00)
[2017-02-26] MEDS ORDERED: VANCOMYCIN INJ 1,000 MG in SODIUM CHLORIDE 0.9% 250ML 250 ML IV STA (14:05)
[2017-02-26] MEDS ORDERED: CEFTRIAXONE SOD INJ 1 GM ADDVIAL IV STA (14:05)
[2017-02-26] MEDS ORDERED: FURO40TA3 PO (14:30)
[2017-02-26] MEDS ORDERED: OXYC-57 PO (14:31)
[2017-02-26] MEDS ORDERED: OXYC1TAB3 PO (14:31)
[2017-02-26 14:40] LABS: ALKALINE PHOSPHATASE 235 U/L (45-117)
[2017-02-26 15:11] VITALS: BP 127/65; PULSE 104; O2SAT 100
[2017-02-26 15:51] LABS: PERIT FL WBC 617 /uL (0-300); PERITONEAL FLUID RBC < 3000 /uL
[2017-03-11] MEDS ORDERED: ULT50X PO (12:29)
[2017-03-11] MEDS ORDERED: LCTX PO (12:29)
[2017-03-11] MEDS ORDERED: CPR500 PO (12:29)
== END 2017-02-26 15:34 | disposition home or self-care (01) ==
LOC: C.EDB 10:04
DX: R06.02 Shortness of breath (principal); L03.90 Cellulitis, unspecified; K74.60 Unspecified cirrhosis of liver; F32.9 Major depressive disorder, single episode, unspecified; I10 Essential (primary) hypertension; Z82.49 Family history of ischemic heart disease and other diseases of the circulatory system; I85.00 Esophageal varices without bleeding

== ENCOUNTER 2017-03-05 19:35 | Inpatient (IN) | payer OTHER ==
[~2017-03-05] VITALS: Ht 180.3 cm; Wt 123.7 kg
[~2017-03-05 19:35] MED LIST changes: +FURO40TA3 PO; -KETO2SHA TOP; +OXYC-57 PO; +OXYC1TAB3 PO; +PRLSR20 PO; -PRT40 PO; -TRMCR130WC TOP
[2017-03-05] MEDS ORDERED: IBUP-1451 PO (19:53)
[2017-03-05] MEDS ORDERED: MCRK20 PO (19:53)
[2017-03-05] MEDS ORDERED: HYDROmorphone INJ 1 MG/ML SYR IV STA (20:46)
[2017-03-05] MEDS ORDERED: PIPERACILLIN/TAZOBACTAM 4.5 GM/100ML D5W IV STA (20:52)
[2017-03-05] MEDS ORDERED: VANCOMYCIN INJ 2,500 MG in SODIUM CHLORIDE 0.9% 500ML 500 ML IV STA (20:52)
--- NOTE | 2017-03-05 21:13 | EMERGENCY ROOM VISIT NOTE ---
History Report prepared by Florence: Iglesia Escobar Under the Supervision of: Dr. Marianna Valdes M.D. First contact with patient: 20:36 Chief Complaint: RESPIRATORY PROBLEMS Stated Complaint: FLUID Nursing Triage Summary: Pt reports increased swelling of legs, scrotum and abdomen and difficulty breathing. Pt reports he was here last week and they gave him Lasix and Albumin but symptoms are getting worse. Pt is waiting on liver transplant. History of Present Illness The patient is a 46 year old male who presents to the Emergency Room with complaints of worsening swelling in his abdomen and legs starting earlier tonight. The legs have become red and are now weeping. The patient states that the last time his abdomen was drained was a week ago. The patient's sister states that the patient is going to see his PCP next week for labs and a CT scan. The patient states that he is trying to get on a transplant list for a liver d/t alcoholic cirrhosis and Hep C. The patient denies any fever, vomiting , or diarrhea. Source of History: patient, spouse/significant other Onset: earlier tonight Position: abdomen, leg (bilateral) Quality: other (swelling) Timing: worsening Associated Symptoms: No diarrhea, No fevers, No vomiting Review of Systems See HPI for pertinent positives & negatives. A total of 10 systems reviewed and were otherwise negative. Past Medical & Surgical Medical Problems: (1) Cirrhosis (2) Decompensation of cirrhosis of liver (3) Depression (4) Esophageal varices (5) Hepatitis C (6) HTN (hypertension) (7) PUD (peptic ulcer disease) (8) Shortness of breath (9) UGIB (upper gastrointestinal bleed) Surgical Problems: (1) H/O esophagogastroduodenoscopy (2) History of back surgery (3) S/P tonsillectomy and adenoidectomy Family History FH: CAD (coronary artery disease) FATHER MOTHER Social History Smoking Status: Never Smoker Alcohol Use: other Drug Use: none, other Marital Status: Housing Status: lives with family Occupation Status: unemployed Current/Historical Medications Scheduled Furosemide (Lasix), 20 MG PO DAILY Furosemide (Lasix), 1 TAB PO DAILY Lactulose (Chronulac), 10 GM PO QID Omeprazole (Prilosec), 20 MG PO DAILY Potassium Chloride (Klor-Con M20), 20 MEQ PO DAILY Rifaximin (Xifaxan), 550 MG PO BID Spironolactone (Aldactone), 50 MG PO BID Scheduled PRN Ibuprofen Tab (Motrin), 800 MG PO Q8H PRN for Pain Allergies Coded Allergies: No Known Allergies (Unverified , 03/06/17) Physical Exam Vital Signs Date Time Temp Pulse Resp B/P Pulse Ox O2 Delivery O2 Flow Rate FiO2 03/06/17 00:20 36.7 106 18 125/59 99 03/06/17 00:20 36.7 104 18 125/59 99 03/06/17 00:09 106 03/06/17 00:05 36.8 106 18 105/54 99 03/05/17 23:59 36.6 105 16 115/56 100 03/05/17 23:57 36.6 108 20 115/56 100 03/05/17 23:08 110 20 130/59 100 Room Air 03/05/17 21:40 105 22 131/57 100 Room Air 03/05/17 20:28 102 03/05/17 20:04 99 Room Air 03/05/17 19:38 36.8 84 22 145/55 100 Room Air Physical Exam Vital signs reviewed. General: Chronically ill appearing male, in no significant distress. HEENT: No scleral icterus, PERRLA, neck supple. Atraumatic. Cardiovascular: Regular rate and rhythm, no extra sounds. Pulmonary: Clear to auscultation bilaterally, increased work of breathing. Abdomen: Markedly distended.Soft, nontender, positive bowel sounds. Rectal: Guaiac positive brown stool, normal rectal mucosa Musculoskeletal: Pitting edema in bilateral lower extremities. Bilateral erythema with superimposed are to the proximal calf/little area that is warm, open , and weeping. Atraumatic Neurologic: Patient awake alert and oriented x 3, full strength in all 4 extremities. Cranial nerves 2 through 12 grossly intact. Skin: Jaundiced, warm, dry Medical Decision & Procedures ER Provider Diagnostic Interpretation: Radiology results as stated below per my review and radiologist interpretation: US VENOUS BILATERAL LOWER EXTREMITIES: Flow visualized within only 1 of 2 right peroneal veins; unable to assess for compressibility given overlying soft tissue swelling. Remaining sampled bilateral lower extremity deep veins unremarkable. Comparison study dates 06/22/2015 Radiologist: Thuan Franco M.D. Laboratory Results Test 03/05/17 21:28 03/05/17 21:35 03/06/17 00:00 Polychromasia 1+ Target Cells 1+ Schistocytes 1+ Prothrombin Time 15.9 SECONDS (9.0-12.0) Prothromb Time International Ratio 1.5 (0.9-1.1) Activated Partial Thromboplast Time 37.0 SECONDS (21.0-31.0) Partial Thromboplastin Ratio 1.4 Magnesium Level 1.8 mg/dl (1.8-2.4) Bedside Lactic Acid Venous 2.49 mmol/L (0.90-1.70) Urine Random Sodium 35 mEq/L Laboratory results per my review. Medications Administered Medications (Trade) Dose Ordered Sig/Jaren Route Start Time Stop Time Status Last Admin Dose Admin Hydromorphone HCl 1 mg 1 mg NOW STAT IV 03/05/17 20:46 03/05/17 20:48 DC 03/05/17 22:07 1 MG Vancomycin HCl/ Sodium Chloride (Vancomycin Inj/ Nss 500ml) 550 ml @ 200 mls/hr ONE STAT IV 03/05/17 20:52 03/05/17 23:36 DC 03/05/17 23:07 200 MLS/HR Piperacillin Sod/ Tazobactam Sod 4.5 gm 4.5 gm NOW STAT IV 03/05/17 20:52 03/05/17 20:55 DC 03/05/17 22:08 4.5 GM Pantoprazole Sodium/Syringe (Protonix Inj/ Syringe) 20 ml @ 5 mls/min NOW STAT IV 03/05/17 23:54 03/05/17 23:57 DC 03/06/17 00:01 5 MLS/MIN Procedure 18 gauge external jugular peripheral IV was placed in the left neck. ECG Indication: other (swelling) Rate (beats per minute): 102 Rhythm: sinus tachycardia Findings: other (likely previous anterior infarct, poor quality baseline) ED Course 2041: Past medical records reviewed. The patient was evaluated in room C11. A complete history and physical examination was performed. 2045: Dilaudid Inj 1mg IV 2051: Zosyn 4.5gm IV, Vancomycin HCl 2500 mg/ Sodium Chloride 550ml @ 200mls/hr IV 2234: I reevaluated the patient, and he was resting comfortably 3: I discussed the patient's case with Dr. Malin. He is going to evaluate the patient for further treatment Medical Decision Differentials include: Ascites, acute on chronic liver failure, cellulitis, sepsis, DVT, pneumonia, CHF, pleural effusion. This pt was evaluated and appeared to be in some discomfort. IV access was obtained and lab work was drawn. IV team could only place a small line, therefore an 18 g PERIPHERAL IV was placed in the L EJ without difficulty. Pt was medicated with IV morphine and zofran. Lab work is as expected for ESLD. H /H is markedly low, stool guaiac is positive. Pt is suffering from a GIB as well. He states an allergy to IV protonix. Pt was type and crossed for 2 units and consented for transfusion. US BLE are negative for DVT. I discussed the case with the hospitalist service for further management. They have agreed to evaluate pt. He is aware of the plan and agree. Consults Time Called: [phone] Consulting Physician: Dr. Malin Returned Call: [phone] I discussed the patient's case with Dr. Malin. He is going to evaluate the patient for further treatment Impression Primary Impression: Acute GI bleeding Additional Impressions: Anemia Hyperammonemia End stage liver disease Scribe Attestation The scribe's documentation has been prepared under my direction and personally reviewed by me in its entirety. I confirm that the note above accurately reflects all work, treatment, procedures, and medical decision making performed by me. Departure Information Dispostion Being Evaluated By Hospitalist Referrals Valeria Lagunas M.D. (PCP) Patient Instructions My [facility] Problem Qualifiers
[2017-03-05 21:57] LABS: INR 1.5 (0.9-1.1); PARTIAL THROMBOPLASTIN RATIO 1.4; PROTHROMBIN TIME (PATIENT) 15.9 SECONDS (9.0-12.0)
[2017-03-05 22:04] LABS: HEMATOCRIT 19.5 % (42-52); MEAN CELL VOLUME 92.9 fL (80-100); MEAN CORPUSCULAR HEMOGLOBIN 31.9 pg (25-34); MEAN CORPUSCULAR HGB CONC 34.4 g/dl (32-36); MEAN PLATELET VOLUME 9.9 fL (7.4-10.4); PLATELET COUNT 89 K/uL (130-400); WHITE BLOOD COUNT 5.84 K/uL (4.8-10.8)
[2017-03-05 22:06] LABS: ALT/SGPT 40 U/L (12-78); BLOOD UREA NITROGEN 22 mg/dl (7-18); BUN/CREATININE RATIO 22.6 (10-20); CARBON DIOXIDE 21 mmol/L (21-32); CHLORIDE 101 mmol/L (98-107); CREATININE 0.95 mg/dl (0.60-1.40); GLUCOSE 112 mg/dl (70-99); MAGNESIUM 1.8 mg/dl (1.8-2.4); SODIUM 131 mmol/L (136-145)
[2017-03-05 22:08] LABS: ALKALINE PHOSPHATASE 191 U/L (45-117); AST/SGOT 72 U/L (15-37)
[2017-03-05 22:13] LABS: COMPLETE YES; EOS % 2.1 %; IG% 0.3 %; LYMPH % 18.3 %; LYMPH ABS # 1.07 K/uL (1.2-3.4); MONO % 7.5 %; NEUT % 71.8 %; POLYCHROMASIA 1+; SCHISTOCYTES 1+; TARGET CELLS 1+
[2017-03-05] MEDS ORDERED: PANTOprazole INJ 80 MG in SYRINGE 0 ML IV STA (23:54)
[2017-03-05 23:57] VITALS: BP 115/56; PULSE 108; TEMP 36.6; O2SAT 100
[2017-03-06] VITALS (22 sets, daily range): BP systolic 105–144; BP diastolic 45–71; PULSE 94–111; TEMP 36.4–37.1; O2SAT 96–100; Ht 180.3 cm; Wt 123.7 kg
[2017-03-06] MEDS ORDERED: FUROSEMIDE 40 MG/4 ML VIAL IV STA (01:06)
[2017-03-06] MEDS ORDERED: ACETAMINOPHEN 325 MG TAB PO PRN (01:30)
[2017-03-06] MEDS ORDERED: TRAMADOL HCL 50 MG TAB PO PRN (01:30)
[2017-03-06] MEDS ORDERED: NITROGLYCERIN 0.4 MG SL PER TAB CHARGE SL PRN (01:30)
[2017-03-06] MEDS ORDERED: LACTULOSE SYRUP 20 GM/30 ML UDC PO ONE (01:30)
[2017-03-06] MEDS ORDERED: RIFAXIMIN TAB 550 MG TAB PO ONE (01:30)
[2017-03-06] MEDS: MoRPHine SULFATE 4 MG/ML 1 ML CARP\\VIAL IV PRN ×2 (03:01→15:59)
[2017-03-06] MEDS ORDERED: MAGNESIUM SULFATE 1GM / D5W 1 GM in PREMIXED IN D5W 100 ML IV STA (04:37)
[2017-03-06 06:27] LABS: URINE APPEARANCE CLOUDY (CLEAR); URINE COLOR DK YELLOW; URINE EPITHELIAL CELL AUTO >30 /lpf (0-5); URINE NITRITE NEG (NEG); URINE PH 5.5 (4.5-7.5); URINE SPECIFIC GRAVITY 1.016 (1.000-1.030); UROBILINOGEN NEG (NEG); ZZUR CULT IF INDIC CLEAN CATCH NO
[2017-03-06 06:34] LABS: MANUAL MICROSCOPIC REQUIRED? NO; REVIEW REQ? YES; URINE BILIRUBIN 1+ (NEG)
[2017-03-06 06:35] LABS: HEMATOCRIT 24.3 % (42-52); MEAN CELL VOLUME 91.7 fL (80-100); MEAN CORPUSCULAR HEMOGLOBIN 31.7 pg (25-34); MEAN CORPUSCULAR HGB CONC 34.6 g/dl (32-36); RED BLOOD COUNT 2.65 M/uL (4.7-6.1); WHITE BLOOD COUNT 6.12 K/uL (4.8-10.8)
--- NOTE | 2017-03-06 06:37 | HISTORY & PHYSICAL EXAMINATION ---
DATE OF ADMISSION: 03/06/2017 PRIMARY CARE DOCTOR: Dr. Lagunas. Hx obtained from px and records. CHIEF COMPLAINT: Abdominal distention, pain, and leg swelling. HISTORY OF PRESENT ILLNESS: Medical history significant for HTN, cirrhosis secondary to HCV sp treatment, history of esophageal varices/gastritis as per records, past alcohol abuse, chronic anemia (baseline hemoglobin of 8), chronic hyponatremia. Recent confinement recent January 2017 for tense ascites. Patient treated with diuretics. Px seen at the ER last week for shortness of breath and ascites. Patient had US guided dx/tx paracentesis. Peritoneal WBC noted to be 617. Px subsequently discharged. from the ER. Px admits to increasing abdominal distention w/ lower achy abd pain, leg swelling over the last few days. Patient admits to missing a few doses of home diuretics from time to time. Transient bloody/ black stools about 2 days ago. Formed brown stools all of yesterday. No nausea, no emesis, no fever, no chills. No chest pain. Some SOB, no unusual cough sx. Patient admits to intermittent intake of Advil about 2 pills a day for some tooth ache the last few days. At the Emergency Room, the patient received vancomycin and Zosyn. MEDICAL HISTORY: As above. EGD from June 2015 showed small esophageal varices, small hiatal hernia and gastritis. SURGERIES: He has had tonsillectomy and adenectomy. He also had back surgery. HOME MEDICATIONS: Include Lasix, lactulose, Prilosec, Klor-Con, and Xifaxan. ALLERGIES: No known drug allergies. FAMILY HISTORY: Heart disease. PERSONAL AND SOCIAL HISTORY: Nonsmoker, past alcohol abuse, disabled. REVIEW OF SYSTEMS: As per HPI, all other ROS negative. PHYSICAL EXAMINATION: VITAL SIGNS: Blood pressure was noted to be 120/80, pulse rate 106, RR 18, temperature 36.7, sats 100 on room air. GENERAL: Noted to be chronically ill, looks older for stated age, no respiratory distress, occasionally lethargic. obese SKIN: pallor, jaundice. HEENT: Pale palpebral conjunctivae, dry mucosa. NECK: Short neck. LUNGS: Decreased breath sounds. HEART: Tachycardic. ABDOMEN: hypogastric tenderness, some distention. no overt fluid wave EXTREMITIES: Minimal bilateral lower extremity edema, no tenderness. NEUROLOGIC: No gross focality except for occasional lethargy. LABORATORY DATA: Hemoglobin was noted to be 6.7, white blood cell count 5, and platelets 89. Sodium 131, potassium 4, chloride 101, CO2 of 21, BUN 20, creatinine 0.9, and glucose 112. Ammonia level was noted to be 69. ASSESSMENT: 1. Decompensated cirrhosis. hx HCV sp tx past ETOH abuse Upper gastrointestinal bleeding history of gastritis, history of esophageal varices on 2014 EGd, no active symptoms the last 24hrs hemoglobin drop from baseline possibly related to OTC NSAID intake, recurrent ascites px admits to missing a few doses of home diuretics possible spontaneous bacterial peritonitis w/ abd pain sx no sepsis. mild hepatic encephalopathy 2. Hypertension, stable. 3. Chronic hyponatremia 2 to cirrhosis. PLAN: PCU serial HH, transfuse pRBC to maintain hemoglobin greater than 7. IV PPI b.i.d. for now. GI consult RE UGIB, ascites Patient counselled about hazards of OTC NSAID use given liver disease and previous EGD findings. diuretic tx diagnostic/ therapeutic paracentesis IV Ceftriaxone for possible SBP for now. (Cefotaxime not available) facilitate Lactulose, Rifaximin DVT prophylaxis, SCDs RE thrombocytopenia. Full code. MTDD
--- NOTE | 2017-03-06 06:37 | DIAGNOSTIC IMAGING REPORT ---
BILATERAL LOWER EXTREMITY VENOUS DOPPLER HISTORY: Pain. Edema. BLE edema, COMPARISON STUDY: None. FINDINGS: There is normal compressibility, flow, and augmentation within the bilateral lower extremity deep venous systems. IMPRESSION: No DVT within the right or left lower extremity. Electronically signed by: Eddie Cristina M.D. 03/06/2017 6:35 AM Dictated Date/Time: 03/06/2017 6:35 AM
[2017-03-06 06:44] LABS: MEAN PLATELET VOLUME 8.9 fL (7.4-10.4); PLATELET COUNT 54 K/uL (130-400)
[2017-03-06 07:13] LABS: BASO % 0.2 %; BASO ABS # 0.01 K/uL (0-0.2); COMPLETE YES; IG% 0.5 %; LYMPH % 11.3 %; LYMPH ABS # 0.69 K/uL (1.2-3.4); MONO % 5.9 %; NEUT % 81.1 %
[2017-03-06 07:20] LABS: BUN/CREATININE RATIO 20.2 (10-20); CREATININE 1.1 mg/dl (0.60-1.40); POTASSIUM 3.9 mmol/L (3.5-5.1)
--- NOTE | 2017-03-06 07:22 | DIAGNOSTIC IMAGING REPORT ---
CHEST ONE VIEW PORTABLE CLINICAL HISTORY: sob dyspnea COMPARISON STUDY: 02/26/2017 FINDINGS: Minimal poorly defined parenchymal infiltrate left base. Lungs otherwise appear clear. Diaphragms smooth. IMPRESSION: Minimal poorly defined parenchymal infiltrate left base. Electronically signed by: Eddie Cristina M.D. 03/06/2017 7:20 AM Dictated Date/Time: 03/06/2017 7:20 AM
[2017-03-06] MEDS: CEFTRIAXONE SOD INJ 1 GM in DEXTROSE 5% ADD-VANTAGE 50ML 50 ML IV SCH (08:44)
[2017-03-06] MEDS: PANTOprazole INJ 40 MG in SYRINGE 0 ML IV SCH ×2 (08:44→22:11)
[2017-03-06] MEDS: FUROSEMIDE 40 MG TAB PO SCH (08:45)
[2017-03-06] MEDS: SPIRONOLACTONE 25 MG TAB PO SCH ×2 (08:45→15:58)
[2017-03-06] MEDS: LACTULOSE SYRUP 20 GM/30 ML UDC PO SCH ×3 (08:46→20:59)
[2017-03-06] MEDS: RIFAXIMIN TAB 550 MG TAB PO SCH ×2 (08:46→20:58)
[2017-03-06] MEDS: POTASSIUM CHLORIDE 20 MEQ TABCR PO SCH (08:46)
--- NOTE | 2017-03-06 10:23 | Progress Note ---
Internal Med Progress Note Date of Service: March 06, 2017. Provider Documentation: SUBJECTIVE: The patient was seen and examined Lying in bed comfortably Complains of some abdominal discomfort Nausea but no vomiting OBJECTIVE: Vital Signs-as noted below Exam: General-no distress at rest Eyes-normal ENT-normal Neck-supple Lungs-decreased breath sound bilaterally No crackles Heart-Regular,no murmur appreciated Abdomen-Distended,soft ,mildly tender ,bowel sound present Extremities-Trace edema bilaterally Neuro-AAOx3 No hepatic Flap Lab data as noted below. ASSESSMENT & PLAN: Acute Decompensated Cirrhosis With increasing Ascites No Encephalopathy H/O HCV sp treatment ,past ETOH abuse Possible spontaneous bacterial peritonitis w/ abd pain sx,No sepsis. Continue Diuresis Started on IV Ceftriaxone Facilitate Lactulose, Rifaximin GI consulted Possible Paracentesis today Upper gastrointestinal bleeding history of gastritis, history of esophageal varices on 2014 EGd, No active symptoms the last 24hrs Has been having Black stools Possibly related to OTC NSAID intake, Hb dropped and received 2 units of PRBC IV PPI b.i.d. for now. GI consult RE UGIB, ascites Hb >8 on 03/06/17 Hypertension, Stable. Chronic hyponatremia 2 to cirrhosis. DVT prophylaxis, SCDs RE thrombocytopenia. Full code. DISPOSITION Awaited Vital Signs: Date Time Temp Pulse Resp B/P Pulse Ox O2 Delivery O2 Flow Rate FiO2 03/06/17 07:45 36.5 100 18 124/46 100 Room Air 03/06/17 05:30 36.5 96 20 116/59 100 03/06/17 05:00 36.6 100 15 115/71 100 03/06/17 04:00 98 Room Air 03/06/17 04:00 36.5 99 16 115/60 98 03/06/17 03:30 36.5 95 18 130/71 100 03/06/17 03:14 36.4 94 18 128/57 100 03/06/17 02:30 36.5 102 20 119/57 100 03/06/17 01:42 36.5 101 20 122/70 100 Room Air 03/06/17 01:32 107 20 113/58 100 Room Air 03/06/17 01:30 36.7 102 20 113/58 100 03/06/17 00:50 36.8 106 20 121/54 100 03/06/17 00:20 36.7 106 18 125/59 99 03/06/17 00:20 36.7 104 18 125/59 99 03/06/17 00:09 106 03/06/17 00:05 36.8 106 18 105/54 99 03/05/17 23:59 36.6 105 16 115/56 100 03/05/17 23:57 36.6 108 20 115/56 100 03/05/17 23:08 110 20 130/59 100 Room Air 03/05/17 21:40 105 22 131/57 100 Room Air 03/05/17 20:28 102 03/05/17 20:04 99 Room Air 03/05/17 19:38 36.8 84 22 145/55 100 Room Air Lab Results: Results Past 24 Hours Test 03/05/17 21:28 03/05/17 21:35 03/06/17 02:30 03/06/17 06:20 Range/Units White Blood Count 5.84 6.12 4.8-10.8 K/uL Red Blood Count 2.10 2.65 4.7-6.1 M/uL Hemoglobin 6.7 8.4 14.0-18.0 g/dL Hematocrit 19.5 24.3 42-52 % Mean Corpuscular Volume 92.9 91.7 80-100 fL Mean Corpuscular Hemoglobin 31.9 31.7 25-34 pg Mean Corpuscular Hemoglobin Concent 34.4 34.6 32-36 g/dl Platelet Count 89 54 130-400 K/uL Mean Platelet Volume 9.9 8.9 7.4-10.4 fL Neutrophils (%) (Auto) 71.8 81.1 % Lymphocytes (%) (Auto) 18.3 11.3 % Monocytes (%) (Auto) 7.5 5.9 % Eosinophils (%) (Auto) 2.1 1.0 % Basophils (%) (Auto) 0.0 0.2 % Neutrophils # (Auto) 4.19 4.97 1.4-6.5 K/uL Lymphocytes # (Auto) 1.07 0.69 1.2-3.4 K/uL Monocytes # (Auto) 0.44 0.36 0.11-0.59 K/uL Eosinophils # (Auto) 0.12 0.06 0-0.5 K/uL Basophils # (Auto) 0.00 0.01 0-0.2 K/uL RDW Standard Deviation 63.3 59.6 36.4-46.3 fL RDW Coefficient of Variation 18.4 17.7 11.5-14.5 % Immature Granulocyte % (Auto) 0.3 0.5 % Immature Granulocyte # (Auto) 0.02 0.03 0.00-0.02 K/uL Polychromasia 1+ Target Cells 1+ Schistocytes 1+ Prothrombin Time 15.9 9.0-12.0 SECONDS Prothromb Time International Ratio 1.5 0.9-1.1 Activated Partial Thromboplast Time 37.0 21.0-31.0 SECONDS Partial Thromboplastin Ratio 1.4 Sodium Level 131 132 136-145 mmol/L Potassium Level 4.0 3.9 3.5-5.1 mmol/L Chloride Level 101 102 98-107 mmol/L Carbon Dioxide Level 21 22 21-32 mmol/L Anion Gap 9.0 8.0 3-11 mmol/L Blood Urea Nitrogen 22 22 7-18 mg/dl Creatinine 0.95 1.10 0.60-1.40 mg/dl Estimated GFR () 110.8 92.8 Estimated GFR (Non- 95.6 80.1 BUN/Creatinine Ratio 22.6 20.2 10-20 Random Glucose 112 110 70-99 mg/dl Calcium Level 7.0 7.0 8.5-10.1 mg/dl Magnesium Level 1.8 1.8-2.4 mg/dl Total Bilirubin 4.7 5.9 0.2-1 mg/dl Direct Bilirubin 3.6 4.3 0-0.2 mg/dl Aspartate Amino Transf (AST/SGOT) 72 81 15-37 U/L Alanine Aminotransferase (ALT/SGPT) 40 42 12-78 U/L Alkaline Phosphatase 191 184 45-117 U/L Ammonia 69.0 68.0 11-32 umol/L Total Protein 5.2 5.3 6.4-8.2 gm/dl Albumin 1.3 1.4 3.4-5.0 gm/dl Bedside Lactic Acid Venous 2.49 0.90-1.70 mmol/L Urine Color DK YELLOW Urine Appearance CLOUDY CLEAR Urine pH 5.5 4.5-7.5 Urine Specific [place] 1.016 1.000-1.030 Urine Protein NEG NEG Urine Glucose (UA) NEG NEG Urine Ketones NEG NEG Urine Occult Blood NEG NEG Urine Nitrite NEG NEG Urine Bilirubin 1+ NEG Urine Urobilinogen NEG NEG Urine Leukocyte Esterase NEG NEG Urine WBC (Auto) 1-5 0-5 /hpf Urine RBC (Auto) 0-4 0-4 /hpf Urine Hyaline Casts (Auto) 5-10 0-5 /lpf Urine Epithelial Cells (Auto) >30 0-5 /lpf Urine Bacteria (Auto) NEG NEG Urine Crystals See comments NONE PRSENT Urine Pathogenic Casts 0 /lpf Red Blood Cell Morphology Unremarkable Est Creatinine Clear Calc Drug Dose 110.9 ml/min Lactic Acid Level 2.0 0.4-2.0 mmol/L Microbiology Results 03/05/17 Blood Culture, Received Pending 03/05/17 Blood Culture, Received Pending
--- NOTE | 2017-03-06 10:35 | Gastrointestinal Consultation ---
Gastrointestinal Consultation Date of Consultation: March 06, 2017 Attending Physician: Dr. Malin Consulting Physician: Dr. Balbuena Reason for Consultation: Cirrhosis with ascites, GI bleed History of Present Illness Patient is a 46 year old male patient of Dr. Lagunas with a hx of HCV/ETOH cirrhosis with ascites, small esophageal varices and hx of prior hepatic encephalopathy. He presented to the ED yesterday for increasing abdominal girth but was found to have anemia and mentioned a black, loose stool a few days ago. GI is consulted for a GI bleed. Regarding his hx of cirrhosis, his baseline MELD is in the mid teens. He most recent alcohol was 2010. He completed tx from an ID in [place] and most recent HCV RNA in 12/2016 was (-). His most recent hospitalization was in Dec for a partial SBO, managed conservatively. He was seen in the ED last week and underwent paracentesis with findings of 617 WBCs, 39.9% neutrophils. Regarding his abdomen is distended and he has increased lower leg swelling. He believes he is maintained on Lasix 40mg daily and Spironolactone 50 mg BID. Regarding question of GI bleeding, his Hb on arrival was 6.7, down from 8.8 on . Since admission, he received 2 units of RBCs and his Hb is now 8.4. When questioned, that he has been taking Ibuprofen, 800mg tabs, 1-2 times daily for about a week for a broken tooth. He passed one liquid black BM about two days ago. BMs have returned to brown, soft to loose. He c/o generalized weakness , but also mentions that he is "always week," and that he "always feels this way." His most recent EGD was 06/[address] Lin with signs of small esophageal varices, stomach congested, erythematous, hiatal hernia. He has hx of GI bleed from PUD, "years ago." No records of colonoscopy. He denies any chest pain, SOB or dizziness. CXR and lower ext doppler US were negative on arrival. Blood cultures are pending. Past Medical/Surgical History Medical Problems: (1) Acute GI bleeding Status: Acute (2) Anemia Status: Acute (3) Cellulitis Status: Acute (4) End stage liver disease Status: Acute (5) Hyperammonemia Status: Acute Past Medical History: 1. HCV and ETOH cirrhosis complicated by small EV, ascites, prior hepatic encephalopathy. 2. Cellulitis of the lower legs. 3. Hx of PUD. Past Surgical History: 1. Multiple paracentesis, most recently 02/25 with small volume, only 120cc removed. 2. EGD in 2015 as mentioned in the HPI. 3. No hx of colonoscopy. Family History FH: CAD (coronary artery disease) FATHER MOTHER Social History Smoking Status: Never Smoker Alcohol Use: other Drug Use: none, other Marital Status: Housing Status: lives with family Occupation Status: unemployed Allergies Coded Allergies: No Known Allergies (Unverified , 03/06/17) Current Medications Home Meds and Scripts Medications Dose Route/Sig Max Daily Dose Days Date Category Klor-Con M20 (Potassium Chloride) 20 Meq Tabcr 20 Meq PO DAILY 03/05/17 Reported Motrin (Ibuprofen) 800 Mg Tab 800 Mg PO Q8H PRN 03/05/17 Reported Lasix (Furosemide) 40 Mg Tab 1 Tab PO DAILY 10 02/26/17 Rx Prilosec (Omeprazole) 20 Mg Capcr 20 Mg PO DAILY 02/26/17 Reported Aldactone (Spironolactone) 25 Mg Tab 50 Mg PO BID 30 01/23/17 Rx Chronulac (Lactulose) 10 Gm/15 Ml Syrp 10 Gm PO QID 12/10/16 Reported Lasix (Furosemide) 20 Mg Tab 20 Mg PO DAILY 12/10/16 Reported Xifaxan (Rifaximin) 550 Mg Tab 550 Mg PO BID 06/22/15 Reported Review of Systems Constitutional: No chills, No fever, No sweats, No weakness, No weight loss Eyes: No eye pain, No redness ENT: No pain on swallowing, No sore throat, No trouble swallowing Respiratory: No cough, No dyspnea on exertion, No shortness of breath, No wheezing Cardiac: No chest pain, No edema, No palpitations Abdomen: + nausea (reports having nausea/vomiting about once every 1-2 days), + pain, + see HPI, + vomiting Musculoskeletal: No joint pain Neuro: No balance problems, No memory loss, No numbness/tingling, No vertigo, No weakness Psych: No anxiety, No depression symptoms, No insomnia Heme: No abnormal bleeding/bruising, No night sweats Endo: No excessive thirst, No excessive urination Skin: No itch, No jaundice, No new/changing skin lesions, No rash Physical Exam Date Time Temp Pulse Resp B/P Pulse Ox O2 Delivery O2 Flow Rate FiO2 03/06/17 07:45 36.5 100 18 124/46 100 Room Air 03/06/17 05:30 36.5 96 20 116/59 100 03/06/17 05:00 36.6 100 15 115/71 100 03/06/17 04:00 98 Room Air 03/06/17 04:00 36.5 99 16 115/60 98 03/06/17 03:30 36.5 95 18 130/71 100 03/06/17 03:14 36.4 94 18 128/57 100 03/06/17 02:30 36.5 102 20 119/57 100 03/06/17 01:42 36.5 101 20 122/70 100 Room Air 03/06/17 01:32 107 20 113/58 100 Room Air 03/06/17 01:30 36.7 102 20 113/58 100 03/06/17 00:50 36.8 106 20 121/54 100 03/06/17 00:20 36.7 106 18 125/59 99 03/06/17 00:20 36.7 104 18 125/59 99 03/06/17 00:09 106 03/06/17 00:05 36.8 106 18 105/54 99 03/05/17 23:59 36.6 105 16 115/56 100 03/05/17 23:57 36.6 108 20 115/56 100 03/05/17 23:08 110 20 130/59 100 Room Air 03/05/17 21:40 105 22 131/57 100 Room Air 03/05/17 20:28 102 03/05/17 20:04 99 Room Air 03/05/17 19:38 36.8 84 22 145/55 100 Room Air General Appearance: no apparent distress Eyes: normal inspection, EOMI Neck: supple, no adenopathy, thyroid normal, no JVD Respiratory/Chest: chest non-tender, lungs clear, normal breath sounds, no accessory muscle use Cardiovascular: regular rate, rhythm, no JVD, no murmur Abdomen: normal bowel sounds, soft, no organomegaly, + distended (moderate, diffuse tenderness), + tenderness (diffuse, mild tenderness) Extremities: normal capillary refill, + pedal edema (2+ pitting left lower leg edema, 1+ pitting right lower leg edema. ) Neurologic/Psych: alert, normal mood/affect, oriented x 3 Skin: normal color, no jaundice, warm/dry, no rash Laboratory Results Last 24 Hours Test 03/05/17 21:28 03/05/17 21:35 03/06/17 02:30 03/06/17 06:20 White Blood Count 5.84 K/uL 6.12 K/uL Red Blood Count 2.10 M/uL 2.65 M/uL Hemoglobin 6.7 g/dL 8.4 g/dL Hematocrit 19.5 % 24.3 % Mean Corpuscular Volume 92.9 fL 91.7 fL Mean Corpuscular Hemoglobin 31.9 pg 31.7 pg Mean Corpuscular Hemoglobin Concent 34.4 g/dl 34.6 g/dl Platelet Count 89 K/uL 54 K/uL Mean Platelet Volume 9.9 fL 8.9 fL Neutrophils (%) (Auto) 71.8 % 81.1 % Lymphocytes (%) (Auto) 18.3 % 11.3 % Monocytes (%) (Auto) 7.5 % 5.9 % Eosinophils (%) (Auto) 2.1 % 1.0 % Basophils (%) (Auto) 0.0 % 0.2 % Neutrophils # (Auto) 4.19 K/uL 4.97 K/uL Lymphocytes # (Auto) 1.07 K/uL 0.69 K/uL Monocytes # (Auto) 0.44 K/uL 0.36 K/uL Eosinophils # (Auto) 0.12 K/uL 0.06 K/uL Basophils # (Auto) 0.00 K/uL 0.01 K/uL RDW Standard Deviation 63.3 fL 59.6 fL RDW Coefficient of Variation 18.4 % 17.7 % Immature Granulocyte % (Auto) 0.3 % 0.5 % Immature Granulocyte # (Auto) 0.02 K/uL 0.03 K/uL Polychromasia 1+ Target Cells 1+ Schistocytes 1+ Prothrombin Time 15.9 SECONDS Prothromb Time International Ratio 1.5 Activated Partial Thromboplast Time 37.0 SECONDS Partial Thromboplastin Ratio 1.4 Sodium Level 131 mmol/L 132 mmol/L Potassium Level 4.0 mmol/L 3.9 mmol/L Chloride Level 101 mmol/L 102 mmol/L Carbon Dioxide Level 21 mmol/L 22 mmol/L Anion Gap 9.0 mmol/L 8.0 mmol/L Blood Urea Nitrogen 22 mg/dl 22 mg/dl Creatinine 0.95 mg/dl 1.10 mg/dl Estimated GFR () 110.8 92.8 Estimated GFR (Non- 95.6 80.1 BUN/Creatinine Ratio 22.6 20.2 Random Glucose 112 mg/dl 110 mg/dl Calcium Level 7.0 mg/dl 7.0 mg/dl Magnesium Level 1.8 mg/dl Total Bilirubin 4.7 mg/dl 5.9 mg/dl Direct Bilirubin 3.6 mg/dl 4.3 mg/dl Aspartate Amino Transf (AST/SGOT) 72 U/L 81 U/L Alanine Aminotransferase (ALT/SGPT) 40 U/L 42 U/L Alkaline Phosphatase 191 U/L 184 U/L Ammonia 69.0 umol/L 68.0 umol/L Total Protein 5.2 gm/dl 5.3 gm/dl Albumin 1.3 gm/dl 1.4 gm/dl Bedside Lactic Acid Venous 2.49 mmol/L Urine Color DK YELLOW Urine Appearance CLOUDY Urine pH 5.5 Urine Specific [place] 1.016 Urine Protein NEG Urine Glucose (UA) NEG Urine Ketones NEG Urine Occult Blood NEG Urine Nitrite NEG Urine Bilirubin 1+ Urine Urobilinogen NEG Urine Leukocyte Esterase NEG Urine WBC (Auto) 1-5 /hpf Urine RBC (Auto) 0-4 /hpf Urine Hyaline Casts (Auto) 5-10 /lpf Urine Epithelial Cells (Auto) >30 /lpf Urine Bacteria (Auto) NEG Urine Crystals See comments Urine Pathogenic Casts /lpf Red Blood Cell Morphology Unremarkable Est Creatinine Clear Calc Drug Dose 110.9 ml/min Lactic Acid Level 2.0 mmol/L Lower extremities VDUS 03/05/17: (-) for DVT. CXR (-) Impression Patient is a 46 year old male with 1. ETOH/HCV cirrhosis with recent NSAID use and melena. He may have a slow GI bleed. He does have a hx of esophageal varices but this is not suggestive of a variceal bleed. Most recent BM is brown so this likely represents a slow GI bleed from gastritis, duodenitis or ulcer disease. 2. Recent diagnostic paracentesis with suggestion of SBP. Plan 1. He would benefit from having an EGD but best do after treatment of SBP. 2. Albumin 150 Gms today and 125 Gms in 2 days. 3. Repeat diagnostic paracentesis, though may not be accurate because he received antibiotic arrival. 4. Would prescribe Cefotaxime for tx of SBP, will tx with Rocephin instead. 5. Urine culture. Addendum: Not enough ascitic fluid to obtain a diagnostic paracentesis - still will tx for SBP based on results of recent paracentesis on 02/26. Will order NPO after midnight and will consider EGD tomorrow dependent on Hb, Hct and stool outputs. I have seen , examined and agree with the plan as outlined by NANI Chaves as above. -exam reveals soft abd
[2017-03-06] MEDS ORDERED: ALBUMIN HUMAN 25% 12.5 GM/50 ML VIAL IV ONE ×3 (12:30)
[2017-03-06 12:33] LABS: HEMATOCRIT 23.1 % (42-52)
--- NOTE | 2017-03-06 14:26 | DIAGNOSTIC IMAGING REPORT ---
ASCITES-ABDOMEN LIMITED CLINICAL HISTORY: Ascites. COMPARISON STUDY: Ultrasound guided paracentesis February 26, 2017. FINDINGS: A small amount of ascites was noted with the largest pocket within the right upper quadrant. There was no suitable window for a diagnostic paracentesis. IMPRESSION: Small amount of ascites. No sufficient window for paracentesis. Electronically signed by: René Garcia M.D. 03/06/2017 2:24 PM Dictated Date/Time: 03/06/2017 2:23 PM
[2017-03-06] MEDS ORDERED: ALBUMIN HUMAN 25% 12.5 GM/50 ML VIAL IV SCH (16:30)
[2017-03-06 18:21] LABS: HEMATOCRIT 22.1 % (42-52)
[2017-03-06] MEDS ORDERED: FUROSEMIDE INJ 20 MG in SYRINGE 0 ML IV ONE (21:15)
[2017-03-07] VITALS (18 sets, daily range): BP systolic 116–165; BP diastolic 55–73; PULSE 97–110; TEMP 36.3–37.2; O2SAT 97–100
[2017-03-07] MEDS: MoRPHine SULFATE 4 MG/ML 1 ML CARP\\VIAL IV PRN ×3 (00:07→20:05)
[2017-03-07 05:04] LABS: HEMATOCRIT 25.2 % (42-52); MEAN CELL VOLUME 88.4 fL (80-100); MEAN CORPUSCULAR HEMOGLOBIN 29.1 pg (25-34); MEAN CORPUSCULAR HGB CONC 32.9 g/dl (32-36); RED BLOOD COUNT 2.85 M/uL (4.7-6.1); WHITE BLOOD COUNT 3.18 K/uL (4.8-10.8)
[2017-03-07 05:05] LABS: MEAN PLATELET VOLUME 9.3 fL (7.4-10.4); PLATELET COUNT 48 K/uL (130-400)
[2017-03-07 05:22] LABS: BUN/CREATININE RATIO 18.5 (10-20); CALCIUM 7.3 mg/dl (8.5-10.1); POTASSIUM 3.6 mmol/L (3.5-5.1)
[2017-03-07 05:31] LABS: BASO % 0.3 %; BASO ABS # 0.01 K/uL (0-0.2); COMPLETE YES; EOS % 2.5 %; IG% 0.6 %; LYMPH % 23.6 %; LYMPH ABS # 0.75 K/uL (1.2-3.4); MONO % 8.8 %; NEUT % 64.2 %
--- NOTE | 2017-03-07 09:43 | Progress Note ---
Progress Note Date of Service March 07, 2017. (Trudy Granado CRNP) Progress Note GI quick note: Patient is a 46 year old male with ETOH/HCV cirrhosis with recent NSAID use and melena. Hgb on admission was 6.7, now 8.3 after 4U PRBC transfusion. Suspect slow GI bleed, hx of gastritis and gastric/duodenal ulcers seen on previous EGD last done in 2014. He also has hx of esophageal varices but this is not suggestive of a variceal bleed. Currently also admitted for SBP, on Rocephin. Not enough ascites to perform repeat diagnostic paracentesis yesterday. VS, Labs reviewed. No BMs overnight. Exam: - AAOx3 in NAD - HR regular, no murmur or gallops - Chest diminished bilaterally, no crackles, or wheezing. - Abd soft, mildly TTP over epigastric area. - Bilateral LE w weeping edema. PLANS: - Continue current treatment for SBP - Keep NPO for EGD eval today by Dr. Balbuena. - Will give further recs after EGD today. (Trudy Granado CRNP) I have seen, examined and agree with the plan as outlined by NANI Sawant as above. -exam reveals soft abd (Emiliano Balbuena MD)
[2017-03-07] MEDS: PANTOprazole INJ 40 MG in SYRINGE 0 ML IV SCH ×2 (10:00→19:59)
[2017-03-07] MEDS: CEFTRIAXONE SOD INJ 1 GM in DEXTROSE 5% ADD-VANTAGE 50ML 50 ML IV SCH (10:01)
--- NOTE | 2017-03-07 11:01 | GI REPORT ---
Procedure Date: 03/07/2017 10:36 AM Procedure: Upper GI endoscopy Indications: Melena Medicines: General Anesthesia Complications: No immediate complications. Estimated blood loss: None. Estimated Blood Loss: Estimated blood loss: none. Procedure: Pre-Anesthesia Assessment: - Pre-Anesthesia Assessment: - Prior to the procedure, a History and Physical was performed, and patient medications, allergies and sensitivities were reviewed. The patient's tolerance of previous anesthesia was reviewed. Please see [facility] for complete details. - The risks and benefits of the procedure and the sedation options and risks were discussed with the patient. All questions were answered and informed consent was obtained. - Patient identification and proposed procedure were verified prior to the procedure by the physician and the nurse. The procedure was verified in the pre-procedure area in the procedure room. After obtaining informed consent, the endoscope was passed carefully and meticuously under direct vision and only advanced when the lumen was clearly identified, C02 insuflation was utilized throughout the entirity of the procedure. Throughout the procedure, the patient's blood pressure, pulse, and oxygen saturations were monitored continuously. After obtaining informed consent, the endoscope was passed under direct vision. Throughout the procedure, the patient's blood pressure, pulse, and oxygen saturations were monitored continuously. The scope was introduced through the mouth, and advanced to the second part of duodenum. The upper GI endoscopy was accomplished without difficulty. The patient tolerated the procedure well. Findings: Small (< 5 mm) varices were found in the lower third of the esophagus. No evidence of high risk stigmata and no bleeding. Diffuse moderate mucosal changes characterized by appearances consistent with portal HTN gastropathy were found in the gastric fundus, in the gastric body and in the gastric antrum. The examined duodenum was normal. No evidence of bleeding Impression: - Small (< 5 mm) esophageal varices. - Appearances consistent with portal HTN gastropathy mucosa in the gastric fundus, gastric body and antrum. - Normal examined duodenum. - No specimens collected. Recommendation: - Return patient [facility] for [facility] care. - Low salt diet. Emiliano Balbuena MD 03/07/2017 11:01:03 AM This report has been signed electronically. Note Initiated On: 03/07/2017 10:36 AM I attest to the content of the Intraoperative Record and orders documented therein, exceptions below
--- NOTE | 2017-03-07 11:28 | Anesthesiology Progress Note ---
Anesthesia Post Op Note Date & Time March 07, 2017 at 11:28 Vital Signs Pain Intensity: 0.0 Vital Signs Past 12 Hours Date Time Temp Pulse Resp B/P Pulse Ox O2 Delivery O2 Flow Rate FiO2 03/07/17 11:22 92 16 144/66 100 Room Air 03/07/17 11:07 95 16 129/78 98 Room Air 03/07/17 10:52 100 16 137/68 97 Room Air 03/07/17 10:22 36.9 97 18 149/58 99 Room Air 03/07/17 09:52 36.3 102 16 139/59 100 Room Air 03/07/17 07:47 36.3 102 16 139/59 100 Room Air 03/07/17 06:31 36.5 97 20 128/59 99 Room Air 03/07/17 04:19 36.5 97 20 128/59 99 Room Air 03/07/17 04:00 99 Room Air 03/07/17 03:25 36.4 98 14 128/67 99 03/07/17 03:00 36.4 110 16 122/69 98 03/07/17 02:30 36.8 106 14 116/56 98 03/07/17 02:00 36.6 103 14 127/67 98 03/07/17 01:45 37.0 100 14 126/66 98 03/07/17 01:45 37.0 100 14 126/66 98 03/07/17 01:30 37.2 104 20 131/62 98 03/07/17 01:15 37.1 104 18 131/62 97 03/07/17 01:02 37.0 106 22 137/55 98 03/07/17 00:01 98 Room Air 03/06/17 23:32 36.9 111 20 130/61 98 Notes Mental Status: alert / awake / arousable, participated in evaluation Pt Amnestic to Procedure: Yes Nausea / Vomiting: adequately controlled Pain: adequately controlled Airway Patency, RR, SpO2: stable & adequate BP & HR: stable & adequate Hydration State: stable & adequate Anesthetic Complications: no major complications apparent
[2017-03-07] MEDS: POTASSIUM CHLORIDE 20 MEQ TABCR PO SCH (11:44)
[2017-03-07] MEDS: RIFAXIMIN TAB 550 MG TAB PO SCH ×2 (11:44→19:59)
[2017-03-07] MEDS: SPIRONOLACTONE 25 MG TAB PO SCH ×2 (11:44→15:52)
[2017-03-07] MEDS: FUROSEMIDE 40 MG TAB PO SCH (11:45)
[2017-03-07] MEDS: LACTULOSE SYRUP 20 GM/30 ML UDC PO SCH ×3 (11:45→19:21)
--- NOTE | 2017-03-07 13:35 | Progress Note ---
Internal Med Progress Note Date of Service: March 07, 2017. Provider Documentation: SUBJECTIVE: The patient was seen and examined Lying in bed comfortably Complains of some abdominal discomfort Nausea but no vomiting Awaiting EGD this morning OBJECTIVE: Vital Signs-as noted below Exam: General-no distress at rest Eyes-normal ENT-normal Neck-supple Lungs-decreased breath sound bilaterally No crackles Heart-Regular,no murmur appreciated Abdomen-Distended,soft ,mildly tender ,bowel sound present Extremities-Trace edema bilaterally Neuro-AAOx3 No hepatic Flap Lab data as noted below. ASSESSMENT & PLAN: Acute Decompensated Cirrhosis With increasing Ascites and pain No Encephalopathy H/O HCV sp treatment ,past ETOH abuse Possible spontaneous bacterial peritonitis w/ abd pain sx,No sepsis. Continue Diuresis Started on IV Ceftriaxone and will continue for 5 days Facilitate Lactulose, Rifaximin GI consulted EGD today Upper gastrointestinal bleeding history of gastritis, history of esophageal varices on 2014 EGd, No active symptoms the last 24hrs Has been having Black stools Possibly related to OTC NSAID intake, Hb dropped and received 2 units of PRBC IV PPI b.i.d. for now. GI consult RE UGIB, ascites Hb >8 on 03/06/17 Received 4 units of RBC so far No overt GI bleed Hypertension, Stable. Chronic hyponatremia 2 to cirrhosis. DVT prophylaxis, SCDs RE thrombocytopenia. Full code. DISPOSITION Awaited Vital Signs: Date Time Temp Pulse Resp B/P Pulse Ox O2 Delivery O2 Flow Rate FiO2 03/07/17 12:00 Room Air 03/07/17 11:22 92 16 144/66 100 Room Air 03/07/17 11:07 95 16 129/78 98 Room Air 03/07/17 10:52 100 16 137/68 97 Room Air 03/07/17 10:22 36.9 97 18 149/58 99 Room Air 03/07/17 09:52 36.3 102 16 139/59 100 Room Air 03/07/17 08:00 Room Air 03/07/17 07:47 36.3 102 16 139/59 100 Room Air 03/07/17 06:31 36.5 97 20 128/59 99 Room Air 03/07/17 04:19 36.5 97 20 128/59 99 Room Air 03/07/17 04:00 99 Room Air 03/07/17 03:25 36.4 98 14 128/67 99 03/07/17 03:00 36.4 110 16 122/69 98 03/07/17 02:30 36.8 106 14 116/56 98 03/07/17 02:00 36.6 103 14 127/67 98 03/07/17 01:45 37.0 100 14 126/66 98 03/07/17 01:45 37.0 100 14 126/66 98 03/07/17 01:30 37.2 104 20 131/62 98 03/07/17 01:15 37.1 104 18 131/62 97 03/07/17 01:02 37.0 106 22 137/55 98 03/07/17 00:01 98 Room Air 03/06/17 23:32 36.9 111 20 130/61 98 03/06/17 22:18 37.1 109 22 131/62 98 03/06/17 21:48 37.0 109 22 141/64 100 03/06/17 21:18 37.1 106 22 136/55 96 03/06/17 21:03 36.5 107 20 144/61 99 03/06/17 20:48 36.8 107 20 131/47 100 03/06/17 20:00 Room Air 03/06/17 19:48 36.8 103 19 121/45 98 Room Air 03/06/17 16:04 36.4 105 24 135/57 100 Room Air 03/06/17 16:00 Room Air 03/06/17 14:26 36.7 111 22 124/50 99 Room Air Lab Results: Results Past 24 Hours Test 03/06/17 18:05 03/07/17 00:18 03/07/17 04:44 03/07/17 06:51 Range/Units Hemoglobin 7.4 8.3 14.0-18.0 g/dL Hematocrit 22.1 25.2 42-52 % Bedside Glucose 112 97 70-99 mg/dl White Blood Count 3.18 4.8-10.8 K/uL Red Blood Count 2.85 4.7-6.1 M/uL Mean Corpuscular Volume 88.4 80-100 fL Mean Corpuscular Hemoglobin 29.1 25-34 pg Mean Corpuscular Hemoglobin Concent 32.9 32-36 g/dl Platelet Count 48 130-400 K/uL Mean Platelet Volume 9.3 7.4-10.4 fL Neutrophils (%) (Auto) 64.2 % Lymphocytes (%) (Auto) 23.6 % Monocytes (%) (Auto) 8.8 % Eosinophils (%) (Auto) 2.5 % Basophils (%) (Auto) 0.3 % Neutrophils # (Auto) 2.04 1.4-6.5 K/uL Lymphocytes # (Auto) 0.75 1.2-3.4 K/uL Monocytes # (Auto) 0.28 0.11-0.59 K/uL Eosinophils # (Auto) 0.08 0-0.5 K/uL Basophils # (Auto) 0.01 0-0.2 K/uL RDW Standard Deviation 58.2 36.4-46.3 fL RDW Coefficient of Variation 18.0 11.5-14.5 % Immature Granulocyte % (Auto) 0.6 % Immature Granulocyte # (Auto) 0.02 0.00-0.02 K/uL Red Blood Cell Morphology Unremarkable Sodium Level 134 136-145 mmol/L Potassium Level 3.6 3.5-5.1 mmol/L Chloride Level 103 98-107 mmol/L Carbon Dioxide Level 23 21-32 mmol/L Anion Gap 8.0 3-11 mmol/L Blood Urea Nitrogen 18 7-18 mg/dl Creatinine 1.00 0.60-1.40 mg/dl Est Creatinine Clear Calc Drug Dose 122.0 ml/min Estimated GFR () 104.1 Estimated GFR (Non- 89.9 BUN/Creatinine Ratio 18.5 10-20 Random Glucose 93 70-99 mg/dl Calcium Level 7.3 8.5-10.1 mg/dl
[2017-03-08] VITALS (9 sets, daily range): BP systolic 114–165; BP diastolic 47–74; PULSE 102–112; TEMP 36.5–37; O2SAT 97–100
[2017-03-08] MEDS: MoRPHine SULFATE 4 MG/ML 1 ML CARP\\VIAL IV PRN ×4 (00:26→23:21)
[2017-03-08] MEDS: LACTULOSE SYRUP 20 GM/30 ML UDC PO SCH ×3 (04:25→21:11)
--- NOTE | 2017-03-08 07:13 | DIAGNOSTIC IMAGING REPORT ---
ULTRASOUND RIGHT UPPER EXTREMITY VENOUS CLINICAL HISTORY: Right arm pain and swelling. COMPARISON STUDY: No priors. TECHNIQUE: Real-time, grayscale, and color Doppler sonography of the deep veins of the right upper extremity is performed. Compression and augmentation were utilized. FINDINGS: There is no sonographic evidence of deep venous thrombosis identified in the right upper extremity. The right internal jugular, axillary, and brachial veins are patent and normally compressible. Normal venous waveforms and augmentation are seen within the right subclavian vein. The cephalic and basilic veins are clear. The visualized radial and ulnar veins are patent. Soft tissue edema is noted in the right antecubital fossa. No organized fluid collection is seen. IMPRESSION: There is no sonographic evidence of deep venous thrombosis identified in the right upper extremity. Electronically signed by: Keny Bush M.D. 03/08/2017 7:09 AM Dictated Date/Time: 03/08/2017 7:09 AM
[2017-03-08 07:28] LABS: HEMATOCRIT 23.3 % (42-52); MEAN CELL VOLUME 90.7 fL (80-100); MEAN CORPUSCULAR HEMOGLOBIN 31.1 pg (25-34); MEAN CORPUSCULAR HGB CONC 34.3 g/dl (32-36); RED BLOOD COUNT 2.57 M/uL (4.7-6.1)
[2017-03-08 07:48] LABS: MEAN PLATELET VOLUME 8.8 fL (7.4-10.4); PLATELET COUNT 55 K/uL (130-400)
[2017-03-08 08:06] LABS: BUN/CREATININE RATIO 12.2 (10-20); CREATININE 0.88 mg/dl (0.60-1.40); POTASSIUM 3.7 mmol/L (3.5-5.1)
[2017-03-08 08:11] LABS: BASO % 0.3 %; BASO ABS # 0.01 K/uL (0-0.2); COMPLETE YES; EOS % 1.2 %; IG% 0.9 %; LYMPH % 17.6 %; MONO % 9.1 %; NEUT % 70.9 %; POLYCHROMASIA 1+
[2017-03-08] MEDS: CEFTRIAXONE SOD INJ 1 GM in DEXTROSE 5% ADD-VANTAGE 50ML 50 ML IV SCH (08:17)
[2017-03-08] MEDS: SPIRONOLACTONE 25 MG TAB PO SCH ×2 (08:18→17:31)
[2017-03-08] MEDS: PANTOprazole INJ 40 MG in SYRINGE 0 ML IV SCH ×2 (08:18→21:11)
[2017-03-08] MEDS: FUROSEMIDE 40 MG TAB PO SCH (08:18)
[2017-03-08] MEDS: POTASSIUM CHLORIDE 20 MEQ TABCR PO SCH (08:19)
[2017-03-08] MEDS: RIFAXIMIN TAB 550 MG TAB PO SCH ×2 (08:19→21:11)
--- NOTE | 2017-03-08 08:52 | Gastroenterology Progress Note ---
Progress Note Date of Service: March 08, 2017 Subjective Pt evaluation today including: conversation w/ patient, physical exam, chart review, lab review, review of studies, review of inpatient medication list Pt c/o R arm weeping from IV infiltrate. Moving bowels, denies abd pain, n/v. H/ H stable. Review of Systems Constitutional: No chills, No fever Respiratory: No cough, No shortness of breath Cardiac: No chest pain Abdomen: No nausea, No pain, No vomiting Medications Current Inpatient Medications Medications (Trade) Dose Ordered Sig/Jaren Route Start Time Stop Time Status Last Admin Dose Admin Acetaminophen (Tylenol Tab) 325 mg Q6H PRN PO 03/06/17 01:30 04/05/17 01:29 Nitroglycerin (Nitrostat Tab) 0.4 mg UD PRN SL 03/06/17 01:30 04/05/17 01:29 Furosemide (Lasix Tab) 40 mg DAILY PO 03/06/17 09:00 04/05/17 08:59 03/08/17 08:18 40 MG Lactulose (Chronulac Syrup) 20 gm TID PO 03/06/17 09:00 04/05/17 08:59 03/08/17 04:25 20 GM Potassium Chloride (Klor-Con Tab) 20 meq DAILY PO 03/06/17 09:00 04/05/17 08:59 03/08/17 08:19 20 MEQ Rifaximin (Xifaxan Tab) 550 mg BID PO 03/06/17 09:00 04/05/17 08:59 03/08/17 08:19 550 MG Spironolactone 50 mg 50 mg BID17 PO 03/06/17 09:00 04/05/17 08:59 03/08/17 08:18 50 MG Pantoprazole Sodium/Syringe (Protonix Inj/ Syringe) 10 ml @ 5 mls/min BID IV 03/06/17 09:00 04/05/17 08:59 03/08/17 08:18 5 MLS/MIN Tramadol HCl (Ultram Tab) 25 mg Q6H PRN PO 03/06/17 01:30 04/05/17 01:29 Morphine Sulfate 4 mg 4 mg Q4H PRN IV 03/06/17 01:30 03/20/17 01:29 03/08/17 08:33 4 MG Ceftriaxone Sodium/Dextrose (Rocephin Inj/ Dextrose Add-Lindsay 50ML) 50 ml @ 100 mls/hr Q24H IV 03/06/17 09:00 03/16/17 08:59 03/08/17 08:17 100 MLS/HR Albumin Human (Albumin 25%) 125 gm ONE ONCE IV 03/08/17 12:00 03/08/17 12:01 Objective Vital Signs Date Time Temp Pulse Resp B/P Pulse Ox O2 Delivery O2 Flow Rate FiO2 03/08/17 08:31 36.7 105 94 157/72 03/08/17 04:00 97 Room Air 03/08/17 03:50 36.8 107 20 136/57 97 Room Air 03/08/17 00:00 37.0 103 136/55 100 Room Air 03/08/17 00:00 100 Room Air 03/07/17 20:00 Room Air 03/07/17 19:24 36.8 105 22 146/64 100 Room Air 03/07/17 16:00 Room Air 03/07/17 15:30 36.8 99 27 148/67 99 Room Air 03/07/17 12:15 101 16 140/72 97 03/07/17 12:00 Room Air 03/07/17 12:00 97 25 165/73 99 03/07/17 11:22 92 16 144/66 100 Room Air 03/07/17 11:07 95 16 129/78 98 Room Air 03/07/17 10:52 100 16 137/68 97 Room Air 03/07/17 10:22 36.9 97 18 149/58 99 Room Air 03/07/17 09:52 36.3 102 16 139/59 100 Room Air Physical Exam General Appearance: WD/WN, no apparent distress Eyes: EOMI, + pertinent finding (mild icteric sclera) Respiratory/Chest: normal breath sounds, no respiratory distress, no accessory muscle use Cardiovascular: regular rate, rhythm, no gallop, no murmur Abdomen: normal bowel sounds, non tender, soft Extremities: + swelling (LUE wrapped in gauze, weepy serosangenous fluid in AC area. Bilateral LE w +1 pitting edema, some weepy area. ) Neurologic/Psych: alert, normal mood/affect, oriented x 3 Skin: + jaundice (mild) Laboratory Results Last 24 Hours Test 03/08/17 07:18 White Blood Count 3.40 K/uL Red Blood Count 2.57 M/uL Hemoglobin 8.0 g/dL Hematocrit 23.3 % Mean Corpuscular Volume 90.7 fL Mean Corpuscular Hemoglobin 31.1 pg Mean Corpuscular Hemoglobin Concent 34.3 g/dl Platelet Count 55 K/uL Mean Platelet Volume 8.8 fL Neutrophils (%) (Auto) 70.9 % Lymphocytes (%) (Auto) 17.6 % Monocytes (%) (Auto) 9.1 % Eosinophils (%) (Auto) 1.2 % Basophils (%) (Auto) 0.3 % Neutrophils # (Auto) 2.41 K/uL Lymphocytes # (Auto) 0.60 K/uL Monocytes # (Auto) 0.31 K/uL Eosinophils # (Auto) 0.04 K/uL Basophils # (Auto) 0.01 K/uL RDW Standard Deviation 61.9 fL RDW Coefficient of Variation 18.8 % Immature Granulocyte % (Auto) 0.9 % Immature Granulocyte # (Auto) 0.03 K/uL Polychromasia 1+ Sodium Level 134 mmol/L Potassium Level 3.7 mmol/L Chloride Level 102 mmol/L Carbon Dioxide Level 26 mmol/L Anion Gap 6.0 mmol/L Blood Urea Nitrogen 11 mg/dl Creatinine 0.88 mg/dl Est Creatinine Clear Calc Drug Dose 138.7 ml/min Estimated GFR () 119.4 Estimated GFR (Non- 103.0 BUN/Creatinine Ratio 12.2 Random Glucose 118 mg/dl Assessment and Plan Patient is a 46 year old male with ETOH/HCV cirrhosis with recent NSAID use and melena. EGD on 03/08/17 w signs of small esophageal varices w/o stigmata or risk of bleeding. He does have portal hypertensive gastropathy. Hgb been stable around 8. He received a total of 4U PRBC transfusion since admission. He is also currently admitted for SBP management (seen on u/s paracentesis cell ct on ), not sufficient ascites to be re-tapped at this admission. He had received 3 days of Rocephin w Albumin treatment on day 1 and 3 of admission. - Continue Lactulose 20mg TID, Protonix 40mg BID, Lasix 40mg/day, Spironolactone 50mg BID - May stop Rocephin after today and convert to Cipro 500mg BID x 10 days for SBP treatment. Last Albumin 125mg IV today. - Continue ETOH abstinence - Low salt diet. He may have a slow GI bleed. He does have a hx of esophageal varices but this is not suggestive of a variceal bleed. Most recent BM is brown so this likely represents a slow GI bleed from gastritis, duodenitis or ulcer disease. I have seen, examined and agree with the plan as outlined by NANI Sawant as above. -exam reveals soft abd -overall weak -ok to continue abx-after 3 days should be ok to transition to Oral cipro -Aggresive nutrition/PT -Albumin
[2017-03-08 09:40] LABS: CALCIUM 7.5 mg/dl (8.5-10.1)
[2017-03-08] MEDS ORDERED: ALBUMIN HUMAN 25% 12.5 GM/50 ML VIAL IV ONE ×2 (12:00)
--- NOTE | 2017-03-08 15:21 | Progress Note ---
Internal Med Progress Note Date of Service: March 08, 2017. Provider Documentation: SUBJECTIVE: The patient was seen and examined Complains of some abdominal discomfort OOB in a chair OBJECTIVE: Vital Signs-as noted below Exam: General-no distress at rest Eyes-normal ENT-normal Neck-supple Lungs-decreased breath sound bilaterally No crackles Heart-Regular,no murmur appreciated Abdomen-Distended,soft ,mildly tender ,bowel sound present Extremities-Trace edema bilaterally -slightly improved Neuro-AAOx3 No hepatic Flap Lab data as noted below. ASSESSMENT & PLAN: Acute Decompensated Cirrhosis With increasing Ascites and pain No Encephalopathy H/O HCV sp treatment ,past ETOH abuse Possible spontaneous bacterial peritonitis w/ abd pain sx,No sepsis. Continue Diuresis Started on IV Ceftriaxone and will continue with oral Cipro as an OP Facilitate Lactulose, Rifaximin GI consulted -appreciate Input EGD today-no obvious bleeding HB ~8.0 Upper gastrointestinal bleeding history of gastritis, history of esophageal varices on 2014 EGd, No active symptoms the last 24hrs Has been having Black stools Possibly related to OTC NSAID intake, Hb dropped and received 2 units of PRBC IV PPI b.i.d. for now. GI consult RE UGIB, ascites Hb >8 on 03/06/17 Received 4 units of RBC so far No overt GI bleed Hb Remains stable Hypertension, Stable. Chronic hyponatremia 2 to cirrhosis. DVT prophylaxis, SCDs RE thrombocytopenia. Full code. DISPOSITION PT/OT evaluation Likely home tomorrow if Hb remains stable Vital Signs: Date Time Temp Pulse Resp B/P Pulse Ox O2 Delivery O2 Flow Rate FiO2 03/08/17 12:07 36.6 112 18 165/74 97 03/08/17 11:45 97 Room Air 03/08/17 08:31 36.7 105 94 157/72 03/08/17 07:30 Room Air 03/08/17 04:00 97 Room Air 03/08/17 03:50 36.8 107 20 136/57 97 Room Air 03/08/17 00:00 37.0 103 136/55 100 Room Air 03/08/17 00:00 100 Room Air 03/07/17 20:00 Room Air 03/07/17 19:24 36.8 105 22 146/64 100 Room Air 03/07/17 16:00 Room Air 03/07/17 15:30 36.8 99 27 148/67 99 Room Air Lab Results: Results Past 24 Hours Test 03/08/17 07:18 Range/Units White Blood Count 3.40 4.8-10.8 K/uL Red Blood Count 2.57 4.7-6.1 M/uL Hemoglobin 8.0 14.0-18.0 g/dL Hematocrit 23.3 42-52 % Mean Corpuscular Volume 90.7 80-100 fL Mean Corpuscular Hemoglobin 31.1 25-34 pg Mean Corpuscular Hemoglobin Concent 34.3 32-36 g/dl Platelet Count 55 130-400 K/uL Mean Platelet Volume 8.8 7.4-10.4 fL Neutrophils (%) (Auto) 70.9 % Lymphocytes (%) (Auto) 17.6 % Monocytes (%) (Auto) 9.1 % Eosinophils (%) (Auto) 1.2 % Basophils (%) (Auto) 0.3 % Neutrophils # (Auto) 2.41 1.4-6.5 K/uL Lymphocytes # (Auto) 0.60 1.2-3.4 K/uL Monocytes # (Auto) 0.31 0.11-0.59 K/uL Eosinophils # (Auto) 0.04 0-0.5 K/uL Basophils # (Auto) 0.01 0-0.2 K/uL RDW Standard Deviation 61.9 36.4-46.3 fL RDW Coefficient of Variation 18.8 11.5-14.5 % Immature Granulocyte % (Auto) 0.9 % Immature Granulocyte # (Auto) 0.03 0.00-0.02 K/uL Polychromasia 1+ Sodium Level 134 136-145 mmol/L Potassium Level 3.7 3.5-5.1 mmol/L Chloride Level 102 98-107 mmol/L Carbon Dioxide Level 26 21-32 mmol/L Anion Gap 6.0 3-11 mmol/L Blood Urea Nitrogen 11 7-18 mg/dl Creatinine 0.88 0.60-1.40 mg/dl Est Creatinine Clear Calc Drug Dose 138.7 ml/min Estimated GFR () 119.4 Estimated GFR (Non- 103.0 BUN/Creatinine Ratio 12.2 10-20 Random Glucose 118 70-99 mg/dl Calcium Level 7.5 8.5-10.1 mg/dl
[2017-03-08] MEDS ORDERED: NURSING VERBAL MED ORDER ONE (18:15)
[2017-03-09] VITALS (25 sets, daily range): BP systolic 111–144; BP diastolic 37–62; PULSE 94–107; TEMP 36.6–37.3; O2SAT 91–98
[2017-03-09] MEDS: MoRPHine SULFATE 4 MG/ML 1 ML CARP\\VIAL IV PRN ×4 (06:28→22:25)
[2017-03-09] MEDS: RIFAXIMIN TAB 550 MG TAB PO SCH ×2 (07:47→21:12)
[2017-03-09] MEDS: PANTOprazole INJ 40 MG in SYRINGE 0 ML IV SCH ×2 (07:47→21:13)
[2017-03-09] MEDS: SPIRONOLACTONE 25 MG TAB PO SCH ×2 (07:48→15:55)
[2017-03-09] MEDS: FUROSEMIDE 40 MG TAB PO SCH (07:48)
[2017-03-09] MEDS: LACTULOSE SYRUP 20 GM/30 ML UDC PO SCH ×3 (07:48→21:12)
[2017-03-09] MEDS: CIPROFLOXACIN 500 MG TAB PO SCH ×2 (07:49→21:12)
[2017-03-09] MEDS: POTASSIUM CHLORIDE 20 MEQ TABCR PO SCH (07:49)
[2017-03-09 08:50] LABS: HEMATOCRIT 21.8 % (42-52); MEAN CORPUSCULAR HEMOGLOBIN 31.5 pg (25-34); MEAN CORPUSCULAR HGB CONC 33.5 g/dl (32-36); RED BLOOD COUNT 2.32 M/uL (4.7-6.1); WHITE BLOOD COUNT 2.27 K/uL (4.8-10.8)
[2017-03-09 08:53] LABS: MEAN PLATELET VOLUME 9.9 fL (7.4-10.4); PLATELET COUNT 49 K/uL (130-400)
[2017-03-09 09:12] LABS: BUN/CREATININE RATIO 9.2 (10-20); CREATININE 0.98 mg/dl (0.60-1.40)
[2017-03-09 09:20] LABS: ANISOCYTOSIS PRESENT; BASO % 0.4 %; BASO ABS # 0.01 K/uL (0-0.2); COMPLETE YES; EOS % 1.3 %; IG% 0.9 %; LYMPH % 15.4 %; LYMPH ABS # 0.35 K/uL (1.2-3.4); TEAR DROP CELLS OCCASIONAL
[2017-03-09 09:31] LABS: CALCIUM 8.2 mg/dl (8.5-10.1)
[2017-03-09] MEDS ORDERED: FUROSEMIDE INJ 40 MG in SYRINGE 0 ML IV SCH (11:00)
--- NOTE | 2017-03-09 11:10 | Progress Note ---
Internal Med Progress Note Date of Service: March 09, 2017. Provider Documentation: SUBJECTIVE: The patient was seen and examined Complains of some abdominal discomfort Remains stable in Bed No new symptoms,remains generally weak and lethargic OBJECTIVE: Vital Signs-as noted below Exam: General-no distress at rest Eyes-normal ENT-normal Neck-supple Lungs-decreased breath sound bilaterally No crackles Heart-Regular,no murmur appreciated Abdomen-Distended,soft ,mildly tender ,bowel sound present Extremities-Trace edema bilaterally Swelling right upper extremity as well Neuro-AAOx3 No hepatic Flap Lab data as noted below. ASSESSMENT & PLAN: Acute Decompensated Cirrhosis With increasing Ascites and pain No Encephalopathy H/O HCV sp treatment ,past ETOH abuse Possible spontaneous bacterial peritonitis w/ abd pain sx,No sepsis. Continue Diuresis Started on IV Ceftriaxone and will continue with oral Cipro as an OP Facilitate Lactulose, Rifaximin GI consulted -appreciate Input EGD today-no obvious bleeding HB dropped to 7.3 this morning Upper gastrointestinal bleeding history of gastritis, history of esophageal varices on 2014 EGd, No active symptoms the last 24hrs Has been having Black stools Possibly related to OTC NSAID intake, Hb dropped and received 2 units of PRBC IV PPI b.i.d. for now. GI consult RE UGIB, ascites Hb >8 on 03/06/17 Received 4 units of RBC so far No overt GI bleed but Hb dropped to 7.3 on 03/09/17 Will give 2 more units of PRBC Hypertension, Stable. Chronic hyponatremia 2 to cirrhosis. Awaiting Transplant evaluation at [place] DVT prophylaxis, SCDs RE thrombocytopenia. Full code. DISPOSITION PT/OT evaluation Monitor Hb -home when stable Vital Signs: Date Time Temp Pulse Resp B/P Pulse Ox O2 Delivery O2 Flow Rate FiO2 03/09/17 08:00 96 Room Air 03/09/17 07:35 36.7 95 19 129/54 96 Room Air 03/09/17 04:00 Room Air 03/09/17 04:00 36.6 94 22 117/55 98 Room Air 03/09/17 00:00 Room Air 03/08/17 23:54 36.8 103 22 114/47 97 Room Air 03/08/17 20:00 Room Air 03/08/17 19:21 36.8 102 20 127/55 97 Room Air 03/08/17 16:00 Room Air 03/08/17 15:44 36.5 103 24 128/56 98 Room Air 03/08/17 12:07 36.6 112 18 165/74 97 03/08/17 11:45 97 Room Air Lab Results: Results Past 24 Hours Test 03/09/17 08:35 Range/Units White Blood Count 2.27 4.8-10.8 K/uL Red Blood Count 2.32 4.7-6.1 M/uL Hemoglobin 7.3 14.0-18.0 g/dL Hematocrit 21.8 42-52 % Mean Corpuscular Volume 94.0 80-100 fL Mean Corpuscular Hemoglobin 31.5 25-34 pg Mean Corpuscular Hemoglobin Concent 33.5 32-36 g/dl Platelet Count 49 130-400 K/uL Mean Platelet Volume 9.9 7.4-10.4 fL Neutrophils (%) (Auto) 75.0 % Lymphocytes (%) (Auto) 15.4 % Monocytes (%) (Auto) 7.0 % Eosinophils (%) (Auto) 1.3 % Basophils (%) (Auto) 0.4 % Neutrophils # (Auto) 1.70 1.4-6.5 K/uL Lymphocytes # (Auto) 0.35 1.2-3.4 K/uL Monocytes # (Auto) 0.16 0.11-0.59 K/uL Eosinophils # (Auto) 0.03 0-0.5 K/uL Basophils # (Auto) 0.01 0-0.2 K/uL RDW Standard Deviation 65.0 36.4-46.3 fL RDW Coefficient of Variation 19.0 11.5-14.5 % Immature Granulocyte % (Auto) 0.9 % Immature Granulocyte # (Auto) 0.02 0.00-0.02 K/uL Anisocytosis PRESENT Tear Drop Cells OCCASIONAL Sodium Level 136 136-145 mmol/L Potassium Level 4.0 3.5-5.1 mmol/L Chloride Level 105 98-107 mmol/L Carbon Dioxide Level 22 21-32 mmol/L Anion Gap 9.0 3-11 mmol/L Blood Urea Nitrogen 9 7-18 mg/dl Creatinine 0.98 0.60-1.40 mg/dl Est Creatinine Clear Calc Drug Dose 124.7 ml/min Estimated GFR () 106.7 Estimated GFR (Non- 92.1 BUN/Creatinine Ratio 9.2 10-20 Random Glucose 193 70-99 mg/dl Calcium Level 8.2 8.5-10.1 mg/dl
[2017-03-10] VITALS (8 sets, daily range): BP systolic 121–155; BP diastolic 56–79; PULSE 37–103; TEMP 36.7–37.8; O2SAT 94–99
[2017-03-10] MEDS: MoRPHine SULFATE 4 MG/ML 1 ML CARP\\VIAL IV PRN ×5 (04:06→22:15)
[2017-03-10 07:26] LABS: HEMATOCRIT 24.8 % (42-52); MEAN CELL VOLUME 90.8 fL (80-100); MEAN CORPUSCULAR HEMOGLOBIN 30.4 pg (25-34); MEAN CORPUSCULAR HGB CONC 33.5 g/dl (32-36); MEAN PLATELET VOLUME 9.3 fL (7.4-10.4); PLATELET COUNT 47 K/uL (130-400); RED BLOOD COUNT 2.73 M/uL (4.7-6.1); WHITE BLOOD COUNT 3.38 K/uL (4.8-10.8)
[2017-03-10 07:45] LABS: BUN/CREATININE RATIO 12.9 (10-20); CALCIUM 7.6 mg/dl (8.5-10.1); CREATININE 0.77 mg/dl (0.60-1.40)
[2017-03-10 07:51] LABS: ANISOCYTOSIS PRESENT; BASO % 0.6 %; BASO ABS # 0.02 K/uL (0-0.2); COMPLETE YES; EOS % 1.2 %; IG% 0.6 %; LYMPH % 14.2 %; LYMPH ABS # 0.48 K/uL (1.2-3.4); MONO % 8.9 %; NEUT % 74.5 %; POLYCHROMASIA 1+
[2017-03-10] MEDS ORDERED: SOD PHOSPHATE/SOD BIPHOSPHATE ENEMA 132 ML BTL PR ONE (08:00)
[2017-03-10] MEDS: PANTOprazole INJ 40 MG in SYRINGE 0 ML IV SCH ×2 (08:22→20:59)
[2017-03-10] MEDS: RIFAXIMIN TAB 550 MG TAB PO SCH ×2 (08:23→20:58)
[2017-03-10] MEDS: POTASSIUM CHLORIDE 20 MEQ TABCR PO SCH (08:23)
[2017-03-10] MEDS: SPIRONOLACTONE 25 MG TAB PO SCH ×2 (08:24→16:08)
[2017-03-10] MEDS: CIPROFLOXACIN 500 MG TAB PO SCH ×2 (08:24→20:59)
[2017-03-10] MEDS: LACTULOSE SYRUP 20 GM/30 ML UDC PO SCH ×3 (08:24→20:58)
[2017-03-10] MEDS: FUROSEMIDE 40 MG TAB PO SCH (08:42)
--- NOTE | 2017-03-10 12:43 | Progress Note ---
Internal Med Progress Note Date of Service: March 10, 2017. Provider Documentation: SUBJECTIVE: The patient was seen and examined Complains of some abdominal discomfort Remains stable in Bed Bowel not moved since yesterday without any symptoms Passing gas Advised -more ambulation OBJECTIVE: Vital Signs-as noted below Exam: General-no distress at rest Eyes-normal ENT-normal Neck-supple Lungs-decreased breath sound bilaterally No crackles Heart-Regular,no murmur appreciated Abdomen-Distended,soft ,mildly tender ,bowel sound present Extremities-Trace edema bilaterally Swelling right upper extremity as well Neuro-AAOx3 No hepatic Flap Lab data as noted below. ASSESSMENT & PLAN: Acute Decompensated Cirrhosis With increasing Ascites and pain No Encephalopathy H/O HCV sp treatment ,past ETOH abuse Possible spontaneous bacterial peritonitis w/ abd pain sx,No sepsis. Continue Diuresis Started on IV Ceftriaxone and will continue with oral Cipro as an OP Facilitate Lactulose, Rifaximin GI consulted -appreciate Input EGD -no obvious bleeding HB dropped to 7.3 on 03/09/17 Received 2 units of PRBC-Hb increased to 8.3 on 03/10/17 Upper gastrointestinal bleeding history of gastritis, history of esophageal varices on 2014 EGd, No active symptoms the last 24hrs Has been having Black stools Possibly related to OTC NSAID intake, Hb dropped and received 2 units of PRBC IV PPI b.i.d. for now. GI consult RE UGIB, ascites Hb >8 on 03/06/17 Received 4 units of RBC so far No overt GI bleed but Hb dropped to 7.3 on 03/09/17 Will give 2 more units of PRBC No obvious bleeding Hypertension, Stable. Chronic hyponatremia 2 to cirrhosis. Awaiting Transplant evaluation at [place] Electrolytes imbalance corrected DVT prophylaxis, SCDs RE thrombocytopenia. Full code. DISPOSITION PT/OT evaluation Monitor Hb -home when stable Discussed with the patient in detailed Offered to discuss with the family members If Stable ,likely discharge tomorrow Vital Signs: Date Time Temp Pulse Resp B/P Pulse Ox O2 Delivery O2 Flow Rate FiO2 03/10/17 12:05 36.7 96 18 155/79 99 Room Air 03/10/17 08:32 36.8 100 18 136/61 96 Room Air 03/10/17 08:00 96 Room Air 03/10/17 04:00 36.9 98 20 131/62 95 03/10/17 04:00 Room Air 03/10/17 00:05 37.0 103 18 132/61 97 Room Air 03/10/17 00:00 Room Air 03/09/17 21:00 37.1 105 22 131/53 92 03/09/17 20:30 37.2 105 20 128/61 94 03/09/17 20:00 Room Air 03/09/17 19:40 37.3 102 21 128/48 93 Room Air 03/09/17 19:30 37.1 101 16 130/50 91 03/09/17 19:00 37.0 104 21 132/54 96 03/09/17 18:15 36.7 104 20 144/62 97 03/09/17 18:00 107 22 138/62 98 03/09/17 17:45 36.7 106 24 137/62 98 03/09/17 17:33 36.9 104 25 141/58 98 03/09/17 16:03 37.1 103 21 132/53 97 Room Air 03/09/17 16:00 94 Room Air 03/09/17 15:45 36.9 102 28 132/53 97 03/09/17 15:15 103 22 129/52 96 03/09/17 14:45 107 18 128/51 98 03/09/17 14:15 106 19 130/47 98 03/09/17 14:00 36.7 105 20 131/58 98 03/09/17 13:45 103 20 125/52 97 03/09/17 13:30 100 21 129/52 98 03/09/17 13:15 36.6 102 18 125/54 97 03/09/17 13:00 36.6 102 18 111/37 98 Lab Results: Results Past 24 Hours Test 03/10/17 07:10 Range/Units White Blood Count 3.38 4.8-10.8 K/uL Red Blood Count 2.73 4.7-6.1 M/uL Hemoglobin 8.3 14.0-18.0 g/dL Hematocrit 24.8 42-52 % Mean Corpuscular Volume 90.8 80-100 fL Mean Corpuscular Hemoglobin 30.4 25-34 pg Mean Corpuscular Hemoglobin Concent 33.5 32-36 g/dl Platelet Count 47 130-400 K/uL Mean Platelet Volume 9.3 7.4-10.4 fL Neutrophils (%) (Auto) 74.5 % Lymphocytes (%) (Auto) 14.2 % Monocytes (%) (Auto) 8.9 % Eosinophils (%) (Auto) 1.2 % Basophils (%) (Auto) 0.6 % Neutrophils # (Auto) 2.52 1.4-6.5 K/uL Lymphocytes # (Auto) 0.48 1.2-3.4 K/uL Monocytes # (Auto) 0.30 0.11-0.59 K/uL Eosinophils # (Auto) 0.04 0-0.5 K/uL Basophils # (Auto) 0.02 0-0.2 K/uL RDW Standard Deviation 62.4 36.4-46.3 fL RDW Coefficient of Variation 19.3 11.5-14.5 % Immature Granulocyte % (Auto) 0.6 % Immature Granulocyte # (Auto) 0.02 0.00-0.02 K/uL Polychromasia 1+ Anisocytosis PRESENT Sodium Level 137 136-145 mmol/L Potassium Level 4.0 3.5-5.1 mmol/L Chloride Level 104 98-107 mmol/L Carbon Dioxide Level 25 21-32 mmol/L Anion Gap 8.0 3-11 mmol/L Blood Urea Nitrogen 10 7-18 mg/dl Creatinine 0.77 0.60-1.40 mg/dl Est Creatinine Clear Calc Drug Dose 158.0 ml/min Estimated GFR () 126.1 Estimated GFR (Non- 108.8 BUN/Creatinine Ratio 12.9 10-20 Random Glucose 98 70-99 mg/dl Calcium Level 7.6 8.5-10.1 mg/dl
[2017-03-11 03:52] VITALS: BP 118/64; PULSE 96; TEMP 37.3; O2SAT 96
[2017-03-11] MEDS: MoRPHine SULFATE 4 MG/ML 1 ML CARP\\VIAL IV PRN ×2 (03:52→07:54)
[2017-03-11 07:25] LABS: HEMATOCRIT 27.8 % (42-52); MEAN CELL VOLUME 92.7 fL (80-100); MEAN CORPUSCULAR HEMOGLOBIN 30.3 pg (25-34); MEAN CORPUSCULAR HGB CONC 32.7 g/dl (32-36); WHITE BLOOD COUNT 5.32 K/uL (4.8-10.8)
[2017-03-11 07:29] LABS: MEAN PLATELET VOLUME 9.1 fL (7.4-10.4); PLATELET COUNT 51 K/uL (130-400)
[2017-03-11 07:38] VITALS: BP 132/70; PULSE 98; TEMP 36.6; O2SAT 98
[2017-03-11] MEDS: PANTOprazole INJ 40 MG in SYRINGE 0 ML IV SCH (07:52)
[2017-03-11] MEDS: SPIRONOLACTONE 25 MG TAB PO SCH (07:52)
[2017-03-11] MEDS: LACTULOSE SYRUP 20 GM/30 ML UDC PO SCH (07:53)
[2017-03-11] MEDS: FUROSEMIDE 40 MG TAB PO SCH (07:53)
[2017-03-11] MEDS: POTASSIUM CHLORIDE 20 MEQ TABCR PO SCH (07:53)
[2017-03-11] MEDS: CIPROFLOXACIN 500 MG TAB PO SCH (07:53)
[2017-03-11] MEDS: RIFAXIMIN TAB 550 MG TAB PO SCH (07:54)
[2017-03-11 08:00] VITALS: O2SAT 98
[2017-03-11 08:20] LABS: BUN/CREATININE RATIO 11.6 (10-20); CALCIUM 8.1 mg/dl (8.5-10.1); CREATININE 0.77 mg/dl (0.60-1.40); POTASSIUM 4.5 mmol/L (3.5-5.1)
[2017-03-11 08:30] LABS: ANISOCYTOSIS PRESENT; BASO % 0.4 %; BASO ABS # 0.02 K/uL (0-0.2); COMPLETE YES; EOS % 0.9 %; IG% 1.1 %; LYMPH % 12.4 %; LYMPH ABS # 0.66 K/uL (1.2-3.4); MONO % 8.1 %; NEUT % 77.1 %
--- NOTE | 2017-03-11 10:43 | Progress Note ---
Internal Med Progress Note Date of Service: March 11, 2017. Provider Documentation: SUBJECTIVE: The patient was seen and examined Complains of some abdominal discomfort OOB in a chair Bowel moved Advised -more ambulation OBJECTIVE: Vital Signs-as noted below Exam: General-no distress at rest Eyes-normal ENT-normal Neck-supple Lungs-decreased breath sound bilaterally No crackles Heart-Regular,no murmur appreciated Abdomen-Distended,soft ,mildly tender ,bowel sound present Extremities-+1 edema bilaterally Swelling right upper extremity as well-improved Neuro-AAOx3 No hepatic Flap Lab data as noted below. ASSESSMENT & PLAN: Acute Decompensated Cirrhosis With increasing Ascites and pain No Encephalopathy H/O HCV sp treatment ,past ETOH abuse Possible spontaneous bacterial peritonitis w/ abd pain sx,No sepsis. Continue Diuresis Started on IV Ceftriaxone and will continue with oral Cipro as an OP Facilitate Lactulose, Rifaximin GI consulted -appreciate Input EGD -no obvious bleeding HB dropped to 7.3 on 03/09/17 Received 2 units of PRBC-Hb increased to 8.3 on 03/10/17 Hb remains stble Upper gastrointestinal bleeding history of gastritis, history of esophageal varices on 2014 EGd, No active symptoms the last 24hrs Has been having Black stools Possibly related to OTC NSAID intake, Hb dropped and received 2 units of PRBC IV PPI b.i.d. for now. GI consult RE UGIB, ascites Hb >8 on 03/06/17 Received 4 units of RBC so far No overt GI bleed but Hb dropped to 7.3 on 03/09/17 Will give 2 more units of PRBC No obvious bleeding Received a total of 6 units of blood Likely home today after Physical Therapy Hypertension, Stable. Chronic hyponatremia 2 to cirrhosis. Awaiting Transplant evaluation at [facility] Electrolytes imbalance corrected-PRP normalized DVT prophylaxis, SCDs RE thrombocytopenia. Full code. DISPOSITION PT/OT evaluation Monitor Hb -home when stable Discussed with the patient in detailed Discussed with the Mother and the sister Likely home today after dialysis Vital Signs: Date Time Temp Pulse Resp B/P Pulse Ox O2 Delivery O2 Flow Rate FiO2 03/11/17 07:38 36.6 98 20 132/70 98 Room Air 03/11/17 04:00 Room Air 03/11/17 03:52 37.3 96 22 118/64 96 Room Air 03/11/17 00:00 Room Air 03/10/17 23:26 37.8 102 22 130/63 94 Room Air 03/10/17 20:00 Room Air 03/10/17 19:47 37.2 99 18 121/56 95 Room Air 03/10/17 16:00 Room Air 03/10/17 15:55 37.1 96 18 121/62 96 03/10/17 12:05 36.7 96 18 155/79 99 Room Air 03/10/17 12:00 Room Air Lab Results: Results Past 24 Hours Test 03/11/17 07:10 Range/Units White Blood Count 5.32 4.8-10.8 K/uL Red Blood Count 3.00 4.7-6.1 M/uL Hemoglobin 9.1 14.0-18.0 g/dL Hematocrit 27.8 42-52 % Mean Corpuscular Volume 92.7 80-100 fL Mean Corpuscular Hemoglobin 30.3 25-34 pg Mean Corpuscular Hemoglobin Concent 32.7 32-36 g/dl Platelet Count 51 130-400 K/uL Mean Platelet Volume 9.1 7.4-10.4 fL Neutrophils (%) (Auto) 77.1 % Lymphocytes (%) (Auto) 12.4 % Monocytes (%) (Auto) 8.1 % Eosinophils (%) (Auto) 0.9 % Basophils (%) (Auto) 0.4 % Neutrophils # (Auto) 4.10 1.4-6.5 K/uL Lymphocytes # (Auto) 0.66 1.2-3.4 K/uL Monocytes # (Auto) 0.43 0.11-0.59 K/uL Eosinophils # (Auto) 0.05 0-0.5 K/uL Basophils # (Auto) 0.02 0-0.2 K/uL RDW Standard Deviation 63.7 36.4-46.3 fL RDW Coefficient of Variation 19.6 11.5-14.5 % Immature Granulocyte % (Auto) 1.1 % Immature Granulocyte # (Auto) 0.06 0.00-0.02 K/uL Anisocytosis PRESENT Sodium Level 136 136-145 mmol/L Potassium Level 4.5 3.5-5.1 mmol/L Chloride Level 103 98-107 mmol/L Carbon Dioxide Level 24 21-32 mmol/L Anion Gap 9.0 3-11 mmol/L Blood Urea Nitrogen 9 7-18 mg/dl Creatinine 0.77 0.60-1.40 mg/dl Est Creatinine Clear Calc Drug Dose 160.5 ml/min Estimated GFR () 126.1 Estimated GFR (Non- 108.8 BUN/Creatinine Ratio 11.6 10-20 Random Glucose 100 70-99 mg/dl Calcium Level 8.1 8.5-10.1 mg/dl
[2017-03-11 12:24] VITALS: BP 123/62; PULSE 94; TEMP 36.4; O2SAT 100
[2017-03-11] MEDS ORDERED: LCTX PO (12:29)
[2017-03-11] MEDS ORDERED: CPR500 PO (12:29)
[2017-03-11] MEDS ORDERED: ULT50X PO (12:29)
--- NOTE | 2017-03-11 12:31 | Discharge Instructions ---
Discharge Instructions Date of Service March 11, 2017. Admission Reason for Admission: UGIB Discharge Discharge Diagnosis / Problem: Decompensated Cirrhosis Discharge Goals Goal(s): Prevent Disease Progression Activity Recommendations Activity Limitations: resume your previous activity . Instructions / Follow-Up Instructions / Follow-Up Dr Humphries on 03/15/17 at 9:45 AM.Keep appointment with your GI doctor Current Hospital Diet Patient's current hospital diet: Regular Diet Discharge Diet Recommended Diet: Low Sodium Diet (2gm Na) Fluid Restriction: 1500 ml (6 cups) Procedures Procedures Performed: EGD Pending Studies Studies pending at discharge: no Medical Emergencies . Who to Call and When: Medical Emergencies: If at any time you feel your situation is an emergency, please call 911 immediately. . Non-Emergent Contact Non-Emergency issues call your: Primary Care Provider . Past History Medical & Surgical History: (1) Hepatitis C (2) HTN (hypertension) (3) Esophageal varices (4) Decompensation of cirrhosis of liver (5) Shortness of breath (6) Anemia (7) End stage liver disease (8) UGIB (upper gastrointestinal bleed) (9) PUD (peptic ulcer disease) (10) H/O esophagogastroduodenoscopy (11) History of back surgery (12) S/P tonsillectomy and adenoidectomy . "Provider Documentation" section prepared by Darlene Rogers. . VTE Core Measure Inpt VTE Proph given/why not?: SCD's
[2017-03-11 12:45] VITALS: BP 123/62; PULSE 94; TEMP 36.4; O2SAT 100
--- NOTE | 2017-03-11 18:35 | Discharge Summary ---
Discharge Summary Date of Service March 11, 2017. Discharge Summary Admission Date: March 06, 2017 at 00:36 Discharge Date: March 11, 2017 Discharge Disposition: Home Principal Diagnosis: Decompensated Cirrhosis Secondary Diagnoses/Problems: Please see H&P and Hospital Progress note Procedures: EGD Consultations: GI Medication Reconciliation New Medications: Lactobacillus Acidophilus (Lactinex) Tab 2 TAB PO BID, #30 TAB Ciprofloxacin (Ciprofloxacin HCl) 500 Mg Tab 500 MG PO BID for 7 Days, #14 TAB Tramadol HCl (Tramadol HCl) 50 Mg Tab 25 MG PO Q6H PRN for Pain for 10 Days, #30 TAB Continued Medications: Furosemide (Lasix) 40 Mg Tab 1 TAB PO DAILY for 10 Days, #10 TAB Lactulose (Chronulac) 10 Gm/15 Ml Syrp 10 GM PO QID Omeprazole (Prilosec) 20 Mg Capcr 20 MG PO BID, CAP Potassium Chloride (Klor-Con M20) 20 Meq Tabcr 20 MEQ PO DAILY Rifaximin (Xifaxan) 550 Mg Tab 550 MG PO BID Spironolactone (Aldactone) 25 Mg Tab 50 MG PO BID for 30 Days, #120 TAB Discontinued Medications: Furosemide (Lasix) 20 Mg Tab 20 MG PO DAILY, TAB Ibuprofen Tab (Motrin) 800 Mg Tab 800 MG PO Q8H PRN for Pain, TAB Admission Information HPI (per Admitting provider): DATE OF ADMISSION: 03/06/2017 PRIMARY CARE DOCTOR: Dr. Lagunas. Hx obtained from px and records. CHIEF COMPLAINT: Abdominal distention, pain, and leg swelling. HISTORY OF PRESENT ILLNESS: Medical history significant for HTN, cirrhosis secondary to HCV sp treatment, history of esophageal varices/gastritis as per records, past alcohol abuse, chronic anemia (baseline hemoglobin of 8), chronic hyponatremia. Recent confinement recent January 2017 for tense ascites. Patient treated with diuretics. Px seen at the ER last week for shortness of breath and ascites. Patient had US guided dx/tx paracentesis. Peritoneal WBC noted to be 617. Px subsequently discharged. from the ER. Px admits to increasing abdominal distention w/ lower achy abd pain, leg swelling over the last few days. Patient admits to missing a few doses of home diuretics from time to time. Transient bloody/ black stools about 2 days ago. Formed brown stools all of yesterday. No nausea, no emesis, no fever, no chills. No chest pain. Some SOB, no unusual cough sx. Patient admits to intermittent intake of Advil about 2 pills a day for some tooth ache the last few days. At the Emergency Room, the patient received vancomycin and Zosyn. MEDICAL HISTORY: As above. EGD from June 2015 showed small esophageal varices, small hiatal hernia and gastritis. SURGERIES: He has had tonsillectomy and adenectomy. He also had back surgery. HOME MEDICATIONS: Include Lasix, lactulose, Prilosec, Klor-Con, and Xifaxan. ALLERGIES: No known drug allergies. FAMILY HISTORY: Heart disease. PERSONAL AND SOCIAL HISTORY: Nonsmoker, past alcohol abuse, disabled. REVIEW OF SYSTEMS: As per HPI, all other ROS negative. PHYSICAL EXAMINATION: VITAL SIGNS: Blood pressure was noted to be 120/80, pulse rate 106, RR 18, temperature 36.7, sats 100 on room air. GENERAL: Noted to be chronically ill, looks older for stated age, no respiratory distress, occasionally lethargic. obese SKIN: pallor, jaundice. HEENT: Pale palpebral conjunctivae, dry mucosa. NECK: Short neck. LUNGS: Decreased breath sounds. HEART: Tachycardic. ABDOMEN: hypogastric tenderness, some distention. no overt fluid wave EXTREMITIES: Minimal bilateral lower extremity edema, no tenderness. NEUROLOGIC: No gross focality except for occasional lethargy. LABORATORY DATA: Hemoglobin was noted to be 6.7, white blood cell count 5, and platelets 89. Sodium 131, potassium 4, chloride 101, CO2 of 21, BUN 20, creatinine 0.9, and glucose 112. Ammonia level was noted to be 69. ASSESSMENT: 1. Decompensated cirrhosis. hx HCV sp tx past ETOH abuse Upper gastrointestinal bleeding history of gastritis, history of esophageal varices on 2014 EGd, no active symptoms the last 24hrs hemoglobin drop from baseline possibly related to OTC NSAID intake, recurrent ascites px admits to missing a few doses of home diuretics possible spontaneous bacterial peritonitis w/ abd pain sx no sepsis. mild hepatic encephalopathy 2. Hypertension, stable. 3. Chronic hyponatremia 2 to cirrhosis. PLAN: PCU serial HH, transfuse pRBC to maintain hemoglobin greater than 7. IV PPI b.i.d. for now. GI consult RE UGIB, ascites Patient counselled about hazards of OTC NSAID use given liver disease and previous EGD findings. diuretic tx diagnostic/ therapeutic paracentesis IV Ceftriaxone for possible SBP for now. (Cefotaxime not available) facilitate Lactulose, Rifaximin DVT prophylaxis, SCDs RE thrombocytopenia. Full code. Hospital Course Acute Decompensated Cirrhosis With increasing Ascites and pain No Encephalopathy H/O HCV sp treatment ,past ETOH abuse Possible spontaneous bacterial peritonitis w/ abd pain sx,No sepsis. Continue Diuresis Started on IV Ceftriaxone and will continue with oral Cipro as an OP Facilitate Lactulose, Rifaximin GI consulted -appreciate Input EGD -no obvious bleeding HB dropped to 7.3 on 03/09/17 Received 2 units of PRBC-Hb increased to 8.3 on 03/10/17 Hb remains stble Upper gastrointestinal bleeding history of gastritis, history of esophageal varices on 2014 EGd, No active symptoms the last 24hrs Has been having Black stools Possibly related to OTC NSAID intake, Hb dropped and received 2 units of PRBC IV PPI b.i.d. for now. GI consult RE UGIB, ascites Hb >8 on 03/06/17 Received 4 units of RBC so far No overt GI bleed but Hb dropped to 7.3 on 03/09/17 Will give 2 more units of PRBC No obvious bleeding Received a total of 6 units of blood Likely home today after Physical Therapy Hypertension, Stable. Chronic hyponatremia 2 to cirrhosis. Awaiting Transplant evaluation at [facility] Electrolytes imbalance corrected-PRP normalized DVT prophylaxis, SCDs RE thrombocytopenia. Full code. DISPOSITION PT/OT evaluation Monitor Hb -home when stable Discussed with the patient in detailed Discussed with the Mother and the sister Likely home today after dialysis Total time spent on discharge = 35 minutes This includes examination of the patient, discharge planning, medication reconciliation, and communication with other providers. Discharge Instructions Date of Service March 11, 2017. Admission Reason for Admission: UGIB Discharge Discharge Diagnosis / Problem: Decompensated Cirrhosis Discharge Goals Goal(s): Prevent Disease Progression Activity Recommendations Activity Limitations: resume your previous activity . Instructions / Follow-Up Instructions / Follow-Up Dr Humphries on 03/15/17 at 9:45 AM.Keep appointment with your GI doctor Current Hospital Diet Patient's current hospital diet: Regular Diet Discharge Diet Recommended Diet: Low Sodium Diet (2gm Na) Fluid Restriction: 1500 ml (6 cups) Procedures Procedures Performed: EGD Pending Studies Studies pending at discharge: no Medical Emergencies . Who to Call and When: Medical Emergencies: If at any time you feel your situation is an emergency, please call 911 immediately. . Non-Emergent Contact Non-Emergency issues call your: Primary Care Provider . Past History Medical & Surgical History: (1) Hepatitis C (2) HTN (hypertension) (3) Esophageal varices (4) Decompensation of cirrhosis of liver (5) Shortness of breath (6) Anemia (7) End stage liver disease (8) UGIB (upper gastrointestinal bleed) (9) PUD (peptic ulcer disease) (10) H/O esophagogastroduodenoscopy (11) History of back surgery (12) S/P tonsillectomy and adenoidectomy . "Provider Documentation" section prepared by Darlene Rogers. . VTE Core Measure Inpt VTE Proph given/why not?: SCD's <Electronically signed by Darlene Rogers M.D.> Additional Copies To Valeria Lagunas M.D.
== END 2017-03-11 13:35 | disposition home health service (06) | DRG 377 ==
LOC: ENRESERVTM → ENRESERVDT → C.EDB 19:35 → C.2E 03-06 00:36
PROVIDERS: ADMIT Internal Medicine; ATTEND Internal Medicine
PROC: 0DJ08ZZ Inspection of Upper Intestinal Tract, Via Natural or Artificial Opening Endoscopic (ICD-10-PCS; principal; 2017-03-07 10:08)
DX: K92.2 Gastrointestinal hemorrhage, unspecified (principal); K65.2 Spontaneous bacterial peritonitis; E87.1 Hypo-osmolality and hyponatremia; K72.90 Hepatic failure, unspecified without coma; D69.6 Thrombocytopenia, unspecified; I10 Essential (primary) hypertension; Z82.49 Family history of ischemic heart disease and other diseases of the circulatory system; Z86.19 Personal history of other infectious and parasitic diseases; T50.2X5A Adverse effect of carbonic-anhydrase inhibitors, benzothiadiazides and other diuretics, initial encounter; T39.395A Adverse effect of other nonsteroidal anti-inflammatory drugs [NSAID], initial encounter; K70.31 Alcoholic cirrhosis of liver with ascites; K31.89 Other diseases of stomach and duodenum